=== PATIENT | female | born 1960 | race Caucasian/White ===

== ENCOUNTER → 2016-11-11 | Outpatient (CLI) | payer OTHER ==
--- NOTE | 2016-11-11 11:50 | DX ---
Abdomen 2 view 10:56 a.m. Indication: Right-sided pain. History of endometrial carcinoma. Evaluate for obstruction. Technique: Upright and supine views. Comparison: No abdominal imaging available for comparison. Findings: Lung bases are clear. Moderate volume of retained stool is present throughout the normal ca liber gaseous colon. Two loops of small bowel in the right lower quadrant are moderately distended. S everal small air-fluid levels reside in the upper central pelvis. No pneumoperitoneum or mass effect. Surgical clips are scattered throughout the low pelvis. No lytic or blastic bone lesions. Impression: Focal adynamic ileus versus early partial small bowel obstruction in the right lower briana drant. Comment: The results were called to Jeanine Self NP, at 1145 a.m. on November 11, 2016.
--- NOTE | 2016-11-11 11:52 | DX ---
Pelvis, single view Indication: Abdominal pain. History of endometrial carcinoma. Technique: Single supine view of the pelvis. Study was reviewed jointly with two-view abdomen reporte d separately. Findings: Mildly distended loops of small bowel in the right lower quadrant are better characterized on the two-view abdomen. Gas and stool are present throughout the colon down to the level of the rect um. Numerous surgical clips are scattered throughout the pelvis. No lytic or blastic bone lesions. Impression: 1. Abnormal small bowel pattern better characterized on the two-view of the abdomen. 2. No pelvic mass or bone lesion. Comment: Results were called to Jeanine Self NP, at 11:45 a.m. on November 11, 2016.
--- NOTE | 2016-11-11 12:08 | US ---
Complete Abdominal Ultrasound History: Nausea, vomiting and epigastric pain. History of endometrial cancer. Comparison: None available. Findings: The liver has normal echotexture and contour. There is no intrahepatic biliary dilatation. The common bile duct measures 5 mm and is normal. The gallbladder is normal. The kidneys have normal echotexture and contour without hydronephrosis or contour deforming masses. The right kidney measures 11.5 cm and the left kidney measures 10.9 cm. The spleen is normal, measuring 10.9 cm. The visible a darnell is normal caliber with extensive obscuration of the aorta by overlying bowel gas. The visible po rtions of the pancreas are normal with partial obscuration of the pancreatic head and tail by overlyi ng bowel gas. The visible portions of the IVC are normal. Impression: Normal abdominal ultrasound. Findings discussed with Jeanine Self NP 11/11/2016 at 12:06.
== END ==
LOC: FIMAGING 10:48
PROVIDERS: ATTEND Nurse Practitioner
DX: R93.3 Abnormal findings on diagnostic imaging of other parts of digestive tract (principal); R10.10 Upper abdominal pain, unspecified; R11.10 Vomiting, unspecified; Z85.42 Personal history of malignant neoplasm of other parts of uterus

== ENCOUNTER 2016-11-14 09:24 | Inpatient (IN) | payer OTHER ==
[2016-11-14 10:10] LABS: % IMMATURE GRANULOCYTES 0.2 % (0.0-1.1); ABSOLUTE IMMATURE GRANULOCYTES 0.01 10^3/uL (0-0.10); HEMATOCRIT 41.4 % (38.0-47.0); HEMOGLOBIN 13.7 g/dL (12.6-16.3); MEAN CELL HEMOGLOBIN 31.3 pg (27.9-34.1); MEAN CELL HEMOGLOBIN CONC. 33.1 g/dL (32.4-36.7); MEAN CELL VOLUME 94.5 fL (81.5-99.8); MEAN PLATELET VOLUME 9.3 fL (8.7-11.7); RED BLOOD CELL COUNT 4.38 10^6/uL (4.18-5.33); RED CELL DISTRIBUTION WIDTH 13.7 % (11.5-15.2)
[2016-11-14 10:34] LABS: ALANINE AMINOTRANSFERASE 33 IU/L (9-52); ALBUMIN 3.6 g/dL (3.5-5.0); ALKALINE PHOSPHATASE 66 IU/L (38-126); ANION GAP 7 mEq/L (8-16); ASPARTATE AMINOTRANSFERASE 26 IU/L (14-46); BILIRUBIN,TOTAL 0.8 mg/dL (0.1-1.4); CALCIUM 8.6 mg/dL (8.5-10.4); CARBON DIOXIDE 23 mEq/l (22-31); CHLORIDE 110 mEq/L (97-110); CREATININE 0.7 mg/dL (0.6-1.0); GLOMERULAR FILTRATION RATE > 60; GLUCOSE 94 mg/dL (70-100); SODIUM 140 mEq/L (134-144); TOTAL PROTEIN 6.1 g/dL (6.3-8.2)
[2016-11-14] MEDS ORDERED: ACETAMINOPHEN 650 MG SUPP PR PRN (12:19)
[2016-11-14] MEDS ORDERED: ONDANSETRON DISINTEGRATING 4 MG TAB PO PRN (12:19)
[2016-11-14] MEDS ORDERED: LORazepam 2 MG/ML INJ IVP PRN (12:19)
[2016-11-14] MEDS ORDERED: ONDANSETRON 4 MG/2 ML VIAL IVP PRN (12:19)
[2016-11-14] MEDS ORDERED: HYDROmorphONE/DILAUDID 1 MG/ML SYR IVP PRN (12:19)
[2016-11-14] MEDS ORDERED: NS 1,000 ML IV ONE (12:24)
[2016-11-14] MEDS ORDERED: D5W NS W/ 20 KCl/L 1,000 ML IV SCH (12:30)
--- NOTE | 2016-11-14 13:39 | GHP ---
[f rep st] HISTORY AND PHYSICAL DATE OF ADMISSION: 11/14/2016 CHIEF COMPLAINT: Abdominal pain. HISTORY OF PRESENT ILLNESS: The patient is a 56-year-old female with a history of metastatic endomet rial cancer followed by Dr. Amador at the [facility] who presents to the hospital for direct admission from the Cancer Clinic due to concern for a small bowel obstruction. She was in itially diagnosed with endometrial cancer in March of 2015. She underwent a hysterectomy with bilater al salpingo oophorectomy in March of 2015. She then underwent chemo and radiation therapy. Unfortdilia sauer, she had a recurrence in December of 2015, and required a partial colectomy. At that time, her CA- 125 was elevated. She underwent another round of chemo and radiation starting in January 2016. Most r ecently, she has been treated with Avastin and has been receiving Avastin every 3 weeks, most recentl y on November 06, 2015. Over the past 2 weeks, the patient has been suffering from crampy upper abdominal discomfort. She simon s had several episodes of vomiting. She does not have a bowel movement every day. Her last bowel mo vement was last night, which was loose followed by formed stool. She denies hematochezia or melanoti c stools. She denies fevers or chills. She was evaluated in the clinic 3 days ago, at which time an abdominal plain film x-ray was performed which showed a focal adynamic ileus versus partial small forest wel obstruction in the right lower quadrant. Her symptoms persist and upon re-evaluation in clinic mavis adame she was sent to the hospital for direct admission for further management. She has had poor oral intake. PAST MEDICAL HISTORY: 1. Metastatic endometrial cancer. 2. Hypertension. 3. Peripheral neuropathy. PAST SURGICAL HISTORY: 1. Radical hysterectomy/BSO in April 2015. 2. Sigmoid colon resection secondary to pelvic mass in January of 2016. 3. Tonsillectomy and adenoidectomy. MEDICATIONS: Please see [facility] for complete updated outpatient medication list. ALLERGIES: Paclitaxel. FAMILY HISTORY: She had a niece who of pancreatic cancer at age 48. She lost a brother to meso thelioma and lost another brother to some type of lung cancer. 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 She is a lifeti me nonsmoker. No significant alcohol use and no drug use. REVIEW OF SYSTEMS: A 10-point review of systems was performed and is negative except as per HPI. OBJECTIVE: VITAL SIGNS: Temperature is 36.8, blood pressure 160/103, heart rate 64, respiratory rat e 14. She is 96% on room air. GENERAL: The patient is awake, alert, oriented, no acute distress. HEENT: Head is atraumatic, normocephalic. Pupils equal, round, react to light. Extraocular muscles are intact. Oropharynx clear. Mucous membranes are dry. NECK: Supple. There is no JVD. HEART: Regular rate and rhythm without murmur. LUNGS: Clear to auscultation bilaterally. ABDOMEN: Soft, nondistended. Mild tenderness to palpation in the epigastrium and left lower quadrant without rebou nd, rigidity or guarding. There are no peritoneal signs. EXTREMITIES: Without cyanosis, clubbing o r edema. NEUROLOGIC: Grossly nonfocal. LABORATORY DATA: CBC is completely normal. Basic metabolic panel is also completely normal with nor mal creatinine of 0.7. LFTs are normal. Total protein is slightly low at 6.1. ASSESSMENT AND PLAN: The patient is a 56-year-old female with a history of metastatic endometrial ca ncer who is admitted to the hospital with abdominal pain possibly secondary to partial bowel obstruct ion. 1. Abdominal pain. I reviewed her imaging from November 11, at which time her abdominal plain film w as suggestive of an ileus versus a partial small bowel obstruction in the right lower quadrant. She appears volume depleted. We will give a normal saline fluid bolus followed by maintenance fluids. T he patient will be n.p.o. We will obtain a stat CT chest, abdomen and pelvis, and we will make a det ermination by an NG tube after I review her imaging. At this point, my suspicion for perforation is low though given her Avastin treatment she is certainly at risk for perforation. She appears nontoxi c and we will approach this conservatively for the time being and involve surgery as needed. 2. Metastatic endometrial cancer. The patient is followed by Dr. Amador at the [facility]. Oncology will consult during this hospitalization. Her last Avastin treatment was on ry 2. She has had a prior radical hysterectomy followed by a partial colon resection, both of which increase her risk for adhesions and may contribute to her small bowel obstruction. 3. Hypertension. Patient's blood pressure is quite elevated on arrival at 160/103. Since she is n. p.o., I am going to give her IV hydralazine. Could also add IV metoprolol, though her resting heart rate is currently in the 60s. 4. Deep venous thrombosis prophylaxis: Lovenox. CODE STATUS: Patient is full code. DISPOSITION: Patient is admitted to inpatient status. She will likely require greater than 48 hours hospitalization for ongoing management of her abdominal pain and suspected small bowel obstruction. /[id number]/MODL
--- NOTE | 2016-11-14 14:59 | GCON ---
[f rep st] CONSULTATION NEW PATIENT CONSULTATION. REQUESTING PHYSICIAN: Dr. Rolon. REASON FOR CONSULTATION: Patient with history of endometrial cancer, presents with partial small bow el obstruction. HISTORY OF PRESENT ILLNESS: This is a 56-year-old woman with a history of stage IA endometrial cance r diagnosed in 2014. This is a clear cell adenocarcinoma. She was ER positive. At that time, she h ad debulking surgery in 2014, and then went on to have a local pelvic recurrence in 2016 that was lar bharat than imaging showed, and she ended up having a large bowel resection. She was then treated with chemotherapy and Avastin, and also treated with radiation which completed in June of 2016. She has been on maintenance Avastin and doing well with the exception of a slightly rising CA-125. On , she presented to the office of Dr. Amador with complaints of abdominal pain that she had b een having for a couple of weeks. She noted some diarrhea and abdominal pain, but her son was sick w ith diarrhea as well. The abdominal pain continued, and she did report normal stools; however, she r eported vomiting after she drinks coffee. She had vomited a few times in the past 48 hours. She did have an abdominal ultrasound that was ordered at that time that showed mildly dilated loop in the tr ansverse colon. No complete obstruction. The patient was not acutely ill, and so tried to manage on an outpatient basis with a clear liquid diet and IV hydration. Unfortunately, she returned to the o ffice today, reporting that she had vomited applesauce last night. Her last dose of Avastin was 11/2016. She has some moderate abdominal pain, right upper quadrant, and she does report a normal stool yester day. She has not thrown up yet today. She is pending a stat CT chest abdomen pelvis to evaluate for either progression of disease in addition to a bowel obstruction or other. REVIEW OF SYSTEMS: She denies any current vomiting. She did have a bowel movement yesterday. She d enies any fever or fatigue. Her weight is stable. Denies any chest pain or shortness of breath. Ot herwise, review of systems are negative. PAST MEDICAL HISTORY: As described above. She has had neutropenic fever from treatment of endometri al cancer and dehydration previously. FAMILY HISTORY: Noncontributory. CURRENT MEDICATIONS: Have been reviewed. She has been on blood pressure medicines due to elevated b lood pressure, partly due to Avastin. She also has been given Megace alternating with tamoxifen. I do not know if she is still taking this. PHYSICAL EXAM: VITAL SIGNS: Currently show blood pressure 160/103, pulse is 64, respiration rate 14 , saturating 96% on room air, temp is 36.8. GENERAL: She is a middle-aged woman, very comfortable a ppearing, not in acute distress. HEENT: Anicteric. Oropharynx is clear. HEART: Regular rate and rhythm. LUNGS: Clear to auscultation bilaterally. ABDOMEN: Soft, not rigid. Bowel sounds are pos itive in all 4 quadrants. She has slight tenderness, right upper quadrant, without any palpable mass . EXTREMITIES: Lower extremities: No significant edema. LABS: Reviewed and all within normal limits. I will mention that her CEA is up slightly recently to 26.9. ASSESSMENT AND PLAN: A 56-year-old woman with a history of endometrial cancer, admitted with partial small bowel obstruction. Patient has recently been on Avastin maintenance therapy as well as anti-e strogen therapy for her endometrial cancer. 1. Small bowel obstruction. I feel very low likelihood that this is a perforation given how well sh e looks clinically. She is pending a CT abdomen at this time to evaluate further, but we are startin g with conservative management, n.p.o., IV fluids, possible nasogastric tube, etc. No need for antib iotics. 2. Endometrial cancer. Will also include a CT chest during this admission to evaluate for progressi on given her rising CA-125. 3. Blood pressure. Appreciate Internal Medicine. Probably partly due to Avastin. Consider checkin g a urinalysis for protein, either this admission or on discharge. 4. Prophylaxis. Agree with Lovenox. /[id number]/MODL
[2016-11-14] MEDS ORDERED: IOPAMIDOL (ISOVUE-300) 100 ML BTL IV ONE (15:31)
--- NOTE | 2016-11-14 16:42 | CT ---
CT Chest With IV Contrast History: History of metastatic endometrial carcinoma. History of radical hysterectomy and bilateral s alpingo-oophorectomy in April 2015. Partial sigmoid colon resection secondary to pelvic mass in January 2016. Technique: 1.5 mm helical images were obtained of the chest postintravenous contrast with 94 mL Isovu e-300. Multiplanar reformation was performed. Radiation dose reduction technique was utilized. Findings: Heart size is within normal limits. No evidence for pericardial effusion. No significant me diastinal or hilar lymphadenopathy. No significant axillary or supraclavicular lymphadenopathy. The l ungs are clear. No evidence for pulmonary nodule. No evidence for pneumonia. No evidence for pleural effusion. No aggressive osseous lesion. Impression: Normal CT of the chest.
--- NOTE | 2016-11-14 17:03 | CT ---
CT Scan of the Abdomen and Pelvis (With Contrast) Indication: Abdominal pain. History of metastatic endometrial carcinoma. Status post hysterectomy an d bilateral salpingo-oophorectomy in April 2015. History of sigmoid colon resection secondary to pelvi c mass in January 2016. Technique: 94 mL of Isovue 300 were given intravenously by machine power injection. Multidetector he lical CT imaging was performed from the diaphragm to the symphysis pubis. Dose reduction techniques w ere utilized. Comparison: Scan from [facility] October 2016. Findings: Abdomen: No focal liver lesion. Gallbladder is unremarkable. Pancreas is unremarkable. Spleen is unr emarkable. Both adrenal glands are normal in size and appearance. Both kidneys enhance normally witho ut evidence for mass or hydronephrosis. No significant abdominal lymphadenopathy. Pelvis: There is multiple loops of small bowel in the anterior pelvis with bowel wall thickening and adjacent stranding in the mesentery. This has increased or new over the interval. Proximal to this, there are loops of small bowel which are dilated with air-fluid levels. This would indicate there is a partial small bowel obstruction, this level of the distal small bowel in the anterior inferior pelv is. The patient is status post hysterectomy. Surgical clips are seen along the iliac vessels in the p ingris from prior lymph node dissection. No enlarged pelvic lymph nodes are visualized. There is some subtle stranding or soft tissue attenuation anterior to the sacrum. There is also evidence of partial bowel resection of the sigmoid colon with nodular soft tissue at the anastomosis, but no obstruction . No evidence for bladder calculi. No significant free fluid in the pelvis. No evidence for free intr aperitoneal air. No aggressive osseous lesion. Impression: There are multiple loops of small bowel in the anterior inferior pelvis with bowel wall thickening and adjacent stranding in the mesentery. Proximal to this, there are loops of small bowel with air-fluid levels and mildly dilated indicating partial small bowel obstruction. With the history of metastatic endometrial carcinoma, this is likely the etiology to the thickened bowel wall and str anding. Question also some subtle soft tissue anterior to the sacrum. Additionally, there is nodulari ty of the wall at the anastomosis at the sigmoid colon, but no evidence for obstruction.
[2016-11-14] MEDS: hydrALAZINE 20 MG/ML VIAL IVP PRN (18:14)
[2016-11-14] MEDS: PROMETHAZINE HCL 25 MG/ML INJ IVP PRN (18:24)
--- NOTE | 2016-11-14 18:40 | DX ---
Portable AP Upright Chest, at 6:12 PM Clinical History: 56-year-old female inpatient for confirmation of nasogastric tube placement. Comparison Studies: Chest, dated 01/26/2016, and the report of CT imaging of the chest, abdomen, and p ingris from this afternoon. Findings: There is an esophagogastric tube with the side-port and the distal tip terminating at the l evel of the gastric fundus. There are mild hypoventilatory features with some left basilar linear sca rring, similar to the 2016 study. The cardiac and mediastinal silhouette is within normal limits, giv en the portable AP technique and mildly diminished inspiratory effort. There is no pleural effusion, peripheral interstitial edema, or pneumothorax. There are some nonspecific air-filled loops of colon in the upper abdomen. There is no free, subdiaphragmatic air. Impression: The esophagogastric tube terminates at the level of the gastric fundus.
[2016-11-15] MEDS: ENOXAPARIN 40 MG/0.4 ML SYR SC SCH (08:12)
[2016-11-15 09:02] LABS: ANION GAP 10 mEq/L (8-16); CALCIUM 8.1 mg/dL (8.5-10.4); CARBON DIOXIDE 21 mEq/l (22-31); CHLORIDE 116 mEq/L (97-110); CREATININE 0.6 mg/dL (0.6-1.0); GLOMERULAR FILTRATION RATE > 60; GLUCOSE 101 mg/dL (70-100); POTASSIUM 4.1 mEq/L (3.5-5.2); SODIUM 147 mEq/L (134-144)
--- NOTE | 2016-11-15 11:05 | HOSPPROG ---
Hospitalist Progress Note Assessment/Plan: Partial SBO in setting of metastatic endometrial cancer s/p prior radical hysterectomy and partial colon resection - CT shows bowel wall thickening with air fluid levels. NG tube in place. She is having BM's, but has suffered for 2 weeks with crampy abdominal pain and intermittent vomiting. Reviewed CT with Dr. Calvert, general surgery. This is concerning for malignant/metastatic etiology, but she is on Avastin, which would increase risk of wound healing problems. May need to wait until further out from last Avastin dose prior to pursuing surgical intervention. Dr. Salazar did prior surgery. -Oncology to see -Appreciate surgical input -Cont conservative management for now with NG tube, NPO, IVF's Hypertension - a bit improved, cont IV hydralazine, resume oral anti- hypertensives when taking po Hypernatremia - Change to 1/2 NS Full code Dispo - cont inpt Subjective: Pt feels a bit better. No vomiting. She did have a BM this am. No fevers/chills. No significant abdominal pain. NG tube in place, not much output. Objective: Vital Signs Temp Pulse Resp BP Pulse Ox 37 C 74 16 146/98 H 94 11/15/16 07:54 11/15/16 07:54 11/15/16 07:54 11/15/16 07:54 11/15/16 07:54 Laboratory Results 11/14/16 09:50 11/15/16 08:10 11/14/16 11/15/16 11/16/16 05:59 05:59 05:59 Intake Total 2430 Balance 2430 - Physical Exam Constitutional: no apparent distress Eyes: PERRL Ears, Nose, Mouth, Throat: moist mucous membranes Cardiovascular: regular rate and rhythym Respiratory: no respiratory distress Gastrointestinal: other (+BS, mild diffuse TTP without r/r/g) Skin: warm Neurologic: AAOx3 Psychiatric: interacting appropriately ICD10 Worksheet Patient Problems: Problems Problem Status Diagnosed Myalgia Acute Neutropenic fever Acute
[2016-11-15] MEDS: D5W 1/2 NS W/ 20 KCl/L 1,000 ML IV SCH ×2 (11:22→19:45)
[2016-11-15] MEDS: hydrALAZINE 20 MG/ML VIAL IVP PRN (12:16)
--- NOTE | 2016-11-15 12:58 | GCON ---
[f rep st] CONSULTATION REFERRING PHYSICIAN: Selena Rolon MD REASON FOR CONSULTATION: Nausea, vomiting, bowel obstruction of uncertain etiology. HISTORY: The patient is a 56-year-old white female with a history of metastatic endometrial carcinoma. She was admitted directly to the hospital from the Cancer Clinic due to nausea and vomiting. A CAT scan had been performed, which showed a mid small-bowel proximal dilatation and a distal small -bowel collapse, but with contrast in the distal small bowel and transverse colon. She has been in the hospital with NG suction, and I was asked to see her to aid in her evaluation. She had a hysterectomy with bilateral salpingo-oophorectomy in March of 2015 for a diagnosis of endometrial carcinoma. She underwent chemotherapy and radiation therapy, but developed a recurrence in her sigmoid colon in December of 2015, requiring a partial colectomy. She has been treated with Avastin and has been receiving it every 4 weeks. Her last dose was on November 06. For the past 2 weeks, she has been suffering a crampy abdominal pain that occurs after eating. This would pass but was complicated by vomiting. She had her last bowel movement the day prior to admission. On examining the CAT scan, there certainly is an area of narrowing in the mid small bowel with dilated bowel with a thicken wall proximal to it and collapsed bowel distal to it. I initially thought that it was a neoplastic partial obstruction, but on going through it on several planes, I believe it is just a very tightly compressed loop of bowel probably secondary to adhesive issues. I do recommend that we continue with decompression, with hopes that this area will open up. If it does, then I recommend a small-bowel follow-through in approximately a week or two (so we do not get any false positives), and then consideration can be given to whether intervention would be appropriate. With her Avastin, I would like to wait a total of 4 weeks (3 more weeks) before surgically approaching this patient, unless it becomes an absolute necessity. I will continue to follow with you. /[id number]/MODL MTDD
--- NOTE | 2016-11-15 13:48 | SOAPPROG ---
SOAP Progress Note Assessment/Plan: Assessment: - Partial small bowel obstruction - NG in place, had diarrhea several times last night. Nausea has resolved. Etiology is unclear. Could be adhesion or cancer or both. For now conservative management is appropriate. Her most recent dose of Avastin was on 11/06/2016. Ideally 30 days should pass prior to surgery unless the clinical situation forces earlier intervention. - Endometrial CA (recurrent) - patient has been in remission after taxotere/ carboplatin/Avastin followed by Avastin/tamoxifen alternating with Megace. CA125 is up a bit, but increase could be related to peritoneal inflammation. Plan: Conservative management for now with NG/IV fluids Surgery if clinically urgent situation develops. Subjective: Nausea better. NG not particularly bothersome Objective: Vital Signs Temp Pulse Resp BP Pulse Ox 36.9 C 77 16 154/93 H 93 11/15/16 12:13 11/15/16 12:13 11/15/16 07:54 11/15/16 13:19 11/15/16 12:13 Laboratory Results 11/14/16 09:50 11/15/16 08:10 11/13/16 11/14/16 11/15/16 23:59 23:59 23:59 Intake Total 1000 1430 Balance 1000 1430 Physical Exam - Physical Exam General Appearance: alert, no apparent distress Respiratory: lungs clear Cardiac/Chest: regular rate, rhythm Abdomen: other (hyperactive bowel sounds) Skin: warm/dry Neuro/Psych: normal mood/affect, oriented x 3 ICD10 Worksheet Patient Problems: Problems Problem Status Diagnosed Myalgia Acute Neutropenic fever Acute
[2016-11-15] MEDS: PROMETHAZINE HCL 25 MG/ML INJ IVP PRN (18:12)
[2016-11-16 05:26] LABS: % IMMATURE GRANULYOCYTES 0.5 % (0.0-1.1); ABSOLUTE IMMATURE GRANULOCYTES 0.02 10^3/uL (0.00-0.10); ADD DIFF? NO; ADD MORPH? NO; ADD SCAN? NO; ATYPICAL LYMPHOCYTE FLAG 30 (0-99); FRAGMENT RBC FLAG 0 (0-99); HEMATOCRIT 39.3 % (38.0-47.0); LEFT SHIFT FLG 0 (0-99); LIPEMIA HEMOLYSIS FLAG 80 (0-99); MEAN CELL HEMOGLOBIN 30.9 pg (27.9-34.1); MEAN CELL HEMOGLOBIN CONCENTR. 33.1 g/dL (32.4-36.7); MEAN CELL VOLUME 93.3 fL (81.5-99.8); MEAN PLATELET VOLUME 9.1 fL (8.7-11.7); PLATELET CLUMPS FLAG 0 (0-99); PLATELET COUNT 171 10^3/uL (150-400); RED BLOOD CELL COUNT 4.21 10^6/uL (4.18-5.33); RED CELL DISTRIBUTION WIDTH 14.3 % (11.5-15.2)
[2016-11-16 05:54] LABS: ALANINE AMINOTRANSFERASE 32 IU/L (9-52); ALBUMIN 3.1 g/dL (3.5-5.0); ALKALINE PHOSPHATASE 61 IU/L (38-126); ANION GAP 8 mEq/L (8-16); ASPARTATE AMINOTRANSFERASE 27 IU/L (14-46); BILIRUBIN,TOTAL 0.9 mg/dL (0.1-1.4); CALCIUM 8.2 mg/dL (8.5-10.4); CARBON DIOXIDE 21 mEq/l (22-31); CHLORIDE 113 mEq/L (97-110); CREATININE 0.6 mg/dL (0.6-1.0); GLOMERULAR FILTRATION RATE > 60; GLUCOSE 103 mg/dL (70-100); POTASSIUM 3.9 mEq/L (3.5-5.2); SODIUM 142 mEq/L (134-144); TOTAL PROTEIN 5.6 g/dL (6.3-8.2)
--- NOTE | 2016-11-16 08:33 | SOAPPROG ---
SOAP Progress Note Assessment/Plan: 11/16/16 08:29 Assessment: * SBO -She had a second episode of diarrhea yesterday and non-productive vomiting last night x1. Abdomen soft with non-high pitched BS. SBO resolving. abdominal Xray pending Plan: Will consider recommending NG removal if abd xray not worrisome. If NG out would try clear liquids and consider SBFT next week after bowel regains muscular tone to assess the need for intervention Subjective: I feel better Objective: Vital Signs Temp Pulse Resp BP Pulse Ox 36.6 C 77 16 182/93 H 97 11/16/16 07:57 11/16/16 07:57 11/16/16 07:57 11/16/16 07:57 11/16/16 07:57 Laboratory Results 11/16/16 04:59 11/16/16 04:59 11/15/16 11/16/16 11/17/16 05:59 05:59 05:59 Intake Total 2430 1500 Output Total 200 Balance 2430 -200 1500 - Time Spent With Patient Time Spent With Patient: 15 - Pending Discharge Pending Discharge Within 24 Hours: No Pending Discharge Within 48 Hours: No Physical Exam - Physical Exam General Appearance: WD/WN, alert, mild distress Neck: non-tender, full range of motion, supple Abdomen: non-tender, soft, other (Active non-high pitched bowel sounds) ICD10 Worksheet Patient Problems: Problems Problem Status Diagnosed Myalgia Acute Neutropenic fever Acute
[2016-11-16] MEDS: ENOXAPARIN 40 MG/0.4 ML SYR SC SCH (09:15)
--- NOTE | 2016-11-16 10:39 | DX ---
KUB, 3 views. History: Follow-up SPO. Comparison Study: Abdominal CT November 14, 2016. Findings: Mildly dilated small bowel loops are identified in the left upper quadrant, with air-fluid levels. These loops appear less distended when compared to prior CT examination. The distal small bow el is decompressed. Colon appears normal. Nasogastric tube extends to the gastric fundus. Postsurgical clips are present in the abdomen and pelvis. No free air noted. Impression: 1. Mildly dilated small bowel loops left upper quadrant, decreased in severity from prior CT. Otherwi se unremarkable..
--- NOTE | 2016-11-16 12:23 | HOSPPROG ---
Hospitalist Progress Note Assessment/Plan: Partial SBO in setting of metastatic endometrial cancer s/p prior radical hysterectomy and partial colon resection - Improving. 2 weeks of crampy abdominal pain and intermittent vomiting prior to admission. CT showed small bowel wall thickening with air fluid levels. Reviewed CT with Dr. Calvert, general surgery. Some concern for metastatic disease causing small bowel wall thickening vs adhesions. Plain film this am shows improvement. NG tube out. She is on Avastin, last dose 9 days ago. Would ideally wait until at least 30 days post Avastin for consideration of surgery should it require surgical intervention. -Trial clears -possible SBFT next week to assess need for intervention, per surgery -appreciate surgery and oncology assistance Hypertension - resume oral meds now that she is taking PO, prn hydralazine. May need a 2nd agent if BP persists elevated. Hypernatremia - Resolved. IVF's dc'd today as taking clears well. Full code Dispo - cont inpt, possible dc tomorrow if continues to improve and tolerates diet. Subjective: Pt feels better. She vomited once last night, she thinks may have been induced by a headache. No significant abdominal pain. No N/V today. Some diarrheal stool after contrast from CT. Objective: Vital Signs Temp Pulse Resp BP Pulse Ox 36.6 C 77 16 182/93 H 97 11/16/16 07:57 11/16/16 07:57 11/16/16 07:57 11/16/16 07:57 11/16/16 07:57 Laboratory Results 11/16/16 04:59 11/16/16 04:59 11/15/16 11/16/16 11/17/16 05:59 05:59 05:59 Intake Total 2430 1500 Output Total 200 Balance 2430 -200 1500 - Physical Exam Constitutional: no apparent distress Eyes: PERRL Ears, Nose, Mouth, Throat: moist mucous membranes Cardiovascular: regular rate and rhythym Respiratory: no respiratory distress, clear to auscultation Gastrointestinal: normoactive bowel sounds, other (mild ttp, no r/r/g) Skin: warm Neurologic: AAOx3 Psychiatric: interacting appropriately ICD10 Worksheet Patient Problems: Problems Problem Status Diagnosed Myalgia Acute Neutropenic fever Acute
--- NOTE | 2016-11-16 13:25 | SOAPPROG ---
SOAP Progress Note Assessment/Plan: Assessment: - Partial small bowel obstruction - Her NG is out. She is taking clear liquids. Had diarrhea. Xray of abdomen shows improvement. - Endometrial CA (recurrent) - patient has been in remission after taxotere/ carboplatin/Avastin followed by Avastin/tamoxifen alternating with Megace. CA125 is up a bit, but increase could be related to peritoneal inflammation. Plan: If tolerating PO over the next 24hrs., I would think she could go home 17 NOV 2016. Subjective: Had a headache yesterday which she attributes to no caffeine. Better now. Objective: Vital Signs Temp Pulse Resp BP Pulse Ox 36.6 C 77 16 182/93 H 97 11/16/16 07:57 11/16/16 07:57 11/16/16 07:57 11/16/16 07:57 11/16/16 07:57 Laboratory Results 11/16/16 04:59 11/16/16 04:59 11/14/16 11/15/16 11/16/16 23:59 23:59 23:59 Intake Total 1000 1430 1500 Output Total 200 Balance 1000 1230 1500 Physical Exam - Physical Exam General Appearance: alert, no apparent distress Respiratory: lungs clear Cardiac/Chest: regular rate, rhythm Abdomen: normal bowel sounds, other (mild diffuse tenderness without rebound tenderness.) ICD10 Worksheet Patient Problems: Problems Problem Status Diagnosed Myalgia Acute Neutropenic fever Acute
[2016-11-16] MEDS: amLODIPine BESYLATE 5 MG TAB PO SCH ×2 (15:26→20:46)
[2016-11-16] MEDS: hydrALAZINE 20 MG/ML VIAL IVP PRN (20:51)
[2016-11-16] MEDS ORDERED: GABAPENTIN 300 MG CAP PO SCH (21:00)
[2016-11-17 05:17] VITALS: TEMP 98.5
[2016-11-17 06:43] LABS: ANION GAP 8 mEq/L (8-16); CALCIUM 8.8 mg/dL (8.5-10.4); CARBON DIOXIDE 22 mEq/l (22-31); CHLORIDE 110 mEq/L (97-110); CREATININE 0.7 mg/dL (0.6-1.0); GLOMERULAR FILTRATION RATE > 60; GLUCOSE 86 mg/dL (70-100); SODIUM 140 mEq/L (134-144)
[2016-11-17 08:48] VITALS: PULSE 73; RESP 20; O2SAT 93
[2016-11-17] MEDS: ENOXAPARIN 40 MG/0.4 ML SYR SC SCH (08:50)
--- NOTE | 2016-11-17 09:05 | SOAPPROG ---
SOAP Progress Note Assessment/Plan: 11/16/16 08:29 Assessment: * SBO -She had a second episode of diarrhea yesterday and non-productive vomiting last night x1. Abdomen soft with non-high pitched BS. SBO resolving. abdominal Xray pending Plan: Will consider recommending NG removal if abd xray not worrisome. If NG out would try clear liquids and consider SBFT next week after bowel regains muscular tone to assess the need for intervention 11/17/16 09:01 Assessment: SBO, partial - Doing well since NG out. Tolerating clear liquids. Normal bowel sounds but tympani present. Plan: Awaiting xray this AM. If only minimally obstructive, would try pureed diet. If tolerates would discharge on pureed diet and get FU SBFT next week. Would suggest FU with Dr. Alaniz' group. Subjective: No bloating but no stool or flatus. "I feel better" Objective: Vital Signs Temp Pulse Resp BP Pulse Ox 36.9 C 73 20 180/126 H 93 11/17/16 08:44 11/17/16 08:44 11/17/16 08:44 11/17/16 08:44 11/17/16 08:44 Laboratory Results 11/16/16 04:59 11/17/16 05:38 11/16/16 11/17/16 11/18/16 05:59 05:59 05:59 Intake Total 2750 Output Total 200 Balance -200 2750 - Time Spent With Patient Time Spent With Patient: 25 Physical Exam - Physical Exam General Appearance: alert, no apparent distress Neck: non-tender, full range of motion, supple Respiratory: chest non-tender, lungs clear, normal breath sounds Cardiac/Chest: regular rate, rhythm Abdomen: non-tender, soft Back: Normal inspection Skin: normal color, warm/dry Neuro/Psych: alert, normal mood/affect, oriented x 3 ICD10 Worksheet Patient Problems: Problems Problem Status Diagnosed Myalgia Acute Neutropenic fever Acute
[2016-11-17 10:49] VITALS: BP 170/98
--- NOTE | 2016-11-17 12:46 | SOAPPROG ---
SOAP Progress Note Assessment/Plan: Assessment: - Partial small bowel obstruction - Her NG is out. She is taking clear liquids. Had diarrhea. Xray of abdomen today looks about the same - Endometrial CA (recurrent) - patient has been in remission after taxotere/ carboplatin/Avastin followed by Avastin/tamoxifen alternating with Megace. CA125 is up a bit, but increase could be related to peritoneal inflammation. Plan: Advance to pureed diet Subjective: Feels ok, loose bm this am 11/17/16 12:44 Objective: Vital Signs Temp Pulse Resp BP Pulse Ox 98.5 F 73 20 170/98 H 93 11/17/16 08:44 11/17/16 08:44 11/17/16 08:44 11/17/16 10:49 11/17/16 08:44 Laboratory Results 11/16/16 04:59 11/17/16 05:38 11/16/16 11/17/16 11/18/16 05:59 05:59 05:59 Intake Total 2750 Output Total 200 Balance -200 2750 Physical Exam - Physical Exam General Appearance: no apparent distress Respiratory: lungs clear Cardiac/Chest: regular rate, rhythm Abdomen: distended (Bs present, may be increased a bit) ICD10 Worksheet Patient Problems: Problems Problem Status Diagnosed Myalgia Acute Neutropenic fever Acute
--- NOTE | 2016-11-17 18:17 | DX ---
[facility] Abdomen View at 0901 hours Indication: Endometrial carcinoma, small bowel obstruction. Technique: PA chest , upright and supine abdominal views. Comparison: November 14, 2016. Findings: The lungs are clear. Heart size is normal. No pneumoperitoneum. Surgical clips in the pelvis. Residual contrast throughout the colon and rectosigmoid region from CT November 14, 2016. Multiple air-fluid levels throughout the small bowel and colon suggesting ileus . No asymmetric distention of the small bowel. Impression: Persistent ileus.
--- NOTE | 2016-11-17 19:44 | GDS ---
[f rep st] DISCHARGE SUMMARY DISCHARGE DIAGNOSES: Include: 1. Acute small-bowel obstruction, secondary to metastatic endometrial cancer. 2. Metastatic endometrial cancer, status post radical hysterectomy and partial colon resection. 3. Hypertension. 4. Hypernatremia, secondary to volume depletion. HISTORY OF PRESENT ILLNESS: A 56-year-old female, who presented with complaints of abdominal crampin g, nausea and vomiting. For details of patient's initial presentation, please see the history and ph ysical dated 11/14/2016. CONSULTATIVE SERVICES: 1. Include General Surgery, Dr. Calvert. 2. Oncology. PROCEDURES ON THIS PATIENT: On 11/14/2016, patient had a CT of the chest and abdomen that showed nor mal chest imaging and findings consistent with partial small-bowel obstruction. HOSPITAL COURSE BY ISSUE: 1. Small-bowel obstruction. Patient was admitted and treated with medical management, fluid resusci tation, supportive care, pain management, and antiemetics. On the day of disposition, her diet has be en advanced to a smooth texture diet which she is tolerating. She is to discharge home on the same d iet with a Gastrografin study in approximately 1 week's time to be coordinated by the outpatient surg ical team, who will determine at that point appropriate advancement of her diet. 2. Endometrial cancer, recurrent. Patient is followed closely by [facility], Dr. Joey rocha. They will continue her oncologic management post disposition. 3. Hypernatremia. This was treated with IV fluid resuscitation. Patient's sodium was 140 on the da y disposition. MEDICATIONS AT THE TIME OF DISPOSITION: Please reference medication reconciliation printed on 2016. FOLLOWUP APPOINTMENTS: Include: 1. With Dr. Amador. 2. With Dr. [place] with Dr. Alaniz's surgical group in approximately 1 week's time for Gastrograf in study. I spent greater than 30 minutes in the planning and coordination of this discharge. /[id number]/MODL
== END 2016-11-17 18:03 | disposition home or self-care (01) | DRG 389 ==
LOC: RMCCLAB 09:24 → EDSTATUS 10:00 → F1N 10:53
PROVIDERS: ADMIT Internal Medicine; ATTEND Hospitalist
DX: K56.69 Other intestinal obstruction (principal); C78.5 Secondary malignant neoplasm of large intestine and rectum; E87.0 Hyperosmolality and hypernatremia; I10 Essential (primary) hypertension; G62.9 Polyneuropathy, unspecified; Z85.42 Personal history of malignant neoplasm of other parts of uterus; Z90.49 Acquired absence of other specified parts of digestive tract; Z90.710 Acquired absence of both cervix and uterus; Z90.722 Acquired absence of ovaries, bilateral
CPT/HCPCS: 86304-90; J0360; J1650; J2405; J2550; Q9967

== ENCOUNTER → 2016-11-28 | Outpatient (CLI) | payer OTHER | LOC: FIMAGING 09:24 | PROVIDERS: ATTEND Surgery | DX: K56.69 Other intestinal obstruction (principal); Z85.41 Personal history of malignant neoplasm of cervix uteri ==

== ENCOUNTER 2016-12-09 12:30 | Inpatient (IN) | payer OTHER ==
[~2016-12-09 12:30] MED LIST: BUPIVACAINE 0.5% 30 ML SDV ONE; SKIN ADHESIVE (DERMABOND) 1 EACH TP ONE; cefOXitin SODIUM 1 GM in D5W 50 ML IV ONE
[2016-12-09] MEDS ORDERED: LIDOCAINE 1% 5 ML SDV ONE (13:02)
[2016-12-09] MEDS ORDERED: MIDAZOLAM 2 MG/2 ML VIAL ONE (13:24)
[2016-12-09] MEDS ORDERED: PROPOFOL/EMULSION 500 MG/50 ML BOTTLE IV ONE ×2 (13:44→15:16)
[2016-12-09] MEDS ORDERED: fentaNYL 100 MCG/2 ML INJ ONE ×2 (13:44→19:15)
[2016-12-09] MEDS ORDERED: ROCURONIUM 50 MG/5 ML VIAL ONE (13:45)
[2016-12-09] MEDS ORDERED: LIDOCAINE 2% 5 ML SDV ONE ×2 (13:45→13:47)
[2016-12-09] MEDS ORDERED: LIDOCAINE HCL 160 MG/4 ML LTA KIT TP ONE (13:45)
[2016-12-09] MEDS ORDERED: DEXAMETHASONE 4 MG/ML VIAL ONE ×2 (13:54)
[2016-12-09] MEDS ORDERED: LR 1,000 ML IV ONE (13:58)
[2016-12-09] MEDS ORDERED: LIDOCAINE 1% 5 ML SDV ID PRN (13:58)
[2016-12-09] MEDS ORDERED: HYDROmorphONE/DILAUDID 2 MG/ML INJ ONE (14:27)
[2016-12-09] MEDS ORDERED: PHENYLEPHRINE 0.5% NASAL 15 ML SPRAY ONE (15:38)
[2016-12-09] MEDS ORDERED: ONDANSETRON 4 MG/2 ML VIAL ONE ×2 (17:25→18:50)
[2016-12-09] MEDS ORDERED: KETOROLAC 30 MG/1 ML SDV ONE (17:35)
[2016-12-09] MEDS ORDERED: ACETAMINOPHEN 325 MG TAB PO PRN (17:37)
[2016-12-09] MEDS ORDERED: diphenhydrAMINE 25 MG CAP PO PRN (17:37)
[2016-12-09] MEDS ORDERED: ONDANSETRON DISINTEGRATING 4 MG TAB PO PRN (17:37)
[2016-12-09] MEDS ORDERED: NALOXONE HCL 0.4 MG/ML INJ IVP PRN (17:40)
[2016-12-09] MEDS ORDERED: PIPERACILLIN/TAZO 3.375 GM/DEX 50 ML IV SCH (18:00)
--- NOTE | 2016-12-09 18:53 | POSTOPPROG ---
Post Op Note Date of Operation: 12/09/16 Surgeon: Rianna Salazar Steel Worker: miguel Anesthesiologist: kandice Anesthesia: GET(General Endotracheal) Pre-op Diagnosis: SBO Post-op Diagnosis: same Indication: 56yo F with a h/o endometrial ca with persistent SBO Procedure: laparotomy with adhesiolysis and small bowel resection, appendectomy Findings: extensive adhesions and radiation changes Inf/Abcess present in the surg proc area at time of surgery?: No Depth: Organ Space EBL: 50-100 Complications: none immediately postoperatively Specimen(s): small bowel appendix
[2016-12-09] MEDS: HYDROmorphONE/DILAUDID 6 MG/30 ML PCA IV PRN (20:30)
[2016-12-09] MEDS: PIPERACILLIN/TAZO 3.375 GM/DEX 50 ML IV SCH (20:44)
[2016-12-10] MEDS: PIPERACILLIN/TAZO 3.375 GM/DEX 50 ML IV SCH ×4 (02:10→20:10)
[2016-12-10] MEDS: ONDANSETRON 4 MG/2 ML VIAL IVP PRN ×2 (05:35→17:06)
[2016-12-10 05:54] LABS: ADD MORPH? NO; ADD SCAN? YES; ATYPICAL LYMPHOCYTE FLAG 60 (0-99); FRAGMENT RBC FLAG 0 (0-99); HEMOGLOBIN 14.8 g/dL (12.6-16.3); LEFT SHIFT FLG 300 (0-99); LIPEMIA HEMOLYSIS FLAG 80 (0-99); MEAN CELL HEMOGLOBIN 31.9 pg (27.9-34.1); MEAN CELL HEMOGLOBIN CONCENTR. 33.6 g/dL (32.4-36.7); MEAN CELL VOLUME 94.8 fL (81.5-99.8); MEAN PLATELET VOLUME 9.3 fL (8.7-11.7); PLATELET CLUMPS FLAG 0 (0-99); PLATELET COUNT 164 10^3/uL (150-400); RED BLOOD CELL COUNT 4.64 10^6/uL (4.18-5.33)
[2016-12-10 06:27] LABS: ADD DIFF? YES; SCAN POSITIVE
[2016-12-10 06:51] LABS: PLATELET ESTIMATE DECREASED (ADEQ)
[2016-12-10] MEDS: NS 1,000 ML IV SCH (08:04)
[2016-12-10] MEDS: ENOXAPARIN 40 MG/0.4 ML SYR SC SCH (08:17)
[2016-12-10] MEDS ORDERED: PROMETHAZINE HCL 25 MG/ML INJ IVP PRN (08:34)
[2016-12-10] MEDS ORDERED: LORazepam 2 MG/ML INJ IVP PRN (09:10)
--- NOTE | 2016-12-10 09:15 | SOAPPROG ---
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 Ice chips ok. Continue marquez for accurate I/Os Continue NG to suction NG was 60 in OR, now 55. Switch to formal NG dressing. If continues to come out , will need to advance Seen with Dr. Salazar. Continue inpatient until return of bowel function S: had several episodes of retching. though to be due to sinus drainage and NG tube. Pain controlled O: laying in bed, comfortable, NAD No increased WOB NG with green brown output hypoactive bs, softly distended. Incision CDI Marquez clear yellow urine Objective: Vital Signs Temp Pulse Resp BP Pulse Ox 36.8 C 101 H 16 149/112 H 98 12/10/16 08:10 12/10/16 08:10 12/10/16 08:10 12/10/16 08:10 12/10/16 08:10 Laboratory Results 12/10/16 05:19 12/09/16 12/10/16 12/11/16 05:59 05:59 05:59 Output Total 225 Balance -225 ICD10 Worksheet Patient Problems: Problems Problem Status Onset Myalgia Acute Neutropenic fever Acute
[2016-12-10] MEDS: FLUCONAZOLE/NaCl 100 ML IV SCH (09:33)
[2016-12-10] MEDS: SCOPOLAMINE HYDROBROMIDE 1.5 MG PATCH TD SCH (18:23)
[2016-12-10] MEDS: ACETAMINOPHEN 650 MG/20.3 ML UDCUP TUBE PRN (20:43)
[2016-12-11] MEDS: PIPERACILLIN/TAZO 3.375 GM/DEX 50 ML IV SCH ×4 (02:23→20:14)
[2016-12-11] MEDS: NS 1,000 ML IV SCH (05:49)
[2016-12-11 08:39] LABS: ADD MORPH? NO; ADD SCAN? YES; ATYPICAL LYMPHOCYTE FLAG 0 (0-99); FRAGMENT RBC FLAG 0 (0-99); HEMOGLOBIN 11.8 g/dL (12.6-16.3); LIPEMIA HEMOLYSIS FLAG 80 (0-99); MEAN CELL HEMOGLOBIN 31.3 pg (27.9-34.1); MEAN CELL HEMOGLOBIN CONCENTR. 31.9 g/dL (32.4-36.7); MEAN CELL VOLUME 98.1 fL (81.5-99.8); MEAN PLATELET VOLUME 9.6 fL (8.7-11.7); PLATELET CLUMPS FLAG 0 (0-99); PLATELET COUNT 141 10^3/uL (150-400); RED BLOOD CELL COUNT 3.77 10^6/uL (4.18-5.33); RED CELL DISTRIBUTION WIDTH 14.6 % (11.5-15.2)
[2016-12-11 08:40] LABS: LEFT SHIFT FLG 300 (0-99)
[2016-12-11 09:03] LABS: ANION GAP 7 mEq/L (8-16); CALCIUM 7.9 mg/dL (8.5-10.4); CARBON DIOXIDE 25 mEq/l (22-31); CHLORIDE 109 mEq/L (97-110); CREATININE 0.8 mg/dL (0.6-1.0); GLOMERULAR FILTRATION RATE > 60; GLUCOSE 89 mg/dL (70-100); SODIUM 141 mEq/L (134-144)
[2016-12-11 09:27] LABS: ADD DIFF? YES; SCAN POSITIVE
[2016-12-11 09:31] LABS: PLATELET ESTIMATE DECREASED (ADEQ)
[2016-12-11] MEDS: D5W 1/2 NS W/ 20 KCl/L 1,000 ML IV SCH ×2 (10:06→20:40)
[2016-12-11] MEDS: FLUCONAZOLE/NaCl 100 ML IV SCH (10:06)
--- NOTE | 2016-12-11 10:16 | SOAPPROG ---
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 3 L O2 Cards - no hemodynamic instability. H/H down today GI - awaiting return of bowel function. Expect about a week. Bowel was very edematous and dilated. Keep NG. Ice chips ad marce -Cramer out today Heme/ID - Lovenox. Zosyn and Fluconazole day 2/5. Spillage of enteric contents during surgery and on chemo Dispo - Continue hospital management S: Pain is tolerated. Phenergan shortage. Using scopolamine, ativan and zofran O: Lying in bed, appears comfortable Lungs CTAB Regular rate Hypoactive bowel sounds. More distended today. Dressing dry Maribel urine Plan: 12/11/16 10:12 Objective: Vital Signs Temp Pulse Resp BP Pulse Ox 36.6 C 89 18 131/85 H 96 12/11/16 10:00 12/11/16 10:00 12/11/16 10:00 12/11/16 10:00 12/11/16 10:00 Laboratory Results 12/11/16 08:12 12/11/16 08:12 12/10/16 12/11/16 12/12/16 05:59 05:59 05:59 Intake Total 3014 1156 Output Total 225 600 300 Balance -225 4684 823 ICD10 Worksheet Patient Problems: Problems Problem Status Onset Myalgia Acute Neutropenic fever Acute
[2016-12-11] MEDS: ENOXAPARIN 40 MG/0.4 ML SYR SC SCH (11:06)
[2016-12-11] MEDS: HYDROmorphONE/DILAUDID 6 MG/30 ML PCA IV PRN (21:20)
[2016-12-12] MEDS: PIPERACILLIN/TAZO 3.375 GM/DEX 50 ML IV SCH ×3 (02:44→13:33)
[2016-12-12] MEDS: D5W 1/2 NS W/ 20 KCl/L 1,000 ML IV SCH ×2 (06:48→18:40)
--- NOTE | 2016-12-12 08:49 | SOAPPROG ---
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 3 L O2. Continue IS and ambulation Cards - no hemodynamic instability. H/H down yesterday - recheck labs tomorrow GI - awaiting return of bowel function. Keep NG, possibly out this weekend. Ice chips ad marce. When NG out, advance diet slowly - Voiding spontaneously, UOP low, will continue to monitor Heme/ID - Lovenox. Zosyn and Fluconazole day 3/5. Spillage of enteric contents during surgery and on chemo Dispo - Continue hospital management. Seen with Dr. buck S: Pain is controlled, using pain medication more regularly. Ambulated 3x in halls yesterday O: Lying in bed, appears comfortable Lungs decreased at bases B Regular rate Few bowel sounds. less distended, soft, minimally tender. Dressing dry Objective: Vital Signs Temp Pulse Resp BP Pulse Ox 36.9 C 85 16 141/89 H 94 12/12/16 07:54 12/12/16 07:54 12/12/16 07:54 12/12/16 07:54 12/12/16 07:54 Laboratory Results 12/11/16 08:12 12/11/16 08:12 12/11/16 12/12/16 12/13/16 05:59 05:59 05:59 Intake Total 3019 4562.2 Output Total 600 1500 Balance 2419 3062.2 ICD10 Worksheet Patient Problems: Problems Problem Status Onset Myalgia Acute Neutropenic fever Acute
[2016-12-12] MEDS: FLUCONAZOLE/NaCl 100 ML IV SCH (08:50)
[2016-12-12] MEDS: ENOXAPARIN 40 MG/0.4 ML SYR SC SCH (08:51)
[2016-12-12] MEDS: PIPERACILLIN SODIUM/TAZOBACTAM 3.375 GM in D5W 50 ML IV SCH (20:20)
[2016-12-13] MEDS: HYDROmorphONE/DILAUDID 6 MG/30 ML PCA IV PRN (01:09)
[2016-12-13] MEDS: PIPERACILLIN SODIUM/TAZOBACTAM 3.375 GM in D5W 50 ML IV SCH ×4 (01:50→20:08)
[2016-12-13] MEDS: D5W 1/2 NS W/ 20 KCl/L 1,000 ML IV SCH ×2 (05:14→17:16)
[2016-12-13 05:45] LABS: % IMMATURE GRANULYOCYTES 0.7 % (0.0-1.1); ABSOLUTE IMMATURE GRANULOCYTES 0.04 10^3/uL (0.00-0.10); ADD DIFF? NO; ADD MORPH? NO; ADD SCAN? NO; ATYPICAL LYMPHOCYTE FLAG 0 (0-99); FRAGMENT RBC FLAG 0 (0-99); HEMATOCRIT 33.9 % (38.0-47.0); HEMOGLOBIN 10.8 g/dL (12.6-16.3); LEFT SHIFT FLG 70 (0-99); LIPEMIA HEMOLYSIS FLAG 80 (0-99); MEAN CELL HEMOGLOBIN 31.2 pg (27.9-34.1); MEAN CELL HEMOGLOBIN CONCENTR. 31.9 g/dL (32.4-36.7); MEAN PLATELET VOLUME 9.1 fL (8.7-11.7); PLATELET CLUMPS FLAG 10 (0-99); PLATELET COUNT 120 10^3/uL (150-400); RED BLOOD CELL COUNT 3.46 10^6/uL (4.18-5.33); RED CELL DISTRIBUTION WIDTH 14.4 % (11.5-15.2)
[2016-12-13 05:57] LABS: ANION GAP 10 mEq/L (8-16); CALCIUM 8.1 mg/dL (8.5-10.4); CARBON DIOXIDE 25 mEq/l (22-31); CHLORIDE 107 mEq/L (97-110); CREATININE 0.6 mg/dL (0.6-1.0); GLOMERULAR FILTRATION RATE > 60; GLUCOSE 93 mg/dL (70-100); POTASSIUM 3.8 mEq/L (3.5-5.2); SODIUM 142 mEq/L (134-144)
--- NOTE | 2016-12-13 07:43 | GOP ---
[f rep st] OPERATIVE REPORT DATE OF OPERATION: 12/09/2016 SURGEON: Rianna Salazar MD CUTTER MACHINE TENDER: NEIDA Rice ANESTHESIA: General. ANESTHESIOLOGIST: Grayson Lynn MD PREOPERATIVE DIAGNOSIS: Small-bowel obstruction. POSTOPERATIVE DIAGNOSIS: Small-bowel obstruction. PROCEDURE PERFORMED: Exploratory laparotomy with adhesiolysis, small-bowel resection, appendectomy. FINDINGS: Extensive adhesions and gross distortion of the bowel. SPECIMENS: Appendix and small bowel. ESTIMATED BLOOD LOSS: 75 cc. INDICATIONS: The patient is a 56-year-old woman with a history of endometrial carcinoma who is undergoing treatment. She received Avastin about 1 month ago. She had a small bowel obstruction that has never resolved completely. She had very limited p.o. intake in order to avoid readmission to the hospital. She had a small-bowel follow-through which showed a transition point at the terminal ilium. DESCRIPTION OF PROCEDURE: The patient was brought into the operating room, placed supine on the table, and general anesthesia was administered. Her abdomen was prepped and draped in the usual sterile fashion. I initially infiltrated an area in the left upper quadrant well away from her midline scar. I made an incision. I inserted the Veress needle. It passed the hanging drop test. I placed a 5 mm camera with a trocar at this site. There were no injuries from Veress needle placement. I explored her abdomen. I tilted her side to side on the table. There were obvious midline adhesions but I was unable to appreciate if the remaining bowel mobilized. Since there was such a large amount of adhesions, I elected to open. I initially used a lower midline incision. I dissected down through the subcutaneous tissues. I encountered old suture, which I removed. I divided the fascia and it was unclear if there bowel immediately underneath her peritoneum. I then extended her incision cephalad toward her xiphoid in order to gain a free working space. It became readily apparent that the bowel was adhesed to the midline incision. I performed over 3 hours of adhesiolysis in order to free the bowel from the midline incision and from each other. In the process of performing adhesiolysis, I made two small enterotomies which were repaired with 3-0 Vicryl. In general, the bowel was thickened and grossly distorted. I ultimately was able to identify the ligament of Treitz and followed the bowel back to the terminal ilium. There was 1 section of small bowel in her pelvis that was wrapped upon itself. I could not feel the lumen before it entered the terminal ilium. The terminal ilium was thoroughly decompressed. Off her cecum , her appendix was trapped in additional scar tissue. I was able to divide the attachments free. I then transected the base with a MARTHA 75 stapler. The mesoappendix was divided with the Harmonic Scalpel. I measured her small bowel and it seemed closer to 11 feet rather than the usual 20 feet. I am not sure if this was due to it being thickened. I, therefore, elected just to take the portion of small bowel that was folded back on itself. The point I selected on the terminal ilium was extremely soft and decompressed. I then selected a point proximally which was at the softest point I could find. I divided each limb of the bowel with a MARTHA 75. I then aligned the bowel on the antimesenteric borders. I created an enterotomy in each wound. There was spillage of bowel due to contents due to the dilation. It was contained with lap pads. I then placed a MARTHA 75 to create a [id number] functional end-to- end anastomosis. I closed the enterotomy with 3-0 Vicryl running followed by 3- 0 Vicryl pop-offs. I tested the anastomosis. There were no leaks noted. I used the Harmonic to divide the mesentery of the bowel that was to be passed off the field. I closed the mesenteric defect with 3-0 Vicryl. I then explored her remaining bowel. On inspection there were no leaks. I performed copious irrigation. I closed the fascia with #1 PDS. I irrigated the subcutaneous area. I closed the skin with hood. A sterile dressing was applied. She was awakened in the operating room, extubated, transferred to PACU in stable condition. /[id number]/MODL MTDD
--- NOTE | 2016-12-13 08:23 | SOAPPROG ---
SOAP Progress Note Assessment/Plan: Assessment: sp sb resection/ no flatus/ mildly distended/ afebrile/ no bms/ abd soft/ wound ok Plan:continue iv, npo, ng 12/13/16 08:21 Objective: Vital Signs Temp Pulse Resp BP Pulse Ox 36.4 C 87 17 149/87 H 91 L 12/13/16 06:30 12/13/16 06:30 12/13/16 06:30 12/13/16 06:30 12/13/16 06:30 Laboratory Results 12/13/16 05:13 12/13/16 05:13 12/12/16 12/13/16 12/14/16 05:59 05:59 06:59 Intake Total 4562.2 2315.6 Output Total 1500 1400 Balance 3062.2 915.6 ICD10 Worksheet Patient Problems: Problems Problem Status Onset Myalgia Acute Neutropenic fever Acute
[2016-12-13] MEDS: ENOXAPARIN 40 MG/0.4 ML SYR SC SCH (08:34)
[2016-12-13] MEDS: ACETAMINOPHEN 650 MG/20.3 ML UDCUP TUBE PRN ×2 (08:47→20:04)
[2016-12-13] MEDS: SCOPOLAMINE HYDROBROMIDE 1.5 MG PATCH TD SCH (08:47)
[2016-12-13] MEDS: FLUCONAZOLE/NaCl 100 ML IV SCH (09:27)
[2016-12-14] MEDS: PIPERACILLIN SODIUM/TAZOBACTAM 3.375 GM in D5W 50 ML IV SCH ×4 (01:51→20:54)
[2016-12-14] MEDS: HYDROmorphONE/DILAUDID 6 MG/30 ML PCA IV PRN (05:40)
[2016-12-14] MEDS: D5W 1/2 NS W/ 20 KCl/L 1,000 ML IV SCH (05:40)
[2016-12-14 06:15] LABS: % IMMATURE GRANULYOCYTES 0.9 % (0.0-1.1); ABSOLUTE IMMATURE GRANULOCYTES 0.05 10^3/uL (0.00-0.10); ADD DIFF? NO; ADD MORPH? NO; ADD SCAN? NO; ATYPICAL LYMPHOCYTE FLAG 80 (0-99); FRAGMENT RBC FLAG 0 (0-99); HEMATOCRIT 33.4 % (38.0-47.0); HEMOGLOBIN 10.7 g/dL (12.6-16.3); LEFT SHIFT FLG 20 (0-99); LIPEMIA HEMOLYSIS FLAG 80 (0-99); MEAN CELL VOLUME 96.8 fL (81.5-99.8); MEAN PLATELET VOLUME 9.1 fL (8.7-11.7); PLATELET CLUMPS FLAG 0 (0-99); PLATELET COUNT 121 10^3/uL (150-400); RED BLOOD CELL COUNT 3.45 10^6/uL (4.18-5.33); RED CELL DISTRIBUTION WIDTH 14.2 % (11.5-15.2)
[2016-12-14 06:44] LABS: ANION GAP 8 mEq/L (8-16); CALCIUM 7.9 mg/dL (8.5-10.4); CARBON DIOXIDE 23 mEq/l (22-31); CHLORIDE 106 mEq/L (97-110); CREATININE 0.4 mg/dL (0.6-1.0); GLOMERULAR FILTRATION RATE > 60; GLUCOSE 102 mg/dL (70-100); POTASSIUM 3.6 mEq/L (3.5-5.2); SODIUM 137 mEq/L (134-144)
[2016-12-14] MEDS: ENOXAPARIN 40 MG/0.4 ML SYR SC SCH (07:59)
[2016-12-14] MEDS: FLUCONAZOLE/NaCl 100 ML IV SCH (09:12)
[2016-12-14] MEDS ORDERED: BISACODYL 10 MG SUPP PR ONE (12:34)
--- NOTE | 2016-12-14 15:39 | SOAPPROG ---
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 Concerned Re: Fever overnight. Tm 38.5. Afebrile since. Inc clean. WBC's wnl. Lungs clear on exam. Cramer out. No dysuria. On Zosyn. If returns, consider CXR, UA. Could consider CT abd/pel also. Ileus. Still with high NG output. Hypoactive BS. No flatus. Continue NGT. Ambulating. IA dulcolax today. Add reglan. Seen and examined with Dr. Alaniz earlier today. S: not much pain. didn't think she had much of a fever, "only 99 I think." walking in hallway. sitting oob in chair. No flatus. O: alert, nad ng in place, mmm chest clear rrr abd sofly bloated, hypoactive BS, inc cdi, no erythema. 12/14/16 15:41 Objective: Vital Signs Temp Pulse Resp BP Pulse Ox 36.8 C 92 18 149/95 H 93 12/14/16 12:48 12/14/16 12:48 12/14/16 12:48 12/14/16 12:48 12/14/16 12:48 Laboratory Results 12/14/16 05:58 12/14/16 05:58 12/13/16 12/14/16 12/15/16 04:59 05:59 05:59 Intake Total Output Total 300 Balance -300 ICD10 Worksheet Patient Problems: Problems Problem Status Onset Myalgia Acute Neutropenic fever Acute
[2016-12-14] MEDS: METOCLOPRAMIDE 10 MG/2 ML VIAL IVP SCH ×2 (17:43→23:42)
[2016-12-15] MEDS: PIPERACILLIN SODIUM/TAZOBACTAM 3.375 GM in D5W 50 ML IV SCH ×2 (01:23→08:22)
[2016-12-15] MEDS: D5W 1/2 NS W/ 20 KCl/L 1,000 ML IV SCH ×2 (05:06→22:04)
[2016-12-15] MEDS: METOCLOPRAMIDE 10 MG/2 ML VIAL IVP SCH ×4 (05:53→23:51)
[2016-12-15] MEDS: HYDROmorphONE/DILAUDID 6 MG/30 ML PCA IV PRN (06:56)
[2016-12-15] MEDS: ENOXAPARIN 40 MG/0.4 ML SYR SC SCH (08:23)
[2016-12-15] MEDS: FLUCONAZOLE/NaCl 100 ML IV SCH (09:04)
--- NOTE | 2016-12-15 09:09 | SOAPPROG ---
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 Resp - Continue IS and ambulation Cards - acute blood loss anemia. H/H stable today and asymptomatic GI - +BM and passing flatus. NG clamp trial today Heme/ID - Lovenox. Zosyn and Fluconazole completed 5 day course. Spillage of enteric contents during surgery and on chemo Dispo - Continue hospital management, awaiting return of bowel function S: Nurse called me saying bleeding from midline incision. Pain when transitioning from sitting to standing. No dizziness or lightheadedness. Had a BM this morning and passing flatus. NG tube is making her throat very sore. " Did alot yesterday" O: Lying in bed, appears comfortable Hoarse voice No increased WOB, supplemental O2 Abd softly distended, nontender. Incision with min surrounding erythema ( reactive vs. early infection), no active drainage Objective: Vital Signs Temp Pulse Resp BP Pulse Ox 37.7 C 94 16 150/99 H 94 12/15/16 08:01 12/15/16 08:01 12/15/16 08:01 12/15/16 08:01 12/15/16 08:01 Laboratory Results 12/14/16 05:58 12/14/16 05:58 12/14/16 12/15/16 12/16/16 05:59 05:59 05:59 Intake Total 1513 1239 Output Total 3300 Balance -1787 1239 ICD10 Worksheet Patient Problems: Problems Problem Status Onset Myalgia Acute Neutropenic fever Acute
[2016-12-15] MEDS ORDERED: morphINE 10 MG/0.5 ML UDSYR PO PRN (10:50)
[2016-12-16] MEDS: METOCLOPRAMIDE 10 MG/2 ML VIAL IVP SCH ×3 (05:28→18:21)
[2016-12-16] MEDS: D5W 1/2 NS W/ 20 KCl/L 1,000 ML IV SCH ×2 (05:36→20:20)
[2016-12-16] MEDS: SCOPOLAMINE HYDROBROMIDE 1.5 MG PATCH TD SCH (08:46)
--- NOTE | 2016-12-16 10:13 | SOAPPROG ---
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 Resp - Continue IS and ambulation Cards - hypertensive, restart home meds GI - +NG out. Clear liquids as keaton Heme/ID - Lovenox. Zosyn and Fluconazole completed 5 day course. Spillage of enteric contents during surgery and on chemo Fat necrosis of midline incision - packed with 1/4" nugauze. will change to HFB tomorrow. No evidence of infection Dispo - Continue hospital management, awaiting full return of bowel function S: Feeling well. no nausea, vomiting or worsening distension after NG removed. Pain controlled O: Lying in bed, appears comfortable Hoarse voice Supplemental O2. CTAB decreased at bases RRR Hypoactive, softly distended, nontender. Midline incision with serosanguinous drainage from middle aspect. 4 hood removed, tunnels superiorly and inferiorly along entire length of incision. No surrounding erythema. Packed with 1/4" nugauze Objective: Vital Signs Temp Pulse Resp BP Pulse Ox 37.0 C 84 18 140/89 H 94 12/16/16 08:13 12/16/16 09:43 12/16/16 08:13 12/16/16 09:43 12/16/16 09:43 Laboratory Results 12/14/16 05:58 12/14/16 05:58 12/15/16 12/16/16 12/17/16 05:59 05:59 05:59 Intake Total 1513 2820 Output Total 3300 1235 200 Balance -1787 1585 -200 ICD10 Worksheet Patient Problems: Problems Problem Status Onset Myalgia Acute Neutropenic fever Acute
[2016-12-16] MEDS: ENOXAPARIN 40 MG/0.4 ML SYR SC SCH (11:26)
[2016-12-16] MEDS: ENALAPRILAT DIHYDRATE 1.25 MG/ML VIAL IVP PRN ×2 (12:18→20:10)
[2016-12-16] MEDS: HYDROmorphONE/DILAUDID 6 MG/30 ML PCA IV PRN (13:59)
[2016-12-16] MEDS: ACETAMINOPHEN 325 MG TAB PO PRN (20:14)
[2016-12-17] MEDS: METOCLOPRAMIDE 10 MG/2 ML VIAL IVP SCH ×5 (00:05→23:54)
[2016-12-17] MEDS: ENALAPRILAT DIHYDRATE 1.25 MG/ML VIAL IVP PRN ×2 (04:57→13:10)
[2016-12-17] MEDS: ACETAMINOPHEN 325 MG TAB PO PRN (04:59)
[2016-12-17] MEDS: ENOXAPARIN 40 MG/0.4 ML SYR SC SCH (09:06)
--- NOTE | 2016-12-17 09:33 | SOAPPROG ---
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 Resp - Continue IS and ambulation Cards - hypertensive, continue home meds GI - Minimal nausea since NG removed. Clear liquids as keaton. Consider TPN tomorrow Heme/ID - Lovenox. Zosyn and Fluconazole completed 5 day course. Spillage of enteric contents during surgery and on chemo Fat necrosis of midline incision - packed with hydrofera blue - change MWF, change secondary dressing PRN Dispo - Continue hospital management, awaiting full return of bowel function. seen with dr. buck S: Feeling well. episode of nausea this morning that resolved quickly. no vomiting or worsening distension. Pain controlled O: Lying in bed, appears comfortable Hoarse voice Supplemental O2. CTAB, improved breath sounds B bases RRR + bowels sounds, softly distended, nontender. Midline incision repacked with hydrofera blue. no evidence of infection Objective: Vital Signs Temp Pulse Resp BP Pulse Ox 36.7 C 100 18 142/84 H 90 L 12/17/16 08:26 12/17/16 08:26 12/17/16 08:26 12/17/16 08:26 12/17/16 08:26 Laboratory Results 12/14/16 05:58 12/14/16 05:58 12/16/16 12/17/16 12/18/16 05:59 05:59 05:59 Intake Total 2820 1611.4 Output Total 1235 1100 Balance 1585 511.4 ICD10 Worksheet Patient Problems: Problems Problem Status Onset Myalgia Acute Neutropenic fever Acute
[2016-12-17] MEDS: HYDROmorphONE/DILAUDID 6 MG/30 ML PCA IV PRN (10:03)
[2016-12-17] MEDS: D5W 1/2 NS W/ 20 KCl/L 1,000 ML IV SCH (11:59)
[2016-12-18] MEDS: METOCLOPRAMIDE 10 MG/2 ML VIAL IVP SCH ×4 (04:49→23:50)
[2016-12-18 05:03] LABS: % IMMATURE GRANULYOCYTES 1.6 % (0.0-1.1); ABSOLUTE IMMATURE GRANULOCYTES 0.14 10^3/uL (0.00-0.10); ABSOLUTE NRBC COUNT 0.02 10^3/uL (0-0.01); ADD DIFF? NO; ADD MORPH? NO; ADD SCAN? NO; ATYPICAL LYMPHOCYTE FLAG 50 (0-99); FRAGMENT RBC FLAG 0 (0-99); HEMATOCRIT 31.1 % (38.0-47.0); HEMOGLOBIN 10.1 g/dL (12.6-16.3); LEFT SHIFT FLG 40 (0-99); LIPEMIA HEMOLYSIS FLAG 80 (0-99); MEAN CELL HEMOGLOBIN 31.2 pg (27.9-34.1); MEAN CELL HEMOGLOBIN CONCENTR. 32.5 g/dL (32.4-36.7); MEAN PLATELET VOLUME 9.4 fL (8.7-11.7); NRBC-AUTO% 0.2 % (0.0-0.2); PLATELET CLUMPS FLAG 0 (0-99); PLATELET COUNT 130 10^3/uL (150-400); RED BLOOD CELL COUNT 3.24 10^6/uL (4.18-5.33); RED CELL DISTRIBUTION WIDTH 14.3 % (11.5-15.2)
[2016-12-18 05:13] LABS: INR 1.13 (0.83-1.16); PROTIME(PATIENT) 14.4 SEC (12.0-15.0)
[2016-12-18 05:15] LABS: ALANINE AMINOTRANSFERASE 35 IU/L (9-52); ALBUMIN 2.2 g/dL (3.5-5.0); ALKALINE PHOSPHATASE 201 IU/L (38-126); ANION GAP 9 mEq/L (8-16); ASPARTATE AMINOTRANSFERASE 29 IU/L (14-46); CALCIUM 7.7 mg/dL (8.5-10.4); CARBON DIOXIDE 23 mEq/l (22-31); CHLORIDE 102 mEq/L (97-110); CREATININE 0.4 mg/dL (0.6-1.0); GLOMERULAR FILTRATION RATE > 60; GLUCOSE 101 mg/dL (70-100); MAGNESIUM 1.7 mg/dL (1.6-2.3); POTASSIUM 3.6 mEq/L (3.5-5.2); SODIUM 134 mEq/L (134-144); TOTAL PROTEIN 4.9 g/dL (6.3-8.2)
[2016-12-18] MEDS ORDERED: BISACODYL 10 MG SUPP PR PRN (06:59)
[2016-12-18] MEDS ORDERED: LACTULOSE 20 GM/30 ML UDCUP PO PRN (06:59)
[2016-12-18] MEDS ORDERED: POLYETHYLENE GLYCOL 3350 17 GM PKT PO PRN (06:59)
[2016-12-18] MEDS ORDERED: MAGNESIUM HYDROXIDE 30 ML UDCUP PO PRN (06:59)
[2016-12-18] MEDS: SENNOSIDES/DOCUSATE SODIUM TAB PO SCH ×2 (08:08→21:38)
[2016-12-18] MEDS: ENOXAPARIN 40 MG/0.4 ML SYR SC SCH (08:08)
[2016-12-18] MEDS ORDERED: IOPAMIDOL (ISOVUE-300) 100 ML BTL IV ONE (10:00)
--- NOTE | 2016-12-18 10:17 | SOAPPROG ---
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 3 L O2 Cards - no hemodynamic instability. Restarted home BP meds. GI - some bowel movements but not consistent return of bowel function. Expect about a week. Bowel was very edematous and dilated. clears but not consuming much. Wound leaking. getting ct abdomen and pelvis -Cramer out Heme/ID - Lovenox. Zosyn and Fluconazole had one week. Spillage of enteric contents during surgery and on chemo Dispo - Continue hospital management S: Pain is tolerated. Nausea controlled. O: Lying in bed, appears comfortable Lungs CTAB Regular rate Hypoactive bowel sounds. distended. significant drainage from midline wound. No obvious breach into peritoneum Plan: 12/11/16 10:12 12/18/16 10:14 Objective: Vital Signs Temp Pulse Resp BP Pulse Ox 37.2 C 96 16 143/89 H 92 12/18/16 07:40 12/18/16 10:09 12/18/16 10:09 12/18/16 10:09 12/18/16 10:09 Laboratory Results 12/18/16 04:45 12/18/16 04:45 12/17/16 12/18/16 12/19/16 05:59 05:59 05:59 Intake Total 1611.4 1815.8 Output Total 1100 800 200 Balance 511.4 1015.8 -200 PT 14.4 SEC (12.0-15.0) 12/18/16 04:45 INR 1.13 (0.83-1.16) 12/18/16 04:45 ICD10 Worksheet Patient Problems: Problems Problem Status Onset Myalgia Acute Neutropenic fever Acute
[2016-12-18] MEDS ORDERED: D10W 1,000 ML IV PRN (10:31)
[2016-12-18] MEDS: HYDROmorphONE/DILAUDID 6 MG/30 ML PCA IV PRN (12:52)
[2016-12-18] MEDS: ENALAPRILAT DIHYDRATE 1.25 MG/ML VIAL IVP PRN (18:16)
[2016-12-18 21:12] LABS: % IMMATURE GRANULYOCYTES 1.5 % (0.0-1.1); ABSOLUTE IMMATURE GRANULOCYTES 0.13 10^3/uL (0.00-0.10); ADD DIFF? NO; ADD MORPH? NO; ADD SCAN? NO; ATYPICAL LYMPHOCYTE FLAG 80 (0-99); FRAGMENT RBC FLAG 30 (0-99); HEMATOCRIT 31.7 % (38.0-47.0); HEMOGLOBIN 10.2 g/dL (12.6-16.3); LEFT SHIFT FLG 40 (0-99); LIPEMIA HEMOLYSIS FLAG 80 (0-99); MEAN CELL HEMOGLOBIN 30.9 pg (27.9-34.1); MEAN CELL HEMOGLOBIN CONCENTR. 32.2 g/dL (32.4-36.7); MEAN CELL VOLUME 96.1 fL (81.5-99.8); MEAN PLATELET VOLUME 9.6 fL (8.7-11.7); PLATELET CLUMPS FLAG 0 (0-99); PLATELET COUNT 166 10^3/uL (150-400); RED CELL DISTRIBUTION WIDTH 14.2 % (11.5-15.2)
[2016-12-18 21:13] LABS: INR 1.15 (0.83-1.16); PROTIME(PATIENT) 14.7 SEC (12.0-15.0)
[2016-12-18 21:14] LABS: APTT 36.1 SEC (23.0-38.0)
[2016-12-18 21:20] LABS: ALANINE AMINOTRANSFERASE 32 IU/L (9-52); ALBUMIN 2.3 g/dL (3.5-5.0); ALKALINE PHOSPHATASE 206 IU/L (38-126); ANION GAP 9 mEq/L (8-16); ASPARTATE AMINOTRANSFERASE 28 IU/L (14-46); BILIRUBIN,TOTAL 1.1 mg/dL (0.1-1.4); CALCIUM 7.8 mg/dL (8.5-10.4); CARBON DIOXIDE 25 mEq/l (22-31); CHLORIDE 99 mEq/L (97-110); CREATININE 0.4 mg/dL (0.6-1.0); GLOMERULAR FILTRATION RATE > 60; GLUCOSE 109 mg/dL (70-100); MAGNESIUM 1.8 mg/dL (1.6-2.3); POTASSIUM 3.7 mEq/L (3.5-5.2); SODIUM 133 mEq/L (134-144); TOTAL PROTEIN 4.8 g/dL (6.3-8.2); TRIGLYCERIDE 141 mg/dL (35-135)
[2016-12-18] MEDS: TPN 1 EA BAG IV SCH (21:38)
[2016-12-19] MEDS: METOCLOPRAMIDE 10 MG/2 ML VIAL IVP SCH ×4 (06:05→23:58)
[2016-12-19 06:24] LABS: % IMMATURE GRANULYOCYTES 1.5 % (0.0-1.1); ABSOLUTE IMMATURE GRANULOCYTES 0.12 10^3/uL (0.00-0.10); ADD DIFF? NO; ADD MORPH? NO; ADD SCAN? NO; ATYPICAL LYMPHOCYTE FLAG 40 (0-99); FRAGMENT RBC FLAG 0 (0-99); HEMATOCRIT 31.3 % (38.0-47.0); LEFT SHIFT FLG 30 (0-99); LIPEMIA HEMOLYSIS FLAG 80 (0-99); MEAN CELL HEMOGLOBIN CONCENTR. 31.9 g/dL (32.4-36.7); MEAN CELL VOLUME 96.9 fL (81.5-99.8); MEAN PLATELET VOLUME 9.4 fL (8.7-11.7); PLATELET CLUMPS FLAG 30 (0-99); PLATELET COUNT 140 10^3/uL (150-400); RED BLOOD CELL COUNT 3.23 10^6/uL (4.18-5.33); RED CELL DISTRIBUTION WIDTH 14.1 % (11.5-15.2)
[2016-12-19 06:31] LABS: INR 1.15 (0.83-1.16); PROTIME(PATIENT) 14.7 SEC (12.0-15.0)
[2016-12-19 06:32] LABS: APTT 35.9 SEC (23.0-38.0)
[2016-12-19 06:50] LABS: ANION GAP 8 mEq/L (8-16); CARBON DIOXIDE 27 mEq/l (22-31); CHLORIDE 101 mEq/L (97-110); CREATININE 0.4 mg/dL (0.6-1.0); GLOMERULAR FILTRATION RATE > 60; GLUCOSE 111 mg/dL (70-100); POTASSIUM 3.5 mEq/L (3.5-5.2); SODIUM 136 mEq/L (134-144)
[2016-12-19 06:51] LABS: ALANINE AMINOTRANSFERASE 31 IU/L (9-52); ALBUMIN 2.3 g/dL (3.5-5.0); ALKALINE PHOSPHATASE 192 IU/L (38-126); ASPARTATE AMINOTRANSFERASE 20 IU/L (14-46); BILIRUBIN,TOTAL 0.7 mg/dL (0.1-1.4); CALCIUM 7.8 mg/dL (8.5-10.4); MAGNESIUM 1.9 mg/dL (1.6-2.3); TOTAL PROTEIN 4.7 g/dL (6.3-8.2)
[2016-12-19] MEDS: SENNOSIDES/DOCUSATE SODIUM TAB PO SCH ×2 (09:06→21:45)
[2016-12-19] MEDS: ENOXAPARIN 40 MG/0.4 ML SYR SC SCH (09:06)
[2016-12-19] MEDS: SCOPOLAMINE HYDROBROMIDE 1.5 MG PATCH TD SCH (09:06)
--- NOTE | 2016-12-19 10:08 | SOAPPROG ---
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 Resp - Continue IS and ambulation Cards - hypertensive, continue home meds GI - Clear liquids. On TPN Heme/ID - Lovenox. Zosyn and Fluconazole completed 5 day course. Spillage of enteric contents during surgery and on chemo Increased drainage from midline incision. 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 Changed dressing to plain gauze - we will return between cases to change dressing later this morning. Wound culture sent S: Increased drainage from wound causing leaking and frequent gown/bedding changes. +Bowel movement. Pain controlled O: Lying in bed, appears comfortable Hoarse voice Supplemental O2. No increased WOB + bowels sounds, softly distended, nontender. Removed more hood from middle aspect of midline incision. Greenish yellow fluid concerning for bowel contents , but cleared without accumulation after irrigation. Packed with plain gauze, dressed with ABD Objective: Vital Signs Temp Pulse Resp BP Pulse Ox 37.2 C 98 16 144/92 H 97 12/19/16 08:00 12/19/16 08:00 12/19/16 08:00 12/19/16 08:00 12/19/16 08:00 Laboratory Results 12/19/16 06:00 12/19/16 06:00 12/18/16 12/19/16 12/20/16 05:59 05:59 05:59 Intake Total 1815.8 1308 Output Total 800 1201 Balance 1015.8 107 PT 14.7 SEC (12.0-15.0) 12/19/16 06:00 INR 1.15 (0.83-1.16) 12/19/16 06:00 ICD10 Worksheet Patient Problems: Problems Problem Status Onset Myalgia Acute Neutropenic fever Acute
[2016-12-19] MEDS: HYDROmorphONE/DILAUDID 6 MG/30 ML PCA IV PRN (20:29)
[2016-12-19] MEDS: TPN 1 EA BAG IV SCH (21:44)
[2016-12-20 05:54] LABS: % IMMATURE GRANULYOCYTES 0.9 % (0.0-1.1); ABSOLUTE IMMATURE GRANULOCYTES 0.07 10^3/uL (0.00-0.10); ADD DIFF? NO; ADD MORPH? NO; ADD SCAN? NO; ATYPICAL LYMPHOCYTE FLAG 50 (0-99); FRAGMENT RBC FLAG 0 (0-99); HEMATOCRIT 29.6 % (38.0-47.0); HEMOGLOBIN 9.5 g/dL (12.6-16.3); LEFT SHIFT FLG 10 (0-99); LIPEMIA HEMOLYSIS FLAG 80 (0-99); MEAN CELL HEMOGLOBIN 30.4 pg (27.9-34.1); MEAN CELL HEMOGLOBIN CONCENTR. 32.1 g/dL (32.4-36.7); MEAN CELL VOLUME 94.9 fL (81.5-99.8); MEAN PLATELET VOLUME 9.6 fL (8.7-11.7); PLATELET CLUMPS FLAG 10 (0-99); PLATELET COUNT 136 10^3/uL (150-400); RED BLOOD CELL COUNT 3.12 10^6/uL (4.18-5.33)
[2016-12-20 06:03] LABS: INR 1.07 (0.83-1.16); PROTIME(PATIENT) 13.8 SEC (12.0-15.0)
[2016-12-20 06:04] LABS: APTT 34.1 SEC (23.0-38.0)
[2016-12-20 06:17] LABS: ALANINE AMINOTRANSFERASE 28 IU/L (9-52); ALBUMIN 2.1 g/dL (3.5-5.0); ALKALINE PHOSPHATASE 218 IU/L (38-126); ANION GAP 10 mEq/L (8-16); ASPARTATE AMINOTRANSFERASE 22 IU/L (14-46); BILIRUBIN,TOTAL 0.5 mg/dL (0.1-1.4); CALCIUM 7.6 mg/dL (8.5-10.4); CARBON DIOXIDE 26 mEq/l (22-31); CHLORIDE 101 mEq/L (97-110); CREATININE 0.4 mg/dL (0.6-1.0); GLOMERULAR FILTRATION RATE > 60; GLUCOSE 107 mg/dL (70-100); MAGNESIUM 1.9 mg/dL (1.6-2.3); POTASSIUM 3.6 mEq/L (3.5-5.2); SODIUM 137 mEq/L (134-144); TOTAL PROTEIN 4.5 g/dL (6.3-8.2)
[2016-12-20] MEDS: METOCLOPRAMIDE 10 MG/2 ML VIAL IVP SCH ×3 (06:52→18:30)
[2016-12-20] MEDS: ENOXAPARIN 40 MG/0.4 ML SYR SC SCH (09:38)
[2016-12-20] MEDS: SENNOSIDES/DOCUSATE SODIUM TAB PO SCH ×2 (12:07→20:10)
[2016-12-20] MEDS: PIPERACILLIN/TAZO 3.375 GM/DEX 50 ML IV SCH ×2 (18:25→23:50)
[2016-12-20] MEDS: HYDROmorphONE/DILAUDID 6 MG/30 ML PCA IV PRN (20:08)
[2016-12-20] MEDS: ACETAMINOPHEN 325 MG TAB PO PRN (20:10)
--- NOTE | 2016-12-20 21:03 | SOAPPROG ---
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 Restarted home BP meds. GI - diarrhea and some gas. CT with signs of ileus. Fluid in abdomen but not a discrete abscess or a leak. I opened the incision and have been monitoring for a fistula. Continue TPN and clears, Heme/ID - Lovenox. Zosyn and Fluconazole had one week. Restart Zosyn due to culture with GNR. Spillage of enteric contents during surgery and on chemo Dispo - Continue hospital management S: Pain is tolerated. Nausea controlled. Leaking from midline wound when ambulating. O: Lying in bed, appears comfortable Lungs CTAB Regular rate Bowel sounds present. Less distended. significant drainage from midline wound. No obvious breach into peritoneum. Gauze with slight yellow stain. No gross enteric contents Plan: 12/11/16 10:12 12/18/16 10:14 12/20/16 21:01 Objective: Vital Signs Temp Pulse Resp BP Pulse Ox 37.8 C 96 16 146/83 H 91 L 12/20/16 19:45 12/20/16 19:45 12/20/16 19:45 12/20/16 19:45 12/20/16 19:45 Microbiology 12/19/16 09:00 Gram Stain - Final Abdomen - Swab Laboratory Results 12/20/16 05:25 12/20/16 05:25 12/19/16 12/20/16 12/21/16 05:59 05:59 05:59 Intake Total 1308 2660.6 Output Total 1201 700 300 Balance 107 1960.6 -300 PT 13.8 SEC (12.0-15.0) 12/20/16 05:25 INR 1.07 (0.83-1.16) 12/20/16 05:25 ICD10 Worksheet Patient Problems: Problems Problem Status Onset Myalgia Acute Neutropenic fever Acute
[2016-12-20] MEDS: TPN 1 EA BAG IV SCH (21:35)
[2016-12-21] MEDS: METOCLOPRAMIDE 10 MG/2 ML VIAL IVP SCH ×4 (01:10→18:49)
[2016-12-21] MEDS: ACETAMINOPHEN 325 MG TAB PO PRN ×2 (04:22→18:20)
[2016-12-21 04:50] LABS: % IMMATURE GRANULYOCYTES 1.3 % (0.0-1.1); ABSOLUTE IMMATURE GRANULOCYTES 0.09 10^3/uL (0.00-0.10); ABSOLUTE NRBC COUNT 0.03 10^3/uL (0-0.01); ADD DIFF? NO; ADD MORPH? NO; ADD SCAN? NO; ATYPICAL LYMPHOCYTE FLAG 70 (0-99); FRAGMENT RBC FLAG 0 (0-99); HEMATOCRIT 29.9 % (38.0-47.0); HEMOGLOBIN 9.7 g/dL (12.6-16.3); LEFT SHIFT FLG 10 (0-99); LIPEMIA HEMOLYSIS FLAG 80 (0-99); MEAN CELL HEMOGLOBIN 31.2 pg (27.9-34.1); MEAN CELL HEMOGLOBIN CONCENTR. 32.4 g/dL (32.4-36.7); MEAN CELL VOLUME 96.1 fL (81.5-99.8); MEAN PLATELET VOLUME 9.5 fL (8.7-11.7); NRBC-AUTO% 0.4 % (0.0-0.2); PLATELET CLUMPS FLAG 0 (0-99); PLATELET COUNT 134 10^3/uL (150-400); RED BLOOD CELL COUNT 3.11 10^6/uL (4.18-5.33); RED CELL DISTRIBUTION WIDTH 14.2 % (11.5-15.2)
[2016-12-21 04:57] LABS: APTT 32.5 SEC (23.0-38.0); INR 1.04 (0.83-1.16); PROTIME(PATIENT) 13.5 SEC (12.0-15.0)
[2016-12-21] MEDS: PIPERACILLIN/TAZO 3.375 GM/DEX 50 ML IV SCH (05:55)
[2016-12-21 06:16] LABS: ALANINE AMINOTRANSFERASE 34 IU/L (9-52); ALBUMIN 2.2 g/dL (3.5-5.0); ALKALINE PHOSPHATASE 284 IU/L (38-126); ANION GAP 7 mEq/L (8-16); ASPARTATE AMINOTRANSFERASE 41 IU/L (14-46); BILIRUBIN,TOTAL 0.7 mg/dL (0.1-1.4); CALCIUM 7.7 mg/dL (8.5-10.4); CARBON DIOXIDE 26 mEq/l (22-31); CHLORIDE 103 mEq/L (97-110); CREATININE 0.4 mg/dL (0.6-1.0); GLOMERULAR FILTRATION RATE > 60; GLUCOSE 110 mg/dL (70-100); MAGNESIUM 1.9 mg/dL (1.6-2.3); POTASSIUM 4.1 mEq/L (3.5-5.2); SODIUM 136 mEq/L (134-144); TOTAL PROTEIN 4.8 g/dL (6.3-8.2)
--- NOTE | 2016-12-21 08:41 | SOAPPROG ---
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 Restarted home BP meds. GI - diarrhea and some gas. CT with signs of ileus. Fluid in abdomen but not a discrete abscess or a leak. I opened the incision and have been monitoring for a fistula. Continue TPN and clears, CT with po contrast tomorrow Heme/ID - Lovenox. Zosyn and Fluconazole had one week. Restart Zosyn due to culture with klebsiella. Spillage of enteric contents during surgery and on chemo Dispo - Continue hospital management S: Pain is tolerated. Nausea controlled. Still gas and diarrhea Leaking from midline wound O: Lying in bed, appears comfortable Lungs CTAB Regular rate Bowel sounds present. Remains distended. significant drainage from midline wound. No obvious breach into peritoneum. Gauze with slight yellow stain. No gross enteric contents Plan: 12/11/16 10:12 12/18/16 10:14 12/20/16 21:01 12/21/16 08:40 Objective: Vital Signs Temp Pulse Resp BP Pulse Ox 37.8 C 99 16 143/81 H 91 L 12/21/16 05:48 12/21/16 05:48 12/21/16 05:48 12/21/16 05:48 12/21/16 05:48 Microbiology 12/19/16 09:00 Gram Stain - Final Abdomen - Swab Wound Culture - Final Klebsiella Pneumoniae Ssp Pneu Laboratory Results 12/21/16 04:30 12/21/16 04:30 12/20/16 12/21/16 12/22/16 05:59 05:59 05:59 Intake Total 2660.6 1977.2 Output Total 700 2000 Balance 1960.6 -22.8 PT 13.5 SEC (12.0-15.0) 12/21/16 04:30 INR 1.04 (0.83-1.16) 12/21/16 04:30 ICD10 Worksheet Patient Problems: Problems Problem Status Onset Myalgia Acute Neutropenic fever Acute
[2016-12-21] MEDS: ENOXAPARIN 40 MG/0.4 ML SYR SC SCH (08:59)
[2016-12-21] MEDS: PIPERACILLIN SODIUM/TAZOBACTAM 3.375 GM in D5W 50 ML IV SCH ×2 (12:23→18:20)
[2016-12-21] MEDS: SENNOSIDES/DOCUSATE SODIUM TAB PO SCH ×2 (13:38→21:09)
[2016-12-21] MEDS: TPN 1 EA BAG IV SCH (21:21)
[2016-12-22] MEDS: PIPERACILLIN SODIUM/TAZOBACTAM 3.375 GM in D5W 50 ML IV SCH ×4 (00:15→17:51)
[2016-12-22] MEDS: METOCLOPRAMIDE 10 MG/2 ML VIAL IVP SCH ×4 (00:17→17:51)
[2016-12-22] MEDS: HYDROmorphONE/DILAUDID 6 MG/30 ML PCA IV PRN (03:25)
[2016-12-22 05:19] LABS: ABSOLUTE IMMATURE GRANULOCYTES 0.06 10^3/uL (0.00-0.10); ADD DIFF? NO; ADD MORPH? NO; ADD SCAN? NO; ATYPICAL LYMPHOCYTE FLAG 90 (0-99); FRAGMENT RBC FLAG 0 (0-99); HEMATOCRIT 29.3 % (38.0-47.0); HEMOGLOBIN 9.4 g/dL (12.6-16.3); LEFT SHIFT FLG 20 (0-99); LIPEMIA HEMOLYSIS FLAG 80 (0-99); MEAN CELL HEMOGLOBIN 30.4 pg (27.9-34.1); MEAN CELL HEMOGLOBIN CONCENTR. 32.1 g/dL (32.4-36.7); MEAN CELL VOLUME 94.8 fL (81.5-99.8); MEAN PLATELET VOLUME 9.5 fL (8.7-11.7); PLATELET CLUMPS FLAG 0 (0-99); PLATELET COUNT 133 10^3/uL (150-400); RED BLOOD CELL COUNT 3.09 10^6/uL (4.18-5.33); RED CELL DISTRIBUTION WIDTH 14.2 % (11.5-15.2)
[2016-12-22 05:32] LABS: APTT 35.4 SEC (23.0-38.0); INR 1.07 (0.83-1.16); PROTIME(PATIENT) 13.8 SEC (12.0-15.0)
[2016-12-22 05:39] LABS: ALANINE AMINOTRANSFERASE 36 IU/L (9-52); ALBUMIN 2.1 g/dL (3.5-5.0); ALKALINE PHOSPHATASE 265 IU/L (38-126); ANION GAP 9 mEq/L (8-16); ASPARTATE AMINOTRANSFERASE 38 IU/L (14-46); BILIRUBIN,TOTAL 0.6 mg/dL (0.1-1.4); CALCIUM 7.6 mg/dL (8.5-10.4); CARBON DIOXIDE 22 mEq/l (22-31); CHLORIDE 103 mEq/L (97-110); CREATININE 0.4 mg/dL (0.6-1.0); GLOMERULAR FILTRATION RATE > 60; GLUCOSE 113 mg/dL (70-100); MAGNESIUM 1.8 mg/dL (1.6-2.3); SODIUM 134 mEq/L (134-144); TOTAL PROTEIN 4.8 g/dL (6.3-8.2); TRIGLYCERIDE 145 mg/dL (35-135)
[2016-12-22] MEDS: ENOXAPARIN 40 MG/0.4 ML SYR SC SCH (08:14)
[2016-12-22] MEDS: SENNOSIDES/DOCUSATE SODIUM TAB PO SCH ×2 (08:15→21:01)
[2016-12-22] MEDS: SCOPOLAMINE HYDROBROMIDE 1.5 MG PATCH TD SCH (08:15)
--- NOTE | 2016-12-22 12:28 | SOAPPROG ---
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 Restarted home BP meds. GI - diarrhea and some gas. Repeat CT today to evaluate for fistula. TPN and clears. Heme/ID - Lovenox. Zosyn and Fluconazole had one week. Restart Zosyn due to culture with klebsiella. Spillage of enteric contents during surgery and on chemo Dispo - Continue hospital management S: Pain is controlled with GLUE SPRAYER. No nausea. Passing flatus and having BMs. O: Lying in bed, appears comfortable Lungs CTAB Regular rate Bowel sounds present. Softly distended. significant yellowish drainage from central aspect of midline wound. No gross enteric contents Objective: Vital Signs Temp Pulse Resp BP Pulse Ox 37.3 C 98 18 145/86 H 94 12/22/16 08:00 12/22/16 08:00 12/22/16 08:00 12/22/16 08:00 12/22/16 08:00 Microbiology 12/19/16 09:00 Gram Stain - Final Abdomen - Swab Wound Culture - Final Klebsiella Pneumoniae Ssp Pneu Laboratory Results 12/22/16 04:30 12/22/16 04:30 12/21/16 12/22/16 12/23/16 05:59 05:59 05:59 Intake Total 1977.2 550 Output Total 1999 2800 Balance -22.8 -2250 PT 13.8 SEC (12.0-15.0) 12/22/16 04:30 INR 1.07 (0.83-1.16) 12/22/16 04:30 ICD10 Worksheet Patient Problems: Problems Problem Status Onset Myalgia Acute Neutropenic fever Acute
[2016-12-22] MEDS ORDERED: IOPAMIDOL (ISOVUE-300) 100 ML BTL IV ONE (12:47)
[2016-12-22] MEDS: TPN 1 EA BAG IV SCH (21:01)
[2016-12-23] MEDS: PIPERACILLIN SODIUM/TAZOBACTAM 3.375 GM in D5W 50 ML IV SCH ×5 (00:24→23:24)
[2016-12-23] MEDS: METOCLOPRAMIDE 10 MG/2 ML VIAL IVP SCH ×4 (00:44→17:09)
[2016-12-23] MEDS: SENNOSIDES/DOCUSATE SODIUM TAB PO SCH ×2 (08:30→20:52)
[2016-12-23] MEDS: ENOXAPARIN 40 MG/0.4 ML SYR SC SCH (08:30)
[2016-12-23] MEDS: HYDROmorphONE/DILAUDID 6 MG/30 ML PCA IV PRN (17:25)
[2016-12-23] MEDS: TPN 1 EA BAG IV SCH (20:51)
[2016-12-24] MEDS: METOCLOPRAMIDE 10 MG/2 ML VIAL IVP SCH ×4 (00:50→18:55)
[2016-12-24] MEDS: PIPERACILLIN SODIUM/TAZOBACTAM 3.375 GM in D5W 50 ML IV SCH ×4 (05:23→23:20)
[2016-12-24 05:51] LABS: ANION GAP 10 mEq/L (8-16); CALCIUM 7.8 mg/dL (8.5-10.4); CARBON DIOXIDE 21 mEq/l (22-31); CHLORIDE 104 mEq/L (97-110); CREATININE 0.4 mg/dL (0.6-1.0); GLOMERULAR FILTRATION RATE > 60; GLUCOSE 122 mg/dL (70-100); POTASSIUM 4.6 mEq/L (3.5-5.2); SODIUM 135 mEq/L (134-144)
[2016-12-24] MEDS: ONDANSETRON 4 MG/2 ML VIAL IVP PRN (08:31)
[2016-12-24] MEDS: ENOXAPARIN 40 MG/0.4 ML SYR SC SCH (10:49)
[2016-12-24] MEDS: SENNOSIDES/DOCUSATE SODIUM TAB PO SCH ×2 (12:31→20:32)
--- NOTE | 2016-12-24 14:15 | SOAPPROG ---
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 Restarted home BP meds. GI - having BMs and passing flatus. Concern for fistula although none obviously visualized. Will treat as a fistula. TPN with sips/chips. Heme/ID - Lovenox. Zosyn and Fluconazole x1 week. Restart Zosyn due to culture with klebsiella. Spillage of enteric contents during surgery and on chemo trim operator following Dispo - Continue hospital management S: Pain is controlled with DYNAMITE SHOOTER. One episode of nausea this morning which resolved with Zofran. Passing flatus and having BMs. Increased green drainage from wound O: Lying in bed, appears comfortable Lungs CTAB Regular rate Bowel sounds present. Soft, nondistended significant yellowish-green drainage from central aspect of midline wound. No obvious fistula Objective: Vital Signs Temp Pulse Resp BP Pulse Ox 36.9 C 100 16 142/89 H 91 L 12/24/16 12:00 12/24/16 12:00 12/24/16 12:00 12/24/16 12:00 12/24/16 12:00 Laboratory Results 12/22/16 04:30 12/24/16 05:15 12/23/16 12/24/16 12/25/16 05:59 05:59 05:59 Intake Total 3010.6 4112 Output Total 2100 1100 Balance 910.6 3012 PT 13.8 SEC (12.0-15.0) 12/22/16 04:30 INR 1.07 (0.83-1.16) 12/22/16 04:30 ICD10 Worksheet Patient Problems: Problems Problem Status Onset Myalgia Acute Neutropenic fever Acute
[2016-12-24] MEDS ORDERED: morphINE 10 MG/0.5 ML UDSYR PO PRN (15:50)
--- NOTE | 2016-12-24 16:06 | WOCRNPDOC ---
WOCRN Advanced Assessment Note - Skin Integrity Problem, Advanced Assess Medial Abdomen Surgical Wound/Incision Dressing Type: ABD Pad, Gauze Dressing Description: Saturated Closure Description: Diane (intact both proximal and distal to wound) Exudate Amount: Moderate Exudate Color: Yellow, Green Exudate Characteristic(s): Liquid Integumentary Issue Intervention: Dressing Changed Neris Wound Tissue: Intact Neris Wound Swelling: None Wound Bed Color: Red, Yellow Wound Bed Constitution: Granulation Tissue, Adhered Slough (in wound base; stringy) Site Odor: Fecal Site Measurement - Head-to-Toe Length X Width X Depth (cm): [id number] Skin Integrity Problem Comment: Midline abdominal wound w/ copious yellow/green exudate, most likely enteral in origin, and with a fecal odor. It is difficult to discern the source of this exudate, as there is no distinct fistula. Exudate appears to be coming from the R side of the wound at approximately 9 o'clock ( and toward wound base). In addition, there is well-adhered, stringy slough-like tissue at the wound base. I assessed the wound this morning, then returned at noon to discern the volume of output. It is moderately exudative, and appears to be well-managed w/ gauze. I did supply her RN Paaazucena w/ additional Tegaderm Superabsorber dressings to better manage exudate and keep moisture off her intact skin. I also applied a large stretch-net dressing over her abdomen to secure dressings and hopefully decrease amount of tape needed. Will have wound RN follow up with patient tomorrow to monitor this wound as it evolves.
[2016-12-24] MEDS: TPN 1 EA BAG IV SCH (21:22)
[2016-12-25] MEDS: METOCLOPRAMIDE 10 MG/2 ML VIAL IVP SCH ×4 (00:22→17:37)
[2016-12-25] MEDS: PIPERACILLIN SODIUM/TAZOBACTAM 3.375 GM in D5W 50 ML IV SCH ×4 (05:58→23:38)
[2016-12-25] MEDS: SCOPOLAMINE HYDROBROMIDE 1.5 MG PATCH TD SCH (09:35)
[2016-12-25] MEDS: ENOXAPARIN 40 MG/0.4 ML SYR SC SCH (09:35)
[2016-12-25] MEDS: SENNOSIDES/DOCUSATE SODIUM TAB PO SCH ×2 (09:47→22:11)
--- NOTE | 2016-12-25 10:13 | GCON ---
[f rep st] CONSULTATION INPATIENT INFECTIOUS DISEASE CONSULTATION. REFERRING PHYSICIAN: Rianna Salazar MD REASON FOR REFERRAL: Discharge from surgical wound, probable fistula. HISTORY OF PRESENT ILLNESS: The patient is a 56-year-old female with known endometrial cancer who i s status post radiation therapy, who was admitted to [facility] due to small bowel obs truction. Dr. Salazar took the patient to surgery on 12/09, where multiple adhesions and thickened sm all bowel were noted. The patient had resection of her appendix as well as a portion of her small b owel. She was maintained on Zosyn and fluconazole empirically for 1 week, and this was discontinued approximately 12/15/2016. However, she began having increased discharge from the wound a few days ago. Cultures from this discharge show Klebsiella pneumoniae. Gram stain, however, reveals in tung tion to 4+ gram-negative rods, 2+ gram-positive cocci in chains and 1+ gram-positive rods. The leroy ent was restarted on Zosyn empirically on 12/21/2016. We are consulted to help guide antibiotic cho ice and duration. PAST MEDICAL HISTORY: 1. Metastatic endometrial carcinoma. 2. Hypertension. 3. Peripheral neuropathy. PAST SURGICAL HISTORY: 1. Status post radical hysterectomy and bilateral salpingo-oophorectomy in April of 2015. 2. Sigmoid colon resection secondary to pelvic mass in January 2016. 3. Status post tonsillectomy and adenoidectomy. ANTIBIOTICS: Zosyn. ALLERGIES: Patient is allergic to paclitaxel. FAMILY HISTORY: Significant for various cancers in middle age. 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 The patient denies any tobacco use. No alcohol or drug use. REVIEW OF SYSTEMS: Other than that detailed above in the history of present illness, a comprehensiv e 10-system review is negative. PHYSICAL EXAMINATION: VITAL SIGNS: Temperature at maximum is 37.4, temp current is 37.0, heart rat e is 104, respiratory rate is 18, blood pressure is 146/70. GENERAL: The patient is a well-formed, well-nourished, middle-aged female, in no acute distress. She is not toxic in appearance. She is alert and oriented x3. She has a pleasant demeanor. HEENT: Normocephalic for age. Atraumatic. N o scleral icterus. No oral lesion or drainage from the nares. Eyes: Lids and conjunctivae are within normal limits. Pupils are equal and round bilaterally. NEC K: Supple without meningismus. LUNGS: Clear to auscultation bilaterally with good effort. HEART: Regular rate and rhythm. No murmur, rub, or gallop noted. The patient has trace peripheral edema , bilateral lower extremities. ABDOMEN: Soft, distended, mild tenderness globally. No significant rebound. The patient has a midline incision which is dressed. She has yellowish-green discharge o n the wound dressing. No significant surrounding erythema. SKIN: Warm and dry to the touch. No r stefania or lesion noted. MUSCULOSKELETAL: No other muscle belly tenderness is noted. No joint line ef fusion or arthritis is seen. NEURO: Cranial nerves 2-12 seem to be intact. Peripheral sensation s eems intact in extremities as well. LABORATORY DATA: Patient has a CBC dated 12/22/2016 that shows a white blood cell count of 5.95, he moglobin of 9.4, hematocrit of 29.3, and a platelet count of 133. Differentials within normal limit s. Serum chemistries on 12/24/2016 are all within normal limits. Creatinine 0.4. MICROBIOLOGIC DATA: The patient has wound drainage swab from 12/19/2016 which is growing Klebsiella pneumoniae, 4+. This isolate is pansensitive except for ampicillin. 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 Agree with the current broad-spectrum management with Zosyn. Would also add fluconazole 200 mg IV daily. Would f ollow the amount of discharge over time. I think the duration is dependent upon continued leakage t hrough the wound. PLAN: 1. Continue Zosyn at present dose. 2. Add fluconazole 200 mg IV q.24 hours. 3. Follow the appearance of the wound and the amount of discharge. /[id number]/MODL
[2016-12-25] MEDS: FLUCONAZOLE/NaCl 100 ML IV SCH (10:48)
--- NOTE | 2016-12-25 14:43 | WOCRNPDOC ---
WOCRN Advanced Assessment Note - Skin Integrity Problem, Advanced Assess Medial Abdomen Surgical Wound/Incision Dressing Description: Intact, Shadowed Closure Description: Retention Sutures Exudate Amount: Moderate Exudate Color: Yellow, Brown, Green Integumentary Issue Intervention: Dressing Changed Neris Wound Tissue: Erythema (with some satellite lesions around 3 oclock) Wound Bed Color: Red, Yellow, White Wound Bed Constitution: Granulation Tissue (along wound wilkes and superior aspect), Smooth Tissue, Loose Slough (base) Site Odor: Slight, Pungent Site Measurement - Head-to-Toe Length X Width X Depth (cm): 8.8x2.7x5 Skin Integrity Problem Comment: After discussion with patient a decision was made to continue with the current treatment plan for a few more days with the addition/trial of sanz straps. There appears to be a pin head sized fistula at 12 oclock at base of wound. Production is moderate. Output is thin. Retention sutures at base of wound. Flushed wound with ns. Antifungal barrier cream applied to fungal skin breakdown around 3 oclock. The remainder of the skin was protected with skin prep. Sanz straps were fitted on either side of the wound. Wound bed packed with saline moisted kerlix which was then covered with 1/2 of a tegaderm super absorbant. Vee DEGROOT was in room for all care and visualized dressing change. Reported to Dr. Salazar.
--- NOTE | 2016-12-25 18:56 | SOAPPROG ---
SOAP Progress Note Assessment/Plan: Assessment: s/p ex lap for small bowel obstruction with small bowel resection and anastomosis just proximal to terminal ileum and appendectomy Neuro -transition to po iv push Resp - Still on O2 Cards - no hemodynamic instability. home BP meds. GI - diarrhea and some gas. Likely fistula although not documented on CT. Appreciate wound care management. Limited clears. Cycle TPN Heme/ID - Lovenox. Zosyn and Fluconazole had one week. Restart Zosyn due to culture with klebsiella. Requested ID to see her. Dispo - Continue hospital management S: Pain is controlled. Nausea again. O: Lying in bed, appears comfortable Lungs CTAB Regular rate Bowel sounds present. softer. yellow/green drainage from midline wound. No obvious breach into peritoneum. No gross enteric contents Plan: 12/11/16 10:12 12/18/16 10:14 12/20/16 21:01 12/21/16 08:40 12/25/16 18:54 Objective: Vital Signs Temp Pulse Resp BP Pulse Ox 36.6 C 91 18 133/87 H 94 12/25/16 16:00 12/25/16 18:00 12/25/16 18:00 12/25/16 18:00 12/25/16 18:00 Laboratory Results 12/22/16 04:30 12/24/16 05:15 12/24/16 12/25/16 12/26/16 05:59 05:59 05:59 Intake Total 4112 300 2774 Output Total 1100 1150 2300 Balance 3012 -850 474 PT 13.8 SEC (12.0-15.0) 12/22/16 04:30 INR 1.07 (0.83-1.16) 12/22/16 04:30 ICD10 Worksheet Patient Problems: Problems Problem Status Onset Myalgia Acute Neutropenic fever Acute
[2016-12-25] MEDS: TPN 1 EA BAG IV SCH (21:32)
[2016-12-26] MEDS: METOCLOPRAMIDE 10 MG/2 ML VIAL IVP SCH ×4 (00:12→18:25)
[2016-12-26] MEDS: HYDROmorphONE/DILAUDID 1 MG/ML SYR IVP PRN (00:41)
[2016-12-26 04:37] LABS: ANION GAP 10 mEq/L (8-16); CARBON DIOXIDE 24 mEq/l (22-31); CHLORIDE 103 mEq/L (97-110); CREATININE 0.4 mg/dL (0.6-1.0); GLOMERULAR FILTRATION RATE > 60; GLUCOSE 200 mg/dL (70-100); MAGNESIUM 2.1 mg/dL (1.6-2.3); SODIUM 137 mEq/L (134-144)
[2016-12-26] MEDS: PIPERACILLIN SODIUM/TAZOBACTAM 3.375 GM in D5W 50 ML IV SCH ×3 (05:14→18:19)
[2016-12-26] MEDS: ENOXAPARIN 40 MG/0.4 ML SYR SC SCH (08:29)
[2016-12-26] MEDS: ONDANSETRON 4 MG/2 ML VIAL IVP PRN (08:29)
[2016-12-26] MEDS: FLUCONAZOLE/NaCl 100 ML IV SCH (08:30)
[2016-12-26] MEDS: SENNOSIDES/DOCUSATE SODIUM TAB PO SCH ×2 (08:36→19:38)
--- NOTE | 2016-12-26 08:45 | PCMIDPN ---
Assessment/Plan: metastatic endometrial CA s/p ex lap for small bowel obstruction with small bowel resection and anastomosis just proximal to terminal ileum and appendectomy now with suspect Fistula with peritoneal contamination, auto drainage via abdominal incision. Wound cx with polymicrobial gram stain GNR, GPC chains, GPRs, predominant organism Klebsiella, sy-S. --continue Zosyn directed at klebsiella as well as additional coverage for likely other GI renetta enterococcus, anaerobes and GNR. No concern for PsA at this point, standard dose Zosyn --length of therapy based on closure of fistula/source control meds Fluconazole 200mg IV daily Zosyn 3.375mg IV q6, #[address] Salazar Subjective: continued nausea in AM x 3-4 days +BM Objective: Vital Signs Temp Pulse Resp BP Pulse Ox 36.8 C 98 18 145/83 H 92 12/26/16 03:43 12/26/16 03:43 12/26/16 03:43 12/26/16 03:43 12/26/16 03:43 Laboratory Results 12/22/16 04:30 12/26/16 03:30 12/25/16 12/26/16 12/27/16 05:59 05:59 05:59 Intake Total 300 4474 Output Total 1150 3650 Balance -850 824 - Physical Exam General Appearance: alert, no apparent distress Respiratory: lungs clear, No accessory muscle use Cardiac/Chest: regular rate, rhythm, systolic murmur Extremities: No pedal edema, No swelling Abdomen: non-tender, soft, other (large open wound with purulent drainage at base of wound, examined with surgical team who reports less overall drainage) Skin: pallor, No rash Neuro/Psych: alert, normal mood/affect, oriented x 3 - Line/s RUE PICC Lines: No drainage, No erythema ICD10 Worksheet Patient Problems: Problems Problem Status Onset Myalgia Acute Neutropenic fever Acute
--- NOTE | 2016-12-26 09:19 | SOAPPROG ---
SOAP Progress Note Assessment/Plan: Assessment: 56yo F s/p ex lap for SBO with small bowel resection and anastomosis just proximal to terminal ileum and appendectomy Neuro -PO, IV as needed Resp - Still on O2 Cards - no hemodynamic instability. home BP meds. GI - diarrhea and some gas. Likely fistula although not documented on CT. Drainage improved today. Appreciate wound care management. Limited clears. Cycle TPN Heme/ID - Lovenox. Cx shows klebsiella. Appreciate ID recommendations - Zosyn and Fluconazole Dispo - Continue hospital management. Seen with Dr. Salazar and Dr. Starr S: Pain is controlled. Nausea this morning O: Lying in bed, appears comfortable No increased WOB, supplemental O2 Bowel sounds present. soft, nontender. yellow/green drainage from midline wound - improved compared to yesterday. No obvious breach into peritoneum. No gross enteric contents Objective: Vital Signs Temp Pulse Resp BP Pulse Ox 37.1 C 106 H 20 147/88 H 95 12/26/16 08:00 12/26/16 08:00 12/26/16 08:00 12/26/16 08:00 12/26/16 08:00 Laboratory Results 12/22/16 04:30 12/26/16 03:30 12/25/16 12/26/16 12/27/16 05:59 05:59 05:59 Intake Total 300 4474 Output Total 1150 3650 Balance -850 824 PT 13.8 SEC (12.0-15.0) 12/22/16 04:30 INR 1.07 (0.83-1.16) 12/22/16 04:30 ICD10 Worksheet Patient Problems: Problems Problem Status Onset Myalgia Acute Neutropenic fever Acute
[2016-12-26] MEDS ORDERED: PROMETHAZINE HCL 25 MG/ML INJ IVP PRN (11:23)
[2016-12-26] MEDS: ALTEPLASE 2 MG VIAL IVP PRN (12:14)
[2016-12-26] MEDS: TPN 1 EA BAG IV SCH (20:53)
[2016-12-27] MEDS: PIPERACILLIN SODIUM/TAZOBACTAM 3.375 GM in D5W 50 ML IV SCH ×5 (00:15→23:38)
[2016-12-27] MEDS: METOCLOPRAMIDE 10 MG/2 ML VIAL IVP SCH ×4 (00:32→17:31)
[2016-12-27] MEDS: FLUCONAZOLE/NaCl 100 ML IV SCH (09:15)
[2016-12-27] MEDS: ENOXAPARIN 40 MG/0.4 ML SYR SC SCH (09:15)
[2016-12-27] MEDS: SENNOSIDES/DOCUSATE SODIUM TAB PO SCH ×2 (09:16→20:26)
[2016-12-27 12:03] LABS: ANION GAP 9 mEq/L (8-16); CALCIUM 8.1 mg/dL (8.5-10.4); CARBON DIOXIDE 25 mEq/l (22-31); CHLORIDE 107 mEq/L (97-110); CREATININE 0.4 mg/dL (0.6-1.0); GLOMERULAR FILTRATION RATE > 60; GLUCOSE 147 mg/dL (70-100); POTASSIUM 4.6 mEq/L (3.5-5.2); SODIUM 141 mEq/L (134-144)
--- NOTE | 2016-12-27 16:28 | SOAPPROG ---
SOAP Progress Note Assessment/Plan: Assessment: sp sb resection/ no flatus/ mildly distended/ afebrile/ no bms/ abd soft/ wound ok Plan:continue iv, npo, ng 12/13/16 08:21 12/27/16 16:27 AFEBRILE, COMFORTABLE BUT WITH PERSISTENT FISTULA DRAINAGE IN THE MIDLINE / CONTINUE PRESENT TREATMENT Objective: Vital Signs Temp Pulse Resp BP Pulse Ox 36.8 C 99 18 135/92 H 99 12/27/16 12:00 12/27/16 12:00 12/27/16 12:00 12/27/16 12:00 12/27/16 12:00 Laboratory Results 12/22/16 04:30 12/27/16 10:55 12/26/16 12/27/16 12/28/16 05:59 05:59 05:59 Intake Total 4474 1786 Output Total 3650 1100 250 Balance 824 686 -250 PT 13.8 SEC (12.0-15.0) 12/22/16 04:30 INR 1.07 (0.83-1.16) 12/22/16 04:30 ICD10 Worksheet Patient Problems: Problems Problem Status Onset Myalgia Acute Neutropenic fever Acute
[2016-12-27] MEDS ORDERED: METOCLOPRAMIDE 10 MG/2 ML VIAL IVP PRN (17:37)
--- NOTE | 2016-12-27 17:38 | PCMIDPN ---
Assessment/Plan: metastatic endometrial CA s/p ex lap for small bowel obstruction with small bowel resection and anastomosis just proximal to terminal ileum and appendectomy now with suspect Fistula with peritoneal contamination, auto drainage via abdominal incision. Wound cx with polymicrobial gram stain GNR, GPC chains, GPRs, predominant organism Klebsiella, sy-S. No changes in clinical status today, possibly less drainage today --continue Zosyn directed at klebsiella as well as additional coverage for likely other GI renetta enterococcus, anaerobes and GNR. No concern for PsA at this point, standard dose Zosyn --length of therapy based on closure of fistula/source control meds Fluconazole 200mg IV daily Zosyn 3.375mg IV q6, #6 Subjective: feels like having to change dressings less frequently +liquid stool with every urinary void Objective: Vital Signs Temp Pulse Resp BP Pulse Ox 37.1 C 101 H 16 127/90 H 92 12/27/16 16:00 12/27/16 17:32 12/27/16 16:00 12/27/16 17:34 12/27/16 16:00 Laboratory Results 12/22/16 04:30 12/27/16 10:55 12/26/16 12/27/16 12/28/16 05:59 05:59 05:59 Intake Total 4474 1786 500 Output Total 3650 1100 1250 Balance 824 976 -750 General Appearance: alert, no apparent distress Respiratory: lungs clear, No accessory muscle use Cardiac/Chest: tachy, systolic murmur Extremities: No pedal edema, No swelling Abdomen: non-tender, soft, dressing left in place, no strike through Skin: pallor, No rash Neuro/Psych: alert, normal mood/affect, oriented x 3 RUE PICC: No drainage, No erythema ICD10 Worksheet Patient Problems: Problems Problem Status Onset Myalgia Acute Neutropenic fever Acute
[2016-12-27] MEDS: TPN 1 EA BAG IV SCH (20:26)
[2016-12-27] MEDS: HYDROmorphONE/DILAUDID 1 MG/ML SYR IVP PRN (23:50)
[2016-12-28] MEDS: PIPERACILLIN SODIUM/TAZOBACTAM 3.375 GM in D5W 50 ML IV SCH ×3 (05:31→18:41)
[2016-12-28] MEDS: FLUCONAZOLE/NaCl 100 ML IV SCH (08:10)
[2016-12-28] MEDS: ENOXAPARIN 40 MG/0.4 ML SYR SC SCH (08:10)
[2016-12-28] MEDS: SCOPOLAMINE HYDROBROMIDE 1.5 MG PATCH TD SCH (08:10)
[2016-12-28] MEDS: PROMETHAZINE HCL 25 MG/ML INJ IV PRN ×2 (08:10→13:24)
[2016-12-28] MEDS: SENNOSIDES/DOCUSATE SODIUM TAB PO SCH ×2 (08:11→21:22)
--- NOTE | 2016-12-28 12:29 | SOAPPROG ---
SOAP Progress Note Assessment/Plan: Assessment: sp sb resection/ no flatus/ mildly distended/ afebrile/ no bms/ abd soft/ wound ok Plan:continue iv, npo, ng 12/13/16 08:21 12/27/16 16:27 AFEBRILE, COMFORTABLE BUT WITH PERSISTENT FISTULA DRAINAGE IN THE MIDLINE / CONTINUE PRESENT TREATMENT 12/28/16 12:28 SOME NAUSEA, AFEBRILE/ MODERATE WOUND DRAINAGE/ PLAN CHANGE DRESSING AND RE- EVAL FISTULA AND DRESSINGS/ ? WOUND VAC Objective: Vital Signs Temp Pulse Resp BP Pulse Ox 36.6 C 116 H 20 154/94 H 98 12/28/16 11:40 12/28/16 11:40 12/28/16 11:40 12/28/16 11:40 12/28/16 11:40 Laboratory Results 12/22/16 04:30 12/27/16 10:55 12/27/16 12/28/16 12/29/16 05:59 05:59 05:59 Intake Total 1786 1945 Output Total 1100 2900 Balance 686 -955 PT 13.8 SEC (12.0-15.0) 12/22/16 04:30 INR 1.07 (0.83-1.16) 12/22/16 04:30 ICD10 Worksheet Patient Problems: Problems Problem Status Onset Myalgia Acute Neutropenic fever Acute
--- NOTE | 2016-12-28 14:50 | PCMIDPN ---
Assessment/Plan: metastatic endometrial CA s/p ex lap for small bowel obstruction with small bowel resection and anastomosis just proximal to terminal ileum and appendectomy now with suspect Fistula with peritoneal contamination, auto drainage via abdominal incision. Wound cx with polymicrobial gram stain GNR, GPC chains, GPRs, predominant organism Klebsiella, sy-S. Some increase in nausea with some vomiting --continue Zosyn directed at klebsiella as well as additional coverage for likely other GI renetta enterococcus, anaerobes and GNR. No concern for PsA at this point, or other MDR GNR, consider drop down to Unasyn. Will discuss with Dr. Salazar tomorrow. --length of therapy based on closure of fistula/source control #Nausea: side effects antibiotics, pSBO - defer eval of partial SBO to surgical team meds Fluconazole 200mg IV daily Zosyn 3.375mg IV q6, #7 Subjective: vomiting this am and 2 significant episodes of nausea Objective: Vital Signs Temp Pulse Resp BP Pulse Ox 36.6 C 116 H 20 154/94 H 98 12/28/16 11:40 12/28/16 11:40 12/28/16 11:40 12/28/16 11:40 12/28/16 11:40 Laboratory Results 12/22/16 04:30 12/27/16 10:55 12/27/16 12/28/16 12/29/16 05:59 05:59 05:59 Intake Total 1786 1945 Output Total 1100 2900 Balance 686 -955 - Physical Exam General Appearance: alert, no apparent distress Abdomen: non-tender, soft, other (dressing in place, not saturated) Skin: No rash Neuro/Psych: alert, normal mood/affect, oriented x 3 - Line/s RUE PICC Lines: No drainage, No erythema ICD10 Worksheet Patient Problems: Problems Problem Status Onset Myalgia Acute Neutropenic fever Acute
[2016-12-28] MEDS: TPN 1 EA BAG IV SCH (21:21)
[2016-12-28] MEDS: HYDROmorphONE/DILAUDID 1 MG/ML SYR IVP PRN (23:03)
[2016-12-29] MEDS: PIPERACILLIN SODIUM/TAZOBACTAM 3.375 GM in D5W 50 ML IV SCH ×2 (00:17→05:36)
[2016-12-29] MEDS: HYDROmorphONE/DILAUDID 1 MG/ML SYR IVP PRN (04:32)
[2016-12-29 06:17] LABS: % IMMATURE GRANULYOCYTES 2.2 % (0.0-1.1); ABSOLUTE IMMATURE GRANULOCYTES 0.19 10^3/uL (0.00-0.10); ABSOLUTE NRBC COUNT 0.02 10^3/uL (0-0.01); ADD DIFF? NO; ADD MORPH? NO; ADD SCAN? NO; ATYPICAL LYMPHOCYTE FLAG 80 (0-99); FRAGMENT RBC FLAG 0 (0-99); HEMATOCRIT 30.5 % (38.0-47.0); HEMOGLOBIN 9.5 g/dL (12.6-16.3); LEFT SHIFT FLG 40 (0-99); LIPEMIA HEMOLYSIS FLAG 80 (0-99); MEAN CELL HEMOGLOBIN 30.3 pg (27.9-34.1); MEAN CELL HEMOGLOBIN CONCENTR. 31.1 g/dL (32.4-36.7); MEAN CELL VOLUME 97.1 fL (81.5-99.8); MEAN PLATELET VOLUME 9.6 fL (8.7-11.7); NRBC-AUTO% 0.2 % (0.0-0.2); PLATELET CLUMPS FLAG 0 (0-99); PLATELET COUNT 177 10^3/uL (150-400); RED BLOOD CELL COUNT 3.14 10^6/uL (4.18-5.33); RED CELL DISTRIBUTION WIDTH 14.7 % (11.5-15.2)
[2016-12-29] MEDS: ALTEPLASE 2 MG VIAL IVP PRN (06:17)
[2016-12-29 06:18] LABS: INR 1.09 (0.83-1.16)
[2016-12-29 06:19] LABS: APTT 28.1 SEC (23.0-38.0)
[2016-12-29 06:21] LABS: ALANINE AMINOTRANSFERASE 42 IU/L (9-52); ALBUMIN 2.4 g/dL (3.5-5.0); ALKALINE PHOSPHATASE 348 IU/L (38-126); ANION GAP 6 mEq/L (8-16); ASPARTATE AMINOTRANSFERASE 35 IU/L (14-46); BILIRUBIN,TOTAL 0.6 mg/dL (0.1-1.4); CARBON DIOXIDE 25 mEq/l (22-31); CHLORIDE 108 mEq/L (97-110); CREATININE 0.4 mg/dL (0.6-1.0); GLOMERULAR FILTRATION RATE > 60; GLUCOSE 203 mg/dL (70-100); POTASSIUM 4.3 mEq/L (3.5-5.2); SODIUM 139 mEq/L (134-144); TOTAL PROTEIN 5.2 g/dL (6.3-8.2); TRIGLYCERIDE 199 mg/dL (35-135)
[2016-12-29] MEDS: FLUCONAZOLE/NaCl 100 ML IV SCH (08:07)
[2016-12-29] MEDS: ENOXAPARIN 40 MG/0.4 ML SYR SC SCH (08:08)
[2016-12-29] MEDS: SENNOSIDES/DOCUSATE SODIUM TAB PO SCH ×2 (08:16→22:23)
--- NOTE | 2016-12-29 09:42 | PCMIDPN ---
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 Covering with Zosyn and fluconazole currently. Patient is doing fairly well. Still see advantage to covering the potential small bowel renetta while the fistula is healing. Will however change Zosyn to Unasyn given no isolation of Pseudomonas. Duration dictated by source control at surgical site. Plan: 1. Discontinue Zosyn and start Unasyn 3.0 g IV q.6 hours. 2. Follow output at the drain sites. 3. Follow clinical course. Subjective: Patient is resting in her hospital bed. She has no particular new complaints today. Denies fevers or chills. Objective: Zosyn # 8 Fluconazole # Vital Signs Temp Pulse Resp BP Pulse Ox 36.8 C 109 H 16 145/87 H 91 L 12/29/16 07:44 12/29/16 07:44 12/29/16 07:44 12/29/16 07:44 12/29/16 07:44 Laboratory Results 12/29/16 06:00 12/29/16 06:00 12/28/16 12/29/16 12/30/16 05:59 05:59 05:59 Intake Total 1945 1610 Output Total 2900 1400 Balance -955 210 - Physical Exam General Appearance: WD/WN, alert, no apparent distress, non-toxic Respiratory: lungs clear, normal breath sounds, No respiratory distress Cardiac/Chest: regular rate, rhythm, No tachycardia Abdomen: soft, distended (Mildly), No non-tender, No rigid, No peritoneal signs Skin: normal color, warm/dry, No rash Neuro/Psych: alert, normal mood/affect, oriented x 3 ICD10 Worksheet Patient Problems: Problems Problem Status Onset Myalgia Acute Neutropenic fever Acute
[2016-12-29] MEDS ORDERED: BUPIVACAINE 0.5% 30 ML SDV ONE (09:48)
[2016-12-29] MEDS ORDERED: MIDAZOLAM 2 MG/2 ML VIAL ONE (10:44)
[2016-12-29] MEDS ORDERED: fentaNYL 100 MCG/2 ML INJ ONE (10:51)
[2016-12-29] MEDS ORDERED: ONDANSETRON 4 MG/2 ML VIAL ONE (10:51)
[2016-12-29] MEDS ORDERED: LIDOCAINE 2% 5 ML SDV ONE (10:51)
[2016-12-29] MEDS ORDERED: KETOROLAC 30 MG/1 ML SDV ONE (10:51)
[2016-12-29] MEDS ORDERED: ROCURONIUM 50 MG/5 ML VIAL ONE (10:51)
[2016-12-29] MEDS ORDERED: DEXAMETHASONE 4 MG/ML VIAL ONE (10:51)
[2016-12-29] MEDS ORDERED: PROPOFOL 200 MG/20 ML VIAL ONE (10:52)
[2016-12-29] MEDS ORDERED: SUGAMMADEX SODIUM 200 MG/2 ML VIAL IVP ONE (11:23)
--- NOTE | 2016-12-29 11:57 | SOAPPROG ---
SOAP Progress Note Assessment/Plan: Assessment: 56yo F s/p ex lap for SBO with small bowel resection and anastomosis just proximal to terminal ileum and appendectomy Neuro -PO, IV as needed Resp - Still on O2 Cards - no hemodynamic instability. home BP meds. GI - Likely fistula although not documented on CT. Drainage improving. Limited clears. Cycle TPN Heme/ID - Lovenox. Cx shows klebsiella. Appreciate ID recommendations - Zosyn and Fluconazole To OR today with Dr. Alaniz for debridement of midline wound, hope to isolate fistula and place wound vac to remainder of wound. Consent in chart, NPO, therapeutic antibiotics. Dispo - Continue hospital management, OR today. Seen with Dr. Alaniz. S: Pain is controlled. Nausea yesterday but improved today. Still passing gas and having BMs O: Lying in bed, appears comfortable No increased WOB, supplemental O2 Dressing intact - will change in OR Objective: Vital Signs Temp Pulse Resp BP Pulse Ox 36.8 C 109 H 16 145/87 H 91 L 12/29/16 07:44 12/29/16 07:44 12/29/16 07:44 12/29/16 07:44 12/29/16 07:44 Laboratory Results 12/29/16 06:00 12/29/16 06:00 12/28/16 12/29/16 12/30/16 05:59 05:59 05:59 Intake Total 1945 1610 590 Output Total 2900 1400 600 Balance -955 210 -10 PT 14.0 SEC (12.0-15.0) 12/29/16 06:00 INR 1.09 (0.83-1.16) 12/29/16 06:00 ICD10 Worksheet Patient Problems: Problems Problem Status Onset Myalgia Acute Neutropenic fever Acute
--- NOTE | 2016-12-29 12:17 | SOAPPROG ---
SOAP Progress Note Assessment/Plan: Assessment: sp sb resection/ no flatus/ mildly distended/ afebrile/ no bms/ abd soft/ wound ok Plan:continue iv, npo, ng 12/13/16 08:21 12/27/16 16:27 AFEBRILE, COMFORTABLE BUT WITH PERSISTENT FISTULA DRAINAGE IN THE MIDLINE / CONTINUE PRESENT TREATMENT 12/28/16 12:28 SOME NAUSEA, AFEBRILE/ MODERATE WOUND DRAINAGE/ PLAN CHANGE DRESSING AND RE- EVAL FISTULA AND DRESSINGS/ ? WOUND VAC 12/29/16 12:16 MARKED AMOUNT OF NECROTIC TISSUE IN THE WOUND WITH NO DEFINITE FISTULA SITE DEMONSTRATED / RISKS AND OPTIONS FULLY DISCUSSED / PLAN IS TO THE OR FOR WOUND DEBRIDEMENT AND POSSIBLE WOUND VAC PLACEMENT Objective: Vital Signs Temp Pulse Resp BP Pulse Ox 36.8 C 109 H 20 127/90 H 96 12/29/16 07:44 12/29/16 07:44 12/29/16 12:01 12/29/16 12:01 12/29/16 12:10 Laboratory Results 12/29/16 06:00 12/29/16 06:00 12/28/16 12/29/16 12/30/16 05:59 05:59 05:59 Intake Total 1945 1610 590 Output Total 2900 1400 600 Balance -955 210 -10 PT 14.0 SEC (12.0-15.0) 12/29/16 06:00 INR 1.09 (0.83-1.16) 12/29/16 06:00 ICD10 Worksheet Patient Problems: Problems Problem Status Onset Myalgia Acute Neutropenic fever Acute
--- NOTE | 2016-12-29 12:19 | POSTOPPROG ---
Post Op Note Date of Operation: 12/29/16 Surgeon: Iam Alaniz Anesthesiologist: COBY Anesthesia: GET(General Endotracheal) Pre-op Diagnosis: WOUND INFECTION WITH POSSIBLE FISTULA Post-op Diagnosis: SAME Indication: WOUND SEPSIS Procedure: LAPAROTOMY WITH THE EXCISIONAL DEBRIDEMENT AND WOUND VAC PLACEMENT Findings: EXTENSIVE NECROTIC FASCIA AND INTRA-ABDOMINAL DEBRIS BUT NO DEFINITE FISTU Inf/Abcess present in the surg proc area at time of surgery?: Yes Depth: Organ Space EBL: Minimal Complications: 0 Drains: Wound Vac Specimen(s): CULTURE
[2016-12-29] MEDS: AMPICILLIN/SULBACTAM 3 GM in NS 100 ML IV SCH ×2 (13:23→18:23)
[2016-12-29] MEDS: TPN 1 EA BAG IV SCH (21:33)
[2016-12-30] MEDS: AMPICILLIN/SULBACTAM 3 GM in NS 100 ML IV SCH ×4 (00:30→18:32)
[2016-12-30 05:50] LABS: ANION GAP 9 mEq/L (8-16); CALCIUM 8.3 mg/dL (8.5-10.4); CARBON DIOXIDE 23 mEq/l (22-31); CHLORIDE 108 mEq/L (97-110); CREATININE 0.5 mg/dL (0.6-1.0); GLOMERULAR FILTRATION RATE > 60; GLUCOSE 289 mg/dL (70-100); SODIUM 140 mEq/L (134-144)
[2016-12-30] MEDS: FLUCONAZOLE/NaCl 100 ML IV SCH (09:27)
[2016-12-30] MEDS: SENNOSIDES/DOCUSATE SODIUM TAB PO SCH ×2 (09:39→21:45)
--- NOTE | 2016-12-30 10:11 | SOAPPROG ---
SOAP Progress Note Assessment/Plan: Assessment: 56yo F s/p ex lap for SBO with small bowel resection and anastomosis just proximal to terminal ileum and appendectomy s/p debridement of midline wound and wound vac placement Neuro -PO, IV as needed Resp - Still on O2 Cards - no hemodynamic instability. home BP meds. GI - Likely fistula although not documented on CT. Limited clears. Cycle TPN Heme/ID - Lovenox. Cx shows klebsiella. Appreciate ID recommendations - Zosyn and Fluconazole Plan OR tomorrow for vac change Dispo - Continue hospital management. Discussed c Dr. Alaniz S: Pain is controlled. Nausea resolved. Still passing gas and having BMs O: Lying in bed, appears comfortable, friend at bedside No increased WOB, supplemental O2 Wound vac intact to suction. Scant serosanguinous fluid in canister - no green/ yellow or enteric-appearing! Objective: Vital Signs Temp Pulse Resp BP Pulse Ox 36.8 C 108 H 18 147/87 H 94 12/30/16 07:45 12/30/16 07:45 12/30/16 07:45 12/30/16 07:45 12/30/16 07:45 Microbiology 12/29/16 11:15 Gram Stain - Final Abdomen - Anaerobic Tube/Swab Laboratory Results 12/29/16 06:00 12/30/16 05:20 12/29/16 12/30/16 12/31/16 05:59 05:59 05:59 Intake Total 1610 3130 Output Total 1400 2500 Balance 210 630 PT 14.0 SEC (12.0-15.0) 12/29/16 06:00 INR 1.09 (0.83-1.16) 12/29/16 06:00 ICD10 Worksheet Patient Problems: Problems Problem Status Onset Myalgia Acute Neutropenic fever Acute
--- NOTE | 2016-12-30 12:39 | PCMIDPN ---
Assessment/Plan: Assessment/Plan: 56 y.o female, with Metastatic endometrial CA s/p ex lap for small bowel obstruction with small bowel resection and anastomosis just proximal to terminal ileum and appendectomy (12/09/16), spillage at time of surgery and drainage from abdominal incision site. 1. Post op wound infection/necrotic fascia: - s/p exp lap with debridement 12/29/16: necrotic fascia noted, Fistula suspected but no definite fistula noted on surgery's note. - Cx with Klebsiella initially (resistant only to Amp). Cx from yesterday in progress but GNR X2 noted so far. -Currently on Unasyn + fluconazole therapy - s/p wound vac - Labs reviewed. -Continue with current therapy for now. Meds Unasyn 3g q6- 12/29/16 fluconazole 200mg daily- 12/25/16 s/p zosyn from (12/09/16-12/12/16)-; and (12/20/16- 12/29/16) Subjective: Afebrile. FEels better today. Less overall abd pain. Denies nausea. having loose stools about 3x/day. Denies sob, cough. on clear liquids at present and tolerating. Objective: Vital Signs Temp Pulse Resp BP Pulse Ox 36.9 C 99 18 135/96 H 99 12/30/16 12:15 12/30/16 12:15 12/30/16 12:15 12/30/16 12:15 12/30/16 12:15 Microbiology 12/29/16 11:15 Gram Stain - Final Abdomen - Anaerobic Tube/Swab Laboratory Results 12/29/16 06:00 12/30/16 05:20 12/29/16 12/30/16 12/31/16 05:59 05:59 05:59 Intake Total 1610 3130 Output Total 1400 2500 Balance 210 630 - Physical Exam General Appearance: alert, no apparent distress Respiratory: lungs clear Cardiac/Chest: regular rate, rhythm Extremities: other (picc line RUE; no swelling), No swelling Abdomen: other (BS quiet. distended. wound vac noted. nontender to palpation. ) Skin: No erythema ICD10 Worksheet Patient Problems: Problems Problem Status Onset Myalgia Acute Neutropenic fever Acute
[2016-12-30] MEDS: ALTEPLASE 2 MG VIAL IVP PRN (19:54)
[2016-12-30] MEDS: TPN 1 EA BAG IV SCH (20:51)
[2016-12-31] MEDS: AMPICILLIN/SULBACTAM 3 GM in NS 100 ML IV SCH ×4 (00:01→17:31)
[2016-12-31 05:57] LABS: HEMATOCRIT 29.8 % (38.0-47.0); HEMOGLOBIN 9.6 g/dL (12.6-16.3); MEAN CELL HEMOGLOBIN 30.5 pg (27.9-34.1); MEAN CELL HEMOGLOBIN CONCENTR. 32.2 g/dL (32.4-36.7); MEAN CELL VOLUME 94.6 fL (81.5-99.8); RED BLOOD CELL COUNT 3.15 10^6/uL (4.18-5.33); RED CELL DISTRIBUTION WIDTH 15.2 % (11.5-15.2)
[2016-12-31 05:58] LABS: ANION GAP 8 mEq/L (8-16); CARBON DIOXIDE 23 mEq/l (22-31); CHLORIDE 107 mEq/L (97-110); CREATININE 0.5 mg/dL (0.6-1.0); GLOMERULAR FILTRATION RATE > 60; GLUCOSE 161 mg/dL (70-100); MAGNESIUM 1.8 mg/dL (1.6-2.3); POTASSIUM 4.1 mEq/L (3.5-5.2); SODIUM 138 mEq/L (134-144)
[2016-12-31] MEDS: SCOPOLAMINE HYDROBROMIDE 1.5 MG PATCH TD SCH (09:09)
[2016-12-31] MEDS: FLUCONAZOLE/NaCl 100 ML IV SCH (09:09)
[2016-12-31] MEDS: ENOXAPARIN 40 MG/0.4 ML SYR SC SCH (09:09)
--- NOTE | 2016-12-31 09:53 | SOAPPROG ---
SOAP Progress Note Assessment/Plan: Assessment: 56yo F s/p ex lap for SBO with small bowel resection and anastomosis just proximal to terminal ileum and appendectomy s/p debridement of midline wound and wound vac placement No fistula seen at the time of surgery Back to OR today for vac change - consent signed in chart, NPO, therapeutic abx Cycle TPN, NPO for procedure today S: No nausea since OR on thursday. Still passing flatus and having BMs, more diarrhea. O: Lying in bed, appears comfortable No increased WOB, supplemental O2 Wound vac intact to suction. Scant serosanguinous fluid in canister - no green/ yellow or enteric-appearing! 12/31/16 09:51 Objective: Vital Signs Temp Pulse Resp BP Pulse Ox 36.8 C 108 H 16 149/90 H 91 L 12/31/16 07:44 12/31/16 07:44 12/31/16 07:44 12/31/16 07:44 12/31/16 07:44 Microbiology 12/29/16 11:15 Gram Stain - Final Abdomen - Anaerobic Tube/Swab Laboratory Results 12/31/16 05:40 12/31/16 05:40 12/30/16 12/31/16 01/01/17 05:59 05:59 05:59 Intake Total 3130 2350 Output Total 2500 1850 200 Balance 630 500 -200 PT 14.0 SEC (12.0-15.0) 12/29/16 06:00 INR 1.09 (0.83-1.16) 12/29/16 06:00 ICD10 Worksheet Patient Problems: Problems Problem Status Onset Myalgia Acute Neutropenic fever Acute
[2016-12-31] MEDS: SENNOSIDES/DOCUSATE SODIUM TAB PO SCH ×2 (10:53→21:59)
[2016-12-31] MEDS ORDERED: BUPIVACAINE 0.5% 30 ML SDV ONE (12:22)
[2016-12-31] MEDS ORDERED: MIDAZOLAM 2 MG/2 ML VIAL ONE (14:20)
[2016-12-31] MEDS ORDERED: DEXAMETHASONE 4 MG/ML VIAL ONE (14:24)
[2016-12-31] MEDS ORDERED: PROPOFOL 200 MG/20 ML VIAL ONE ×2 (14:24→15:21)
[2016-12-31] MEDS ORDERED: fentaNYL 250 MCG/5 ML INJ ONE (14:24)
[2016-12-31] MEDS ORDERED: ONDANSETRON 4 MG/2 ML VIAL ONE (14:25)
[2016-12-31] MEDS ORDERED: ROCURONIUM 50 MG/5 ML VIAL ONE (14:50)
[2016-12-31] MEDS ORDERED: SUGAMMADEX SODIUM 200 MG/2 ML VIAL IVP ONE (15:31)
--- NOTE | 2016-12-31 15:52 | POSTOPPROG ---
Post Op Note Date of Operation: 12/31/16 Surgeon: Iam Alaniz Access Representative: PETERSON Peter MS, Juancarlos Groves MS Anesthesiologist: Amado ALMODOVAR Anesthesia: GET(General Endotracheal) Pre-op Diagnosis: delayed wound healing Post-op Diagnosis: same Procedure: laparotomy with wound debridement, wound vac placement Findings: wound much improved, no necrotic tissue Inf/Abcess present in the surg proc area at time of surgery?: No EBL: Minimal Complications: none Drains: Wound Vac Specimen(s): none
--- NOTE | 2016-12-31 17:53 | PCMIDPN ---
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 Covering with Unasyn and fluconazole currently. Patient is doing very well. Recent culture with generally sensitive Klebsiella, Citrobacter and Norma. All isolates are covered by current regimen. Duration dictated by source control at surgical site. Will judged source control by wound healing. Plan: 1. Continue both Unasyn and fluconazole. 2. Follow output at the drain sites. 3. Follow clinical course. 12/31/16 17:50 Subjective: Patient is resting in her hospital bed. She reports no new symptoms. She had her FAC changed earlier today. Postoperative reports are that there is no necrotic tissue in the wound bed and that the wound is slowly getting smaller. Objective: Unasyn # 10 Fluconazole # Vital Signs Temp Pulse Resp BP Pulse Ox 36.7 C 89 18 135/92 H 98 12/31/16 16:56 12/31/16 16:56 12/31/16 16:56 12/31/16 16:56 12/31/16 16:56 Microbiology 12/29/16 11:15 Gram Stain - Final Abdomen - Anaerobic Tube/Swab Laboratory Results 12/31/16 05:40 12/31/16 05:40 12/30/16 12/31/16 01/01/17 05:59 05:59 05:59 Intake Total 3130 2350 1400 Output Total 2500 1850 805 Balance 630 500 595 - Physical Exam General Appearance: WD/WN, alert, no apparent distress, non-toxic Respiratory: lungs clear, normal breath sounds, No respiratory distress Cardiac/Chest: regular rate, rhythm, No tachycardia Extremities: non-tender, normal inspection Abdomen: non-tender, soft, other (VAC dressing midline. Wound tissue surrounding looks good.) Skin: normal color, warm/dry, No rash Neuro/Psych: alert, normal mood/affect, oriented x 3 ICD10 Worksheet Patient Problems: Problems Problem Status Onset Myalgia Acute Neutropenic fever Acute
[2016-12-31] MEDS: TPN 1 EA BAG IV SCH (20:49)
[2017-01-01] MEDS: AMPICILLIN/SULBACTAM 3 GM in NS 100 ML IV SCH ×5 (00:01→23:39)
[2017-01-01] MEDS: ENOXAPARIN 40 MG/0.4 ML SYR SC SCH (08:50)
[2017-01-01] MEDS: FLUCONAZOLE/NaCl 100 ML IV SCH (08:51)
[2017-01-01] MEDS: SENNOSIDES/DOCUSATE SODIUM TAB PO SCH ×2 (10:59→21:16)
--- NOTE | 2017-01-01 13:14 | PCMIDPN ---
Assessment/Plan: Assessment/Plan: * Postoperative wound infection/peritoneal contamination/possible bowel fistula (clinically not identified) with polymicrobial cultures: Debrided yesterday with resolution of necrotic fascia noted. Patient feels clinically improved. Plan 7 days of antibiotic therapy post debridement yesterday. If discharge, will utilize ertapenem 1 g IV daily for ease of administration. 01/01/17 13:12 01/01/17 13:13 Subjective: Patient feels significantly improved. Mild lower abdominal pain. Objective: Vital Signs Temp Pulse Resp BP Pulse Ox 36.8 C 76 18 100/54 L 96 01/01/17 11:35 01/01/17 11:35 01/01/17 11:35 01/01/17 11:35 01/01/17 11:35 Microbiology 12/29/16 11:15 Gram Stain - Final Abdomen - Anaerobic Tube/Swab Laboratory Results 12/31/16 05:40 12/31/16 05:40 12/31/16 01/01/17 01/02/17 05:59 05:59 05:59 Intake Total 2350 1850 Output Total 1850 1705 Balance 500 145 Unasyn # 11 Fluconazole # 8 - Physical Exam General Appearance: alert, no apparent distress EENT: No scleral icterus, No thrush Respiratory: lungs clear, No respiratory distress Cardiac/Chest: regular rate, rhythm Abdomen: non-tender, other (Wound VAC in place in midline), No distended - Line/s RUE PICC Lines: No drainage, No erythema ICD10 Worksheet Patient Problems: Problems Problem Status Onset Myalgia Acute Neutropenic fever Acute
--- NOTE | 2017-01-01 14:11 | SOAPPROG ---
SOAP Progress Note Assessment/Plan: Assessment: s/p ex lap for small bowel obstruction with small bowel resection and anastomosis just proximal to terminal ileum and appendectomy s/p washout and debridement with dr. dowd. No fistula identified. Neuro -Iv push Resp - Still on O2 Cards - no hemodynamic instability. IV meds GI - diarrhea and some gas. May have solid food today. To OR tomorrow for wound vac change Heme/ID - Lovenox. Appreciate ID Dispo - Continue hospital management. Will need wound vac on discharge S: Pain is controlled. feels better. No green in canister x 2 days O: Sitting in bed, appears comfortable Softer. WV to suction Plan: 12/11/16 10:12 12/18/16 10:14 12/20/16 21:01 12/21/16 08:40 12/25/16 18:54 01/01/17 14:05 Objective: Vital Signs Temp Pulse Resp BP Pulse Ox 36.8 C 76 18 100/54 L 96 01/01/17 11:35 01/01/17 11:35 01/01/17 11:35 01/01/17 11:35 01/01/17 11:35 Microbiology 12/29/16 11:15 Gram Stain - Final Abdomen - Anaerobic Tube/Swab Laboratory Results 12/31/16 05:40 12/31/16 05:40 12/31/16 01/01/17 01/02/17 05:59 05:59 05:59 Intake Total 2350 1850 Output Total 1850 1705 Balance 500 145 PT 14.0 SEC (12.0-15.0) 12/29/16 06:00 INR 1.09 (0.83-1.16) 12/29/16 06:00 ICD10 Worksheet Patient Problems: Problems Problem Status Onset Myalgia Acute Neutropenic fever Acute
[2017-01-01] MEDS: HYDROmorphONE/DILAUDID 1 MG/ML SYR IVP PRN (21:23)
[2017-01-01] MEDS: TPN 1 EA BAG IV SCH (21:23)
[2017-01-02] MEDS: AMPICILLIN/SULBACTAM 3 GM in NS 100 ML IV SCH ×3 (05:29→18:22)
[2017-01-02 05:59] LABS: ANION GAP 9 mEq/L (8-16); CARBON DIOXIDE 22 mEq/l (22-31); CHLORIDE 105 mEq/L (97-110); CREATININE 0.4 mg/dL (0.6-1.0); GLOMERULAR FILTRATION RATE > 60; GLUCOSE 114 mg/dL (70-100); MAGNESIUM 1.8 mg/dL (1.6-2.3); SODIUM 136 mEq/L (134-144)
[2017-01-02] MEDS ORDERED: BUPIVACAINE 0.5% 30 ML SDV ONE (08:19)
[2017-01-02] MEDS: FLUCONAZOLE/NaCl 100 ML IV SCH (08:22)
[2017-01-02] MEDS: SENNOSIDES/DOCUSATE SODIUM TAB PO SCH ×2 (08:30→21:31)
[2017-01-02] MEDS: ENOXAPARIN 40 MG/0.4 ML SYR SC SCH (08:30)
[2017-01-02] MEDS ORDERED: LR 1,000 ML IV ONE (08:47)
[2017-01-02] MEDS ORDERED: MIDAZOLAM 2 MG/2 ML VIAL ONE (08:55)
[2017-01-02] MEDS ORDERED: fentaNYL 100 MCG/2 ML INJ ONE (08:59)
[2017-01-02] MEDS ORDERED: PROPOFOL/EMULSION 500 MG/50 ML BOTTLE IV ONE (09:00)
--- NOTE | 2017-01-02 09:34 | POSTOPPROG ---
Post Op Note Date of Operation: 01/02/17 Surgeon: Rianna Salazar Anesthesiologist: herman Anesthesia: GET(General Endotracheal) Pre-op Diagnosis: midline wound dehiscence Post-op Diagnosis: same Indication: 56 yo with cancer, sbo, s/p fistula, wound breakdown Procedure: wound vac change Findings: clean Inf/Abcess present in the surg proc area at time of surgery?: Yes Depth: Deep Incisional (Fascial) (fascia) EBL: Minimal Complications: none Drains: Wound Vac
--- NOTE | 2017-01-02 10:22 | GOP ---
[f rep st] OPERATIVE REPORT DATE OF OPERATION: 01/02/2017 SURGEON: Rianna Salazar MD ANESTHESIA: Power Kenyon MD/monitored anesthesia care with IV sedation. PREOPERATIVE DIAGNOSIS: Abdominal wound dehiscence. POSTOPERATIVE DIAGNOSIS: Abdominal wound dehiscence. PROCEDURE PERFORMED: Change of wound VAC. FINDINGS: Clean tissue. SPECIMENS: None. ESTIMATED BLOOD LOSS: Zero. INDICATIONS: The patient is a 56-year-old woman who has a history of cancer. She also had a severe small bowel obstruction. Took her to the operating room and performed a small bowel resection she had either some sort of fistula or non-loculated abscess of enteric contents, which has resolved. Loida Alaniz has taken her and debrided the fascia and placed a wound VAC. She presents for wound VAC claudia adams. DESCRIPTION OF PROCEDURE: The patient was brought into the operating room and placed supine on the table, and monitored anesthesia care with IV sedation was performed. The wound VAC sponge was remov ed. Her abdomen was prepped with Betadine. I irrigated the area with saline. I then placed white sponge followed by black sponge. The wound VAC was reattached. She tolerated the procedure well. She was awakened in the operating room, and transferred to PACU in stable condition. /[id number]/MODL
[2017-01-02] MEDS: TPN 1 EA BAG IV SCH (20:21)
[2017-01-02] MEDS: HYDROmorphONE/DILAUDID 1 MG/ML SYR IVP PRN (20:27)
[2017-01-03] MEDS: AMPICILLIN/SULBACTAM 3 GM in NS 100 ML IV SCH ×4 (00:08→18:06)
[2017-01-03 05:26] LABS: % IMMATURE GRANULYOCYTES 1.4 % (0.0-1.1); ABSOLUTE IMMATURE GRANULOCYTES 0.14 10^3/uL (0.00-0.10); ABSOLUTE NRBC COUNT 0.06 10^3/uL (0-0.01); ADD DIFF? NO; ADD MORPH? NO; ADD SCAN? NO; ATYPICAL LYMPHOCYTE FLAG 20 (0-99); FRAGMENT RBC FLAG 0 (0-99); HEMATOCRIT 28.8 % (38.0-47.0); HEMOGLOBIN 9.1 g/dL (12.6-16.3); LEFT SHIFT FLG 30 (0-99); LIPEMIA HEMOLYSIS FLAG 80 (0-99); MEAN CELL HEMOGLOBIN 30.5 pg (27.9-34.1); MEAN CELL HEMOGLOBIN CONCENTR. 31.6 g/dL (32.4-36.7); MEAN CELL VOLUME 96.6 fL (81.5-99.8); MEAN PLATELET VOLUME 9.6 fL (8.7-11.7); NRBC-AUTO% 0.6 % (0.0-0.2); PLATELET CLUMPS FLAG 10 (0-99); PLATELET COUNT 174 10^3/uL (150-400); RED BLOOD CELL COUNT 2.98 10^6/uL (4.18-5.33); RED CELL DISTRIBUTION WIDTH 15.5 % (11.5-15.2)
[2017-01-03 05:46] LABS: ANION GAP 8 mEq/L (8-16); CALCIUM 7.9 mg/dL (8.5-10.4); CARBON DIOXIDE 23 mEq/l (22-31); CHLORIDE 103 mEq/L (97-110); CREATININE 0.4 mg/dL (0.6-1.0); GLOMERULAR FILTRATION RATE > 60; GLUCOSE 147 mg/dL (70-100); POTASSIUM 3.8 mEq/L (3.5-5.2); SODIUM 134 mEq/L (134-144)
[2017-01-03] MEDS ORDERED: PROMETHAZINE HCL 25 MG/ML INJ IV PRN (08:31)
[2017-01-03] MEDS ORDERED: HYDROCODONE/APAP 5/325 TAB PO PRN (08:33)
--- NOTE | 2017-01-03 08:33 | SOAPPROG ---
SOAP Progress Note Assessment/Plan: Assessment: s/p ex lap for small bowel obstruction with small bowel resection and anastomosis just proximal to terminal ileum and appendectomy s/p washout and debridement with dr. dowd. No fistula identified. Wound vac change 01/02 Neuro -[place] Resp - Off O2 Cards - no hemodynamic instability. GI - diarrhea and some gas. Regular diet. Decrease TPN. Heme/ID - Lovenox. Appreciate ID Dispo - Continue hospital management. Will need wound vac on discharge. Will need IV abx on discharge. S: Pain is controlled. feels better. O: Sitting in bed, appears comfortable Softer. WV to suction No green in canister CTAb RRR Plan: 12/11/16 10:12 12/18/16 10:14 12/20/16 21:01 12/21/16 08:40 12/25/16 18:54 01/01/17 14:05 01/03/17 08:32 Objective: Vital Signs Temp Pulse Resp BP Pulse Ox 36.7 C 109 H 18 143/87 H 93 01/03/17 08:00 01/03/17 08:00 01/03/17 08:00 01/03/17 08:00 01/03/17 08:00 Microbiology 12/29/16 11:15 Gram Stain - Final Abdomen - Anaerobic Tube/Swab Laboratory Results 01/03/17 05:20 01/03/17 05:20 01/02/17 01/03/17 01/04/17 05:59 05:59 05:59 Intake Total 2150 2560 Output Total 1000 3500 Balance 1150 -940 PT 14.0 SEC (12.0-15.0) 12/29/16 06:00 INR 1.09 (0.83-1.16) 12/29/16 06:00 ICD10 Worksheet Patient Problems: Problems Problem Status Onset Myalgia Acute Neutropenic fever Acute
[2017-01-03] MEDS: FLUCONAZOLE/NaCl 100 ML IV SCH (09:03)
[2017-01-03] MEDS: ENOXAPARIN 40 MG/0.4 ML SYR SC SCH (09:44)
[2017-01-03] MEDS: SCOPOLAMINE HYDROBROMIDE 1.5 MG PATCH TD SCH (09:46)
--- NOTE | 2017-01-03 13:05 | SOAPPROG ---
[facility] Progress Note Assessment/Plan: Assessment: 1. Recurrent endometrial CA s/p chemo / xrt / resection of SBO due to adhesions. Now JUDITH from cancer so far. Post op complicated by wound dehiscence / infection. No evidence of fistula formation. No current plans for additional Avastin. Her sisters are coming into town on 01/06/2017. This is the target date for her to be discharged. 2. Malnutrition - TPN tapering / eating better Plan: Continue post op care/wound vac Will resume Tamoxifen x 3 weeks alternating with Megace x 3 weeks alternating as an outpatient No current plans for resumption of Avastin Subjective: Feels much better. Eating. Walking. Looking forward to going home. Objective: Vital Signs Temp Pulse Resp BP Pulse Ox 36.9 C 108 H 18 137/96 H 94 01/03/17 12:00 01/03/17 12:00 01/03/17 12:00 01/03/17 12:00 01/03/17 12:00 Microbiology 12/29/16 11:15 Gram Stain - Final Abdomen - Anaerobic Tube/Swab Laboratory Results 01/03/17 05:20 01/03/17 05:20 01/01/17 01/02/17 01/03/17 23:59 23:59 23:59 Intake Total 1200 2300 1660 Output Total 1900 2900 600 Balance -700 -600 1060 PT 14.0 SEC (12.0-15.0) 12/29/16 06:00 INR 1.09 (0.83-1.16) 12/29/16 06:00 Physical Exam - Physical Exam General Appearance: alert, no apparent distress Respiratory: lungs clear Cardiac/Chest: regular rate, rhythm Abdomen: normal bowel sounds, soft, other (midline wound vac in place) Skin: warm/dry Neuro/Psych: oriented x 3, No depressed affect ICD10 Worksheet Patient Problems: Problems Problem Status Onset Myalgia Acute Neutropenic fever Acute
[2017-01-03] MEDS: TPN 1 EA BAG IV SCH (20:35)
[2017-01-03] MEDS: HYDROmorphONE/DILAUDID 1 MG/ML SYR IVP PRN (21:08)
[2017-01-04] MEDS: AMPICILLIN/SULBACTAM 3 GM in NS 100 ML IV SCH ×5 (00:08→23:57)
[2017-01-04 06:01] LABS: ANION GAP 8 mEq/L (8-16); CALCIUM 8.1 mg/dL (8.5-10.4); CARBON DIOXIDE 23 mEq/l (22-31); CHLORIDE 103 mEq/L (97-110); CREATININE 0.4 mg/dL (0.6-1.0); GLOMERULAR FILTRATION RATE > 60; GLUCOSE 118 mg/dL (70-100); SODIUM 134 mEq/L (134-144)
--- NOTE | 2017-01-04 08:04 | SOAPPROG ---
SOAP Progress Note Assessment/Plan: Assessment: s/p ex lap for small bowel obstruction with small bowel resection and anastomosis just proximal to terminal ileum and appendectomy s/p washout and debridement with dr. dowd. No fistula identified. Wound vac change 01/02 Neuro -[place] Resp - Off O2 Cards - no hemodynamic instability. GI - loose stool yesterday. Regular diet. Discontinue TPN. Heme/ID - Lovenox. Appreciate ID. May not need IV abx on discharge Dispo - Continue hospital management. Will need wound vac on discharge. POssibly home on Thursday S: Pain is controlled. feels better. O: Sitting in bed, appears comfortable Softer. WV to suction No green in canister CTAb RRR Plan: 12/11/16 10:12 12/18/16 10:14 12/20/16 21:01 12/21/16 08:40 12/25/16 18:54 01/01/17 14:05 01/03/17 08:32 01/04/17 08:03 Objective: Vital Signs Temp Pulse Resp BP Pulse Ox 36.9 C 104 H 18 143/89 H 92 01/04/17 07:49 01/04/17 07:49 01/04/17 07:49 01/04/17 07:49 01/04/17 07:49 Microbiology 12/29/16 11:15 Gram Stain - Final Abdomen - Anaerobic Tube/Swab Laboratory Results 01/03/17 05:20 01/04/17 05:30 01/03/17 01/04/17 01/05/17 05:59 05:59 05:59 Intake Total 2560 2330 Output Total 3500 1500 Balance -940 830 PT 14.0 SEC (12.0-15.0) 12/29/16 06:00 INR 1.09 (0.83-1.16) 12/29/16 06:00 ICD10 Worksheet Patient Problems: Problems Problem Status Onset Myalgia Acute Neutropenic fever Acute
[2017-01-04] MEDS: FLUCONAZOLE/NaCl 100 ML IV SCH (09:01)
[2017-01-04] MEDS: ENOXAPARIN 40 MG/0.4 ML SYR SC SCH (09:20)
--- NOTE | 2017-01-04 14:11 | SOAPPROG ---
DONA Progress Note Assessment/Plan: Assessment: 1. Recurrent endometrial CA s/p chemo / xrt / resection of SBO due to adhesions. Now JUDITH from cancer so far. Post op complicated by wound dehiscence / infection. No evidence of fistula formation. No current plans for additional Avastin. Her sisters are coming into town on 01/06/2017. This is the target date for her to be discharged. Wound vac to be replaced on 01/05/2017 2. Malnutrition - TPN is off. Patient is eating. Plan: Continue post op care/wound vac Will resume Tamoxifen x 3 weeks alternating with Megace x 3 weeks alternating as an outpatient No current plans for resumption of Avastin She will need to see me in 1-2 weeks post discharge as an outpatient. Subjective: Smiling. Looking forward to going home Objective: Vital Signs Temp Pulse Resp BP Pulse Ox 36.7 C 124 H 18 144/125 H 92 01/04/17 12:00 01/04/17 12:00 01/04/17 12:00 01/04/17 12:00 01/04/17 12:00 Microbiology 12/29/16 11:15 Gram Stain - Final Abdomen - Anaerobic Tube/Swab Laboratory Results 01/03/17 05:20 01/04/17 05:30 01/02/17 01/03/17 01/04/17 23:59 23:59 23:59 Intake Total 2300 2960 1411 Output Total 2900 1400 700 Balance -600 1560 711 PT 14.0 SEC (12.0-15.0) 12/29/16 06:00 INR 1.09 (0.83-1.16) 12/29/16 06:00 Physical Exam - Physical Exam General Appearance: alert, no apparent distress Neuro/Psych: normal mood/affect, oriented x 3 ICD10 Worksheet Patient Problems: Problems Problem Status Onset Myalgia Acute Neutropenic fever Acute
[2017-01-04 20:13] VITALS: RESP 16
[2017-01-04] MEDS: HYDROmorphONE/DILAUDID 1 MG/ML SYR IVP PRN (20:24)
[2017-01-05] MEDS: AMPICILLIN/SULBACTAM 3 GM in NS 100 ML IV SCH ×4 (07:04→23:48)
[2017-01-05 07:08] LABS: % IMMATURE GRANULYOCYTES 0.7 % (0.0-1.1); ABSOLUTE IMMATURE GRANULOCYTES 0.05 10^3/uL (0.00-0.10); ADD DIFF? NO; ADD MORPH? NO; ADD SCAN? NO; ATYPICAL LYMPHOCYTE FLAG 20 (0-99); FRAGMENT RBC FLAG 0 (0-99); HEMATOCRIT 28.4 % (38.0-47.0); HEMOGLOBIN 9.2 g/dL (12.6-16.3); LEFT SHIFT FLG 10 (0-99); LIPEMIA HEMOLYSIS FLAG 80 (0-99); MEAN CELL HEMOGLOBIN 31.1 pg (27.9-34.1); MEAN CELL HEMOGLOBIN CONCENTR. 32.4 g/dL (32.4-36.7); MEAN CELL VOLUME 95.9 fL (81.5-99.8); MEAN PLATELET VOLUME 9.4 fL (8.7-11.7); PLATELET CLUMPS FLAG 10 (0-99); PLATELET COUNT 169 10^3/uL (150-400); RED BLOOD CELL COUNT 2.96 10^6/uL (4.18-5.33); RED CELL DISTRIBUTION WIDTH 15.9 % (11.5-15.2)
[2017-01-05 07:17] LABS: APTT 25.2 SEC (23.0-38.0); INR 1.06 (0.83-1.16); PROTIME(PATIENT) 13.7 SEC (12.0-15.0)
[2017-01-05 07:21] LABS: ALANINE AMINOTRANSFERASE 38 IU/L (9-52); ALBUMIN 2.3 g/dL (3.5-5.0); ALKALINE PHOSPHATASE 280 IU/L (38-126); ANION GAP 10 mEq/L (8-16); ASPARTATE AMINOTRANSFERASE 19 IU/L (14-46); BILIRUBIN,TOTAL 0.8 mg/dL (0.1-1.4); CALCIUM 7.7 mg/dL (8.5-10.4); CARBON DIOXIDE 25 mEq/l (22-31); CHLORIDE 106 mEq/L (97-110); CREATININE 0.4 mg/dL (0.6-1.0); GLOMERULAR FILTRATION RATE > 60; GLUCOSE 94 mg/dL (70-100); MAGNESIUM 1.7 mg/dL (1.6-2.3); POTASSIUM 3.6 mEq/L (3.5-5.2); SODIUM 141 mEq/L (134-144); TRIGLYCERIDE 135 mg/dL (35-135)
[2017-01-05] MEDS: ENOXAPARIN 40 MG/0.4 ML SYR SC SCH (08:04)
[2017-01-05] MEDS: FLUCONAZOLE/NaCl 100 ML IV SCH (08:09)
[2017-01-05] MEDS: HYDROmorphONE/DILAUDID 1 MG/ML SYR IVP PRN ×2 (08:43→20:27)
--- NOTE | 2017-01-05 10:40 | SOAPPROG ---
SOAP Progress Note Assessment/Plan: Assessment: s/p ex lap for small bowel obstruction with small bowel resection and anastomosis just proximal to terminal ileum and appendectomy s/p washout and debridement with dr. dowd. No fistula identified. Wound vac change om OR 01/02 Neuro -[place] Resp - Off O2 Cards - no hemodynamic instability. GI - having BMs and passing flatus. Regular diet. Off TPN. Heme/ID - Lovenox. Appreciate ID. May not need IV abx on discharge Wound vac changed today - yellow fluid in wound bed, but cleared with irrigation. Dispo - Continue hospital management. Will need wound vac on discharge. Will stay until wound vac change on , then home with home care. Seen with Dr. Salazar S: Pain is controlled. no complaints this morning O: Laying in bed, appears comfortable Wound vac removed, yellow fluid in canister and in base of wound. The wound bed was irrigated with NS with return of clear fluid. no reaccumulation of yellow or green fluid. Wound vac dressing reapplied - white sponge in base with black overtop. suction to 75mHg. Abd soft nontender nondistended Objective: Vital Signs Temp Pulse Resp BP Pulse Ox 36.8 C 93 16 133/90 H 91 L 01/05/17 07:37 01/05/17 07:37 01/05/17 07:37 01/05/17 07:37 01/05/17 07:37 Microbiology 12/29/16 11:15 Gram Stain - Final Abdomen - Anaerobic Tube/Swab Laboratory Results 01/05/17 07:00 01/05/17 07:00 01/04/17 01/05/17 01/06/17 05:59 05:59 05:59 Intake Total 2330 1831 Output Total 1500 800 Balance 830 1031 PT 13.7 SEC (12.0-15.0) 01/05/17 07:00 INR 1.06 (0.83-1.16) 01/05/17 07:00 ICD10 Worksheet Patient Problems: Problems Problem Status Onset Myalgia Acute Neutropenic fever Acute
--- NOTE | 2017-01-05 18:03 | PCMIDPN ---
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 Appears to be resolved. Last wound check by surgery showed no evidence of persisting fistula. Previous duration of treatment with Unasyn and fluconazole through 01/07. Plan: 1. Continue both Unasyn and fluconazole. 2. Follow output at the drain sites. 3. Follow clinical course. Subjective: Patient resting in bed. Feels better. Eating well. no complaints. Here through Thursday for another vac change. Objective: Unasyn Fluconazole (end date 01/07) Vital Signs Temp Pulse Resp BP Pulse Ox 37.3 C 100 16 140/89 H 92 01/05/17 15:50 01/05/17 15:50 01/05/17 15:50 01/05/17 15:50 01/05/17 15:50 Microbiology 12/29/16 11:15 Gram Stain - Final Abdomen - Anaerobic Tube/Swab Anaerobic Culture - Final Klebsiella Pneumoniae Citrobacter Freundii Cmplx Norma Albicans Laboratory Results 01/05/17 07:00 01/05/17 07:00 01/04/17 01/05/17 01/06/17 05:59 05:59 05:59 Intake Total 2330 1831 200 Output Total 1322 842 1556 Balance 830 1031 -1150 - Physical Exam General Appearance: WD/WN, alert, no apparent distress, non-toxic Respiratory: lungs clear, normal breath sounds, No respiratory distress Cardiac/Chest: regular rate, rhythm, No tachycardia Skin: normal color, warm/dry, No rash ICD10 Worksheet Patient Problems: Problems Problem Status Onset Myalgia Acute Neutropenic fever Acute
[2017-01-06] MEDS: AMPICILLIN/SULBACTAM 3 GM in NS 100 ML IV SCH ×3 (06:27→18:32)
[2017-01-06] MEDS: FLUCONAZOLE/NaCl 100 ML IV SCH (08:56)
[2017-01-06] MEDS: SCOPOLAMINE HYDROBROMIDE 1.5 MG PATCH TD SCH (08:59)
[2017-01-06] MEDS: ENOXAPARIN 40 MG/0.4 ML SYR SC SCH (08:59)
--- NOTE | 2017-01-06 09:15 | SOAPPROG ---
SOAP Progress Note Assessment/Plan: Assessment: s/p ex lap for small bowel obstruction with small bowel resection and anastomosis just proximal to terminal ileum and appendectomy s/p washout and debridement with dr. dowd. No fistula identified. Wound vac change in OR 01/02 Neuro -[place] Resp - Off O2 Cards - no hemodynamic instability. GI - having BMs and passing flatus. NPO with ice chips for comfort Heme/ID - Lovenox. Appreciate ID - will discuss extending IV antibiotic course Yellow-green fluid in wound vac tubing - HIGHLY suspicious for low-output fistula. Will trial NPO to see if this decreases wound output. Imaging has not been helpful in the past. Dispo - Continue hospital management. Seen with Dr. Salazar S: Pain is controlled. no complaints this morning O: Laying in bed, appears comfortable Wound vac dressing to suction. Yellowish-green fluid in tubing and canister. suction to 75mHg. Abd soft nontender nondistended Objective: Vital Signs Temp Pulse Resp BP Pulse Ox 36.7 C 101 H 16 133/89 H 93 01/06/17 08:21 01/06/17 08:21 01/06/17 08:21 01/06/17 08:21 01/06/17 08:21 Microbiology 12/29/16 11:15 Gram Stain - Final Abdomen - Anaerobic Tube/Swab Anaerobic Culture - Final Klebsiella Pneumoniae Citrobacter Freundii Cmplx Norma Albicans Laboratory Results 01/05/17 07:00 01/05/17 07:00 01/05/17 01/06/17 01/07/17 05:59 05:59 05:59 Intake Total 1831 440 Output Total 800 1800 Balance 1031 -1360 PT 13.7 SEC (12.0-15.0) 01/05/17 07:00 INR 1.06 (0.83-1.16) 01/05/17 07:00 ICD10 Worksheet Patient Problems: Problems Problem Status Onset Myalgia Acute Neutropenic fever Acute
--- NOTE | 2017-01-06 11:33 | PCMIDPN ---
Assessment/Plan: metastatic endometrial CA s/p ex lap for small bowel obstruction with small bowel resection and anastomosis just proximal to terminal ileum and appendectomy with possible Fistula with peritoneal contamination, s/p washout . Still some ongoing concern that there is leak because of increased yellow output from wound with advancing diet, discussed with Dr. Salazar. Cultures have shown Klebsiella and Citrobacter and Norma. --will plan approximately 2 weeks of therapy after washout, stop date/re-eval date 01/12. May need repeat imaging at that time --continue on Unasyn and fluconazole for now if NPO at discharge would change to ceftriaxone plus fluconazole --if dc on PO diet, then augmentin/fluconazole thorugh 01/12 meds Fluconazole 200mg IV daily Unasyn 3gm IV q6h Subjective: really wants to go home Objective: Vital Signs Temp Pulse Resp BP Pulse Ox 36.7 C 101 H 16 133/89 H 93 01/06/17 08:21 01/06/17 08:21 01/06/17 08:21 01/06/17 08:21 01/06/17 08:21 Microbiology 12/29/16 11:15 Gram Stain - Final Abdomen - Anaerobic Tube/Swab Anaerobic Culture - Final Klebsiella Pneumoniae Citrobacter Freundii Cmplx Norma Albicans Laboratory Results 01/05/17 07:00 01/05/17 07:00 01/05/17 01/06/17 01/07/17 05:59 05:59 05:59 Intake Total 1831 440 Output Total 800 1800 Balance 1031 -1360 - Physical Exam General Appearance: alert, no apparent distress EENT: No scleral icterus Respiratory: lungs clear Cardiac/Chest: regular rate, rhythm Extremities: No pedal edema Abdomen: normal bowel sounds, non-tender, soft, other (wound vac in place; yellow fluid in tube) Pelvic Exam: No marquez Skin: pallor, No rash Neuro/Psych: alert, normal mood/affect, oriented x 3 - Line/s RUE PICC Lines: No drainage, No erythema - Time Spent With Patient Time Spent with Patient: greater than 25 minutes Time Spent with Patient: Greater than 25 minutes spent on this patients care, greater than 50% of time spent counseling, educating, and coordinating care regarding the above mentioned plan. ICD10 Worksheet Patient Problems: Problems Problem Status Onset Myalgia Acute Neutropenic fever Acute
[2017-01-06] MEDS ORDERED: NS 1,000 ML IV SCH (18:00)
[2017-01-06] MEDS: HYDROmorphONE/DILAUDID 1 MG/ML SYR IVP PRN (22:46)
[2017-01-07] MEDS: AMPICILLIN/SULBACTAM 3 GM in NS 100 ML IV SCH ×2 (00:47→06:15)
[2017-01-07 06:04] VITALS: O2SAT 90
--- NOTE | 2017-01-07 08:41 | PDIAF ---
- Diagnosis Diagnosis: Polymicrobial peritonitis/fistula Code Status: Full Code - Medication Management Discharge Medications: Medications to Continue on Transfer amLODIPine BESYLATE [Norvasc 10 mg (*)] 10 mg PO DAILY@18 12/08/16 [Last Taken 12/08/16] Long-Term Antibiotics: ertapenem 1gm IV daily; fluconazole 200mg IV daily Clinical Applications Manager Antibiotic Stop Date: 01/21/17 Discharge Medications: Refer to the Discharge Home Medication list for PRN reason. PICC Care - Routine: Yes - Orders Services needed: Home Care, Registered Nurse Home Care Face to Face: I certify that this patient was under my care and that I had the required [id number] encounter meeting the encounter requirements on the discharge day. My findings support the fact that the patient is homebound as defined in CMS Chapter 7 Medicare Benefits Manual 30.1.1, The condition of the patient is such that there exists a normal inability to leave home and consequently, leaving home would require a considerable and taxing effort. - Labs/Radiology CBC Date: 01/12/17 (Thursday weekly) CMP Date: 01/12/17 Call or Fax Lab and Imaging Results to: roger [phone] - Follow Up Care Current Providers and Referrals: Nohemi Poe NP [Primary Care Provider] - Farhat Amador MD [Medical Doctor] - (1-2 weeks) Laura Starr MD [Medical Doctor] - 01/20/17
--- NOTE | 2017-01-07 08:43 | PCMIDPN ---
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 Prior cx show klebsiella, Citrobacter and Norma. Will be NPO for up to two weeks therefore PO antibiotics not possible. 01/05 labs were stable --IV ertapenem 1gm IV daily + fluconazole 200mg IV daily through 01/21. first dose of ertapenem today. Primary gap is enterococcus and more resistant GNR, neither previously isolated --follow up ID clinic 01/21/17 at 11am --dc Unasyn meds Fluconazole 200mg IV daily Unasyn 3gm IV q6h Time 15 min >50% time spent with discharge planning, coordination of care with surgical team. Education about IV abx regimen 01/07/17 09:49 Subjective: patient without c/o Objective: Vital Signs Temp Pulse Resp BP Pulse Ox 37.1 C 97 16 126/83 H 90 L 01/07/17 06:02 01/07/17 06:02 01/07/17 06:02 01/07/17 06:02 01/07/17 06:02 Laboratory Results 01/05/17 07:00 01/05/17 07:00 01/06/17 01/07/17 01/08/17 05:59 05:59 05:59 Intake Total 440 900 Output Total 1800 800 Balance -1360 100 patient examined at same time as surgery team present. Wound vac off, base of wound appears healthy, no erythema surrounding. + yellow material present on sponge RUE PICC c/d/i ICD10 Worksheet Patient Problems: Problems Problem Status Onset Myalgia Acute Neutropenic fever Acute
--- NOTE | 2017-01-07 08:47 | PDIAF ---
- Diagnosis Diagnosis: Polymicrobial peritonitis/fistula Code Status: Full Code - Medication Management Discharge Medications: Medications to Continue on Transfer amLODIPine BESYLATE [Norvasc 10 mg (*)] 10 mg PO DAILY@18 12/08/16 [Last Taken 12/08/16] Mcc Antibiotics: ertapenem 1gm IV daily; fluconazole 200mg IV daily Cigar Making Supervisor Antibiotic Stop Date: 01/21/17 Discharge Medications: Refer to the Discharge Home Medication list for PRN reason. PICC Care - Routine: Yes - Orders Services needed: Home Care, Registered Nurse Home Care Face to Face: I certify that this patient was under my care and that I had the required [id number] encounter meeting the encounter requirements on the discharge day. My findings support the fact that the patient is homebound as defined in CMS Chapter 7 Medicare Benefits Manual 30.1.1, The condition of the patient is such that there exists a normal inability to leave home and consequently, leaving home would require a considerable and taxing effort. Diet Recommendation: other (NPO) Diet Texture: None Tube feeding: Nightly TPN Cramer: No Wound Care Instructions: Change wound vac dressing Tuesdays and Fridays. Black and white sponge in base. Remove sponge and irrigate wound with NS. Cut white sponge to fit base of wound (undermining 5cm to left, 3cm to right) then black sponge superficial. Suction at 75mmHg. Activity/Weight Bearing Restrictions: No heavy lifting, pushing or pulling > 15lbs - Labs/Radiology CBC Date: 01/12/17 (Thursday weekly) CMP Date: 01/12/17 (Thursday weekly) Call or Fax Lab and Imaging Results to: roger [phone] - Follow Up Care Current Providers and Referrals: Nohemi Poe NP [Primary Care Provider] - Laura Starr MD [Medical Doctor] - 01/20/17 Farhat Amador MD [Medical Doctor] - (1-2 weeks) Rianna Salazar MD [Medical Doctor] - 01/13/17
[2017-01-07] MEDS ORDERED: ERTAPENEM 1 GM in NS 100 ML IV SCH (09:00)
--- NOTE | 2017-01-07 09:25 | SOAPPROG ---
SOAP Progress Note Assessment/Plan: Assessment: s/p ex lap for small bowel obstruction with small bowel resection and anastomosis just proximal to terminal ileum and appendectomy s/p washout and debridement with dr. dowd. No fistula identified. Wound vac change in OR 01/02 Neuro -[place] Resp - Off O2 Cards - no hemodynamic instability. GI - having BMs and passing flatus. NPO with ice chips for comfort. Resume TPN Heme/ID - Lovenox. Appreciate ID - IV Invanz and Fluconazole x 2 weeks. Yellow-green fluid in wound bed - HIGHLY suspicious for low-output fistula. Will treat for fistula. NPO with TPN and wound vac Dispo - D/c home today with wound vac, TPN and IV antibiotics. Wound vac change Tuesdays and Fridays. Seen with Dr. Salazar and Dr. Starr S: Pain is controlled. no complaints this morning but wants to go home! O: Laying in bed, appears comfortable Wound vac dressing removed. yellowish drainage in wound bed but no fistula actively identified. Wound irrigated and redressed with white sponge, black sponge and vac to suction at 75mmHg Abd soft nontender nondistended Objective: Vital Signs Temp Pulse Resp BP Pulse Ox 37.1 C 97 16 126/83 H 90 L 01/07/17 06:02 01/07/17 06:02 01/07/17 06:02 01/07/17 06:02 01/07/17 06:02 Laboratory Results 01/05/17 07:00 01/05/17 07:00 01/06/17 01/07/17 01/08/17 05:59 05:59 05:59 Intake Total 440 900 Output Total 1800 800 Balance -1360 100 PT 13.7 SEC (12.0-15.0) 01/05/17 07:00 INR 1.06 (0.83-1.16) 01/05/17 07:00 ICD10 Worksheet Patient Problems: Problems Problem Status Onset Myalgia Acute Neutropenic fever Acute
[2017-01-07] MEDS: ENOXAPARIN 40 MG/0.4 ML SYR SC SCH (09:29)
[2017-01-07 10:33] VITALS: BP 132/82; PULSE 107; TEMP 98.1
[2017-01-07] MEDS: FLUCONAZOLE/NaCl 100 ML IV SCH (10:38)
== END 2017-01-07 12:37 | disposition home health service (06) | DRG 330 ==
LOC: F3E 12:30 → OBSVTOIN 17:40 → F1N 19:51
PROVIDERS: ADMIT Surgery; ATTEND Surgery
DX: K56.5 Intestinal adhesions [bands] with obstruction (postinfection) (principal); T66.XXXS Radiation sickness, unspecified, sequela; T81.4XXA Infection following a procedure, initial encounter; B96.1 Klebsiella pneumoniae [K. pneumoniae] as the cause of diseases classified elsewhere; D62 Acute posthemorrhagic anemia; I96 Gangrene, not elsewhere classified; E46 Unspecified protein-calorie malnutrition; C54.1 Malignant neoplasm of endometrium; G62.9 Polyneuropathy, unspecified; R11.2 Nausea with vomiting, unspecified; I10 Essential (primary) hypertension; Z53.31 Laparoscopic surgical procedure converted to open procedure; Z90.710 Acquired absence of both cervix and uterus; Z90.722 Acquired absence of ovaries, bilateral; Z90.79 Acquired absence of other genital organ(s)
CPT/HCPCS: 97165-GO; C1751; J0295; J0697; J1100; J1170; J1335; J1450; J1650; J1885; J2250; J2405; J2543; J2550; J2704; J2765; J2997; J3010; Q9967

== ENCOUNTER → 2017-02-02 | Outpatient (CLI) | payer OTHER ==
[~2017-02-02] MED LIST changes: -BUPIVACAINE 0.5% 30 ML SDV ONE; +IOPAMIDOL (ISOVUE-300) 100 ML BTL IV ONE; -SKIN ADHESIVE (DERMABOND) 1 EACH TP ONE; -cefOXitin SODIUM 1 GM in D5W 50 ML IV ONE
== END ==
LOC: FIMAGING 11:22
PROVIDERS: ATTEND Internal Medicine Infectious Disease
DX: K63.2 Fistula of intestine (principal)
CPT/HCPCS: Q9967

== ENCOUNTER 2017-11-26 16:13 | Emergency (ER) | payer OTHER ==
[2017-11-26 16:20] VITALS: TEMP 98.6
--- NOTE | 2017-11-26 16:26 | EDPHY ---
H & P Time Seen by Provider: 11/26/17 16:24 HPI/ROS: CHIEF COMPLAINT: Abdominal cramping nausea and vomiting HISTORY OF PRESENT ILLNESS: History of bowel obstruction in December of 2016, history of metastatic endometrial cancer. Patient was at work and felt well until 2:00 a.m. When she developed crampy abdominal pain followed by 4 episodes of nausea and vomiting. She left work at 5:30 a.m. And continued to have dry heaves as recently as 2:00 p.m.. She has pain in her abdomen which radiates to her back. Feels a little bit associated bloating and distended but no diarrhea. Feels like her previous bowel obstruction. Still has nausea at this time, associated with being thirsty and a mild headache. REVIEW OF SYSTEMS: Eye: no change in vision ENT: no sore throat Cardiac: no chest pain or syncope Pulmonary: no cough or SOB Abdomen: HPI Musculoskeletal: no back pain Skin: Abdominal fistula is stable Neuro: Mild headache Constitutional: no fever : no urinary symptoms A comprehensive 10 point review of systems is otherwise negative aside from elements mentioned in the history of present illness. PAST MEDICAL HISTORY: Includes metastatic endometrial cancer, peripheral neuropathy from chemotherapy, hypertension, hysterectomy and oophorectomy, sigmoid colon resection. 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 Eyes: No scleral icterus. ENT, Mouth: Normal mucous membranes. Respiratory: Normal respiratory effort, breath sounds equal, lungs are clear to auscultation. Cardiovascular: Regular rate and rhythm. Gastrointestinal: Mild abdominal tenderness but no rebound or guarding. Dressing in place over the fistula. Bowel sounds quiet but present. Neurological: Alert, face symmetric, normal motor and sensory in extremities. Skin: Warm and dry, no rashes. Musculoskeletal: No peripheral edema. Psychiatric: Not agitated. Emergency Department course/MDM: Phenergan 6.25 mg IV at her request for nausea, normal saline 1 L IV, CT scanning abdomen and pelvis discussed and consented. Physicians are Dr. Farhat Amador from [facility] and Dr. Rianna Salazar. 1827: 2 loops of bowel inflamed, anteriorly, possible reason for symptoms. No definite SBO. Results discussed, [facility] Seen by surgeon, recommends patient can be discharged if she tolerates oral fluids. Patient would like to try and go home if possible. 2000: took oral fluids, no N/V, wants DC. Smoking Status: Never smoked Constitutional: Initial Vital Signs Temperature (C) 37 C 11/26/17 16:18 Heart Rate 85 11/26/17 16:18 Respiratory Rate 18 11/26/17 16:18 Blood Pressure 154/85 H 11/26/17 16:18 O2 Sat (%) 94 11/26/17 16:18 O2 Delivery Mode Room Air Allergies/Adverse Reactions: paclitaxel [From Taxol] Allergy (Verified 11/26/17 16:16) Anaphylaxis Home Medications: Medication Instructions Recorded amLODIPine BESYLATE [Norvasc 10 mg 10 mg PO DAILY@18 12/08/16 (*)] Hydrochlorothiazide 11/26/17 Megace 20 mg (*) 11/26/17 Tamoxifen Citrate 11/26/17 Medical Decision Making Differential Diagnosis: Differential considered including but not limited to gastroenteritis, food poisoning, bowel obstruction, metabolic problem. - Data Points Laboratory Results: Laboratory Results 11/26/17 16:39 11/26/17 16:39 11/26/17 11/26/17 11/26/17 16:39 16:39 16:30 WBC 7.96 10^3/uL 10^3/uL (3.80-9.50) RBC 4.73 10^6/uL 10^6/uL (4.18-5.33) Hgb 14.5 g/dL g/dL (12.6-16.3) Hct 43.1 % % (38.0-47.0) MCV 91.1 fL fL (81.5-99.8) MCH 30.7 pg pg (27.9-34.1) MCHC 33.6 g/dL g/dL (32.4-36.7) RDW 13.4 % % (11.5-15.2) Plt Count 272 10^3/uL 10^3/uL (150-400) MPV 8.8 fL fL (8.7-11.7) Neut % (Auto) 80.3 % H % (39.3-74.2) Lymph % (Auto) 13.3 % L % (15.0-45.0) [place] % (Auto) 5.5 % % (4.5-13.0) Eos % (Auto) 0.1 % L % (0.6-7.6) Baso % (Auto) 0.4 % % (0.3-1.7) Nucleat RBC Rel Count 0.0 % % (0.0-0.2) Absolute Neuts (auto) 6.39 10^3/uL 10^3/uL (1.70-6.50) Absolute Lymphs (auto) 1.06 10^3/uL 10^3/uL (1.00-3.00) Absolute Monos (auto) 0.44 10^3/uL 10^3/uL (0.30-0.80) Absolute Eos (auto) 0.01 10^3/uL L 10^3/uL (0.03-0.40) Absolute Basos (auto) 0.03 10^3/uL 10^3/uL (0.02-0.10) Absolute Nucleated RBC 0.00 10^3/uL 10^3/uL (0-0.01) Immature Gran % 0.4 % % (0.0-1.1) Immature Gran # 0.03 10^3/uL 10^3/uL (0.00-0.10) Sodium 141 mEq/L mEq/L (135-145) Potassium 3.2 mEq/L L mEq/L (3.5-5.2) Chloride 103 mEq/L mEq/L (97-110) Carbon Dioxide 23 mEq/l mEq/l (22-31) Anion Gap 15 mEq/L mEq/L (8-16) BUN 10 mg/dL mg/dL (7-23) Creatinine 0.7 mg/dL mg/dL (0.6-1.0) Estimated GFR > 60 Glucose 117 mg/dL H mg/dL (70-100) Calcium 9.6 mg/dL mg/dL (8.5-10.4) Total Bilirubin 0.9 mg/dL mg/dL (0.1-1.4) Conjugated Bilirubin 0.3 mg/dL mg/dL (0.0-0.5) Unconjugated Bilirubin 0.6 mg/dL mg/dL (0.0-1.1) AST 25 IU/L IU/L (14-46) ALT 31 IU/L IU/L (9-52) Alkaline Phosphatase 91 IU/L IU/L (38-126) Total Protein 7.2 g/dL g/dL (6.3-8.2) Albumin 4.3 g/dL g/dL (3.5-5.0) Lipase 59 IU/L IU/L (23-300) Medications Given: Discontinued Medications Sodium Chloride (Ns) 1,000 mls @ 0 mls/hr IV EDNOW ONE; Wide Open PRN Reason: Protocol Stop: 11/26/17 16:45 Last Admin: 11/26/17 16:50 Dose: 1,000 mls Promethazine HCl (Phenergan) 6.25 mg IVP EDNOW ONE Stop: 11/26/17 16:45 Last Admin: 11/26/17 16:50 Dose: 6.25 mg Departure - Departure Disposition: Home, Routine, Self-Care Clinical Impression: Nausea & vomiting Qualifiers: Vomiting type: unspecified Vomiting Intractability: non-intractable Qualified Code(s): R11.2 - Nausea with vomiting, unspecified Condition: Good Instructions: Acute Nausea and Vomiting (ED) Referrals: Nohemi Poe NP [Primary Care Provider] - As per Instructions Rianna Salazar MD [Medical Doctor] - As per Instructions
[2017-11-26] MEDS ORDERED: NS 1,000 ML IV ONE (16:44)
[2017-11-26] MEDS ORDERED: PROMETHAZINE HCL 25 MG/ML INJ IVP ONE (16:44)
[2017-11-26] MEDS ORDERED: PROMETHAZINE HCL 25 MG/ML INJ ONE (16:45)
[2017-11-26 16:49] LABS: PLATELET COUNT 272 10^3/uL (150-400)
[2017-11-26] MEDS ORDERED: IOPAMIDOL (ISOVUE-300) 100 ML BTL ONE (17:35)
[2017-11-26 20:02] VITALS: BP 125/7; PULSE 78; RESP 16; O2SAT 96
--- NOTE | 2017-11-26 22:02 | GCON ---
[f rep st] CONSULTATION DATE OF CONSULTATION: 11/26/2017 CHIEF COMPLAINT: Abdominal cramps with nausea. HISTORY OF PRESENT ILLNESS: This is a 57-year-old female, known to my partner, Dr. Salazar, for a long standing enterocutaneous fistula. Briefly, the patient has a history of metastatic endometrial cance r diagnosed in March 2015. She subsequently underwent a hysterectomy with bilateral salpingo-oophorec james and subsequent chemo and radiation therapy. She subsequently had a recurrence in December 2015 and at that time, required a partial colectomy. Since that time, she has had a longstanding indolent en terocutaneous fistula, as well as at least 1 prior admission for small-bowel obstruction. She states that she has otherwise been in her usual state of health and feeling well. 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 This persisted to the point where she actually le ft work prior to shift change. Subsequently went home, felt fairly miserable throughout the day with persistent symptoms. She spoke with my partner, Dr. Salazar, who recommended evaluation in the emerge ncy department and she is subsequently here. Here in the emergency department, she actually states t hat she feels well and that the cramps have resolved with some fluid resuscitation and antiemetics, s tating that she overall feels well and that the previous symptoms she was having were gone. She curr ently denies having any nausea, states that she has minimal to no abdominal pain. She does endorse t hat her EC fistula usually has scant output every day but that over the last 24 hours, it has had a l ittle bit more, difficult to quantify but clearly, more on the dressings per, her report. No change in character. She states her last bowel movement was yesterday and that she does not really recall p assing gas today, which is not uncommon for her. She denies having any fevers or chills. PAST MEDICAL HISTORY: Metastatic endometrial carcinoma with recurrence, status post hysterectomy and BSO and subsequent debulking with colectomy. Hypertension and neuropathy, as well as an enterocutan eous fistula. PAST SURGICAL HISTORY: Again, radical hysterectomy, followed by sigmoid colon resection, as well as a tonsillectomy and adenoidectomy. CURRENT MEDICATIONS: Reviewed. ALLERGIES: Paclitaxel. FAMILY HISTORY: Noncontributory. 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 Has never smoked. Denies illicit drug use. REVIEW OF SYSTEMS: A full 10-point review was performed. PHYSICAL EXAM: VITAL SIGNS: Blood pressure 125/70, heart rate 78. She is 96% on room air. CONSTIT UTIONAL: She is in no apparent distress. She appears comfortable. HEENT: Eyes, her pupils are equ al, round, and reactive to light and accommodation. Her extraocular movements are intact. Ears, nos e, mouth, throat, she has dry mucous membranes. Her hearing is normal. Her ears are normal, and she has normal dentition. CARDIOVASCULAR: Regular rate and rhythm without any murmurs. RESPIRATORY: No respiratory distress, rales, or rhonchi. She is otherwise clear to auscultation. GI: Normoactiv e bowel sounds. Abdomen soft, nondistended, nontender. Her EC fistula has scant output on the dress ing. There is no rebound tenderness or guarding appreciated. SKIN: Warm, normal color. No rashes. MUSCULOSKELETAL: Full strength, no weakness. Normal joint range of motion. NEUROLOGIC: Alert and oriented x3. Cranial nerves 2-12 are intact. She has no weakness, no numbness. PSYCHIATRIC: She is interacting appropriately. She is not anxious or encephalopathic. LYMPH/HEME/IMMUNOLOGIC: She h as no cervical or groin lymphadenopathy appreciated. LABORATORY DATA: White blood cell count normal at 7. H and H stable at 14 and 43, platelets 272. H er chemistry with the exception of a low potassium at 3.2 is otherwise unremarkable. IMAGING: The patient had CT scanning of her abdomen and pelvis with IV contrast, the images of which were personally reviewed by me. There are a few small dilated small bowel loops in the inferior-ant erior pelvis, question early bowel obstruction. I see no free air. No free fluid. No fidelina bowel o bstruction or any other concerning findings. ASSESSMENT AND PLAN: A 57-year-old female, with persistent enterocutaneous fistula, status post radi cary hysterectomy and subsequent debulking for endometrial cancer. On my evaluation of the patient in the emergency department, she actually feels well after being hydrated and states that the cramps simon ve improved. She has no objective findings which I feel at this point in time warrant admission. He r CT scan does show some fluid-filled dilated small bowel loops and it is unclear whether these are c hronic or not given her enterocutaneous fistula. The patient at this point in time feels well and wo uld like to attempt a p.o. challenge and go home and I feel that this is reasonable. She has an adeq uate background and understands her current situation. I feel that if she is able to adequately hydr ate and able to go home, that this is a reasonable course as I feel if she decompensates or worsens, she will follow up. She understands return precautions. I told her to follow a bland diet for the n ext few weeks as she likely does have an early partial small bowel obstruction which is resolving or resolved at this point in time. I asked her to either call the clinic or return back to the emergenc y department should her symptoms return and/or worsen. She voiced understanding of this. /[id number]/MODL
== END 2017-11-26 20:02 | disposition home or self-care (01) ==
DX: R11.2 Nausea with vomiting, unspecified (principal); E86.9 Volume depletion, unspecified; I10 Essential (primary) hypertension; Z90.710 Acquired absence of both cervix and uterus; Z85.42 Personal history of malignant neoplasm of other parts of uterus
CPT/HCPCS: 96374; J2550; Q9967

== ENCOUNTER 2018-01-13 05:42 | Inpatient (IN) | payer OTHER ==
--- NOTE | 2018-01-12 20:43 | GHP ---
[f rep st] HISTORY AND PHYSICAL DATE OF ADMISSION: 01/13/2018 CHIEF COMPLAINT: Enterocutaneous fistula. HISTORY OF PRESENT ILLNESS: The patient is a 57-year-old woman who had endometrial cancer. She is s tatus post chemotherapy and radiation. She had recurrent progressive small bowel obstructions. Took the patient to the operating room for exploratory laparotomy with lysis of adhesions, and small gregorio l resection. She developed a chronic low output enterocutaneous fistula. She has been approximately a year since her last chemo. She denies any changes in her health since I last saw her, other than having an epigastric hernia. She noticed it a few months ago. It is nontender. PAST MEDICAL HISTORY: Endometrial cancer with EC fistula, hypertension, migraine. PAST SURGICAL HISTORY: Adenoidectomy, appendectomy, hysterectomy, bilateral salpingo-oophorectomy, s mall bowel resection, tonsillectomy. MEDICATIONS: Amlodipine, hydrochlorothiazide, Megace, tamoxifen. ALLERGIES: Taxol. FAMILY HISTORY: Alzheimer's, COPD, coronary artery disease, diabetes, lung cancer, pancreatic cancer . 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 She denies tobacco or alcohol use. She has a son. REVIEW OF SYSTEMS: Ten-point review of systems negative. PHYSICAL EXAMINATION: GENERAL: Pleasant, well-nourished, well-groomed woman. HEENT: Normocephalic . No gross hearing deficits. Mucous membranes moist. Pupils equal and round. No scleral icterus. LUNGS: Clear to auscultation bilaterally. No increased work of breathing. CARDIAC: Regular rate. No peripheral edema. ABDOMEN: Bowel sounds present. Soft. She has scant staining by her abdomen . PSYCH: Mood and affect normal. NEURO: Grossly intact. IMPRESSION AND PLAN: The patient is a 57-year-old woman with an enterocutaneous fistula and a ventra l hernia. I will take her to the operating room for repair of the hernia. I will also repair the en terocutaneous fistula. The risks and benefits, including, but not limited to, stroke, heart attack, , blood clots, infection, bleeding, damage to surrounding structures, likely bowel resection, po ssible leak, were all discussed. She had her questions answered to her satisfaction and signed the i nformed consent. /[id number]/MODL
--- NOTE | 2018-01-13 06:18 | PDHPUP ---
History & Physical Update H&P update statement: This history and physical update is based on an assessment of the patient which was completed after admission or registration (within 24 hours), but prior to the surgery/procedure. H&P update: H&P reviewed & patient examined, no change in patient's condition since H&P completed
[2018-01-13] MEDS ORDERED: cefOXitin SODIUM 2 GM in STERILE WATER INJ 21 ML IV ONE (06:19)
[2018-01-13] MEDS ORDERED: LIDOCAINE 1% 2 ML INJ ID PRN (06:20)
[2018-01-13] MEDS ORDERED: LR 1,000 ML IV ONE (06:20)
[2018-01-13] MEDS ORDERED: MIDAZOLAM 2 MG/2 ML VIAL IVP ONE (06:45)
--- NOTE | 2018-01-13 06:45 | PDANEPAE ---
ANE History of Present Illness fistula revision/bowel resection/hernia repair ANE Past Medical History - Cardiovascular History Hx Hypertension: Yes Hx Arrhythmias: No Hx Chest Pain: No Hx Coronary Artery / Peripheral Vascular Disease: No Hx CHF / Valvular Disease: No Hx Palpitations: No - Pulmonary History Hx COPD: No Hx Asthma/Reactive Airway Disease: No Hx Recent Upper Respiratory Infection: No Hx Oxygen in Use at Home: No Hx Sleep Apnea: No Sleep Apnea Screening Result - Last Documented: Negative - Neurologic History Hx Cerebrovascular Accident: No Hx Seizures: No Hx Dementia: No Neurologic History Comment: remote HX MIGRAINES - Endocrine History Hx Diabetes: No - Renal History Hx Renal Disorders: Yes Renal History Comment: incontinence - Liver History Hx Hepatic Disorders: No - Neurological & Psychiatric Hx Hx Neurological and Psychiatric Disorders: No - Cancer History Hx Cancer: Yes Cancer History Comment: ENDOMETRIAL CA 03/2015, HYST, CHEMO, SIGMOIDECTOMY. METS TO COLON. STOPPED CHEMO 11/06/16 FOR SURGERY - Congenital Disorder History Hx Congenital Disorders: No - GI History Hx Gastrointestinal Disorders: Yes Gastrointestinal History Comment: enterocutaneous fistula-mid abd - Other Health History Other Health History: none - Chronic Pain History Chronic Pain: No - Surgical History Prior Surgeries: Sx for bowel obstruction 3-;. PORT PLACEMENT WITH ALBINO . SIGMOIDECTOMY 12/10/15. HYSTERECTOMY & SALPINGECTOMY 04/18/15. TONSILLECTOMY AND ADENOIDECTOMY ANE Review of Systems Review of Systems: - Exercise capacity METS (RN): 4 METS ANE Patient History - Allergies Allergies/Adverse Reactions: paclitaxel [From Taxol] Allergy (Verified 01/05/18 10:14) Anaphylaxis - Home Medications Home medications: home medication list seen and reviewed Home Medications: Hydrochlorothiazide [HCTZ (*)] 25 mg PO DAILY 11/26/17 [Last Taken Unknown] Megestrol Acetate [Megace 40 mg (*)] 40 mg PO BID 11/26/17 [Last Taken Unknown] Tamoxifen Citrate 20 mg PO DAILY 11/26/17 [Last Taken Unknown] Ibuprofen [Motrin (*)] 200 mg PO DAILY PRN 12/31/17 [Last Taken Unknown] amLODIPine BESYLATE [Norvasc 5 mg (*)] 5 mg PO DAILY 12/31/17 [Last Taken Unknown] - NPO status NPO Status: no food or drink >8 hours - Anes Hx Anes Hx: post operative nausea and vomiting - Smoking Hx Smoking Status: Never smoked - Alcohol Use Alcohol Use: None - Family Anes Hx Family Anes Hx: none Family Hx Anesthesia Complications: NONE ANE Labs/Vital Signs - Vital Signs Vital Signs: reviewed preoperatively; see RN documention for details Height: 161.29 cm Weight: 70.307 kg ANE Physical Exam - Airway Neck exam: FROM Mallampati Score: Class 2 Mouth exam: normal dental/mouth exam - Pulmonary Pulmonary: no respiratory distress, clear to auscultation - Cardiovascular Cardiovascular: regular rate and rhythym, no murmur, rub, or gallop - ASA Status ASA Status: III ANE Anesthesia Plan Anesthesia Plan: general endotracheal anesthesia, epidural
[2018-01-13] MEDS ORDERED: BUPIVACAINE 0.5% 30 ML SDV ONE (06:50)
[2018-01-13] MEDS ORDERED: PROPOFOL 200 MG/20 ML VIAL ONE (07:12)
[2018-01-13] MEDS ORDERED: fentaNYL 100 MCG/2 ML INJ ONE (07:12)
[2018-01-13] MEDS ORDERED: ROCURONIUM 50 MG/5 ML VIAL ONE (07:13)
[2018-01-13] MEDS ORDERED: LIDOCAINE 2% 100 MG/5 ML SYR ONE ×2 (07:13)
[2018-01-13] MEDS ORDERED: ROPIVACAINE HCL 150 MG/30 ML INJ ONE (07:59)
[2018-01-13] MEDS ORDERED: NALOXONE HCL 0.4 MG/ML INJ IVP PRN ×2 (08:28→11:43)
[2018-01-13] MEDS ORDERED: diphenhydrAMINE 25 MG CAP PO PRN ×2 (08:28→10:30)
[2018-01-13] MEDS ORDERED: NARCOTIC DRIP BAG-TOTAL ALL TYPES EP PRN (08:28)
[2018-01-13] MEDS ORDERED: ONDANSETRON 4 MG/2 ML VIAL IVP PRN ×2 (08:28→10:30)
[2018-01-13] MEDS ORDERED: ONDANSETRON 4 MG/2 ML VIAL ONE (09:05)
[2018-01-13] MEDS ORDERED: DEXAMETHASONE 4 MG/ML VIAL ONE (09:05)
[2018-01-13] MEDS ORDERED: PROPOFOL/EMULSION 500 MG/50 ML BOTTLE IV ONE (09:37)
--- NOTE | 2018-01-13 10:29 | POSTOPPROG ---
Post Op Note Date of Operation: 01/13/18 Surgeon: Rianna Salazar Veneer Sawyer: miguel Anesthesiologist: opal Anesthesia: GET(General Endotracheal) Pre-op Diagnosis: enterocutaneous fistula Post-op Diagnosis: same Indication: 57yo F with endometrial ca and enterocutaneous fistula, draining Procedure: ex lap with FRANSICO, SB resection and ileocolic anastomosis, hernia repair Findings: ventral hernia, adhesions with loops of SB stuck deep in pelvis Inf/Abcess present in the surg proc area at time of surgery?: Yes Depth: Organ Space EBL: 100-500 Specimen(s): small bowel
[2018-01-13] MEDS ORDERED: ONDANSETRON DISINTEGRATING 4 MG TAB PO PRN (10:30)
[2018-01-13] MEDS ORDERED: HYDROmorphone HCL/NS 0.5 MG/ML SYR IVP PRN (10:33)
[2018-01-13] MEDS ORDERED: SUGAMMADEX SODIUM 200 MG/2 ML VIAL IVP ONE (10:35)
[2018-01-13] MEDS ORDERED: PROMETHAZINE HCL 25 MG/ML INJ ONE (11:40)
[2018-01-13] MEDS ORDERED: PROMETHAZINE HCL 25 MG/ML INJ IVP PRN (11:43)
[2018-01-13] MEDS ORDERED: fentaNYL 100 MCG/2 ML INJ IVP PRN (11:43)
[2018-01-13] MEDS ORDERED: ACETAMINOPHEN 500 MG TAB PO PRN (11:43)
--- NOTE | 2018-01-13 11:45 | POSTANESTH ---
Post Anesthetic Evaluation Cardiovascular Status: Normal, Stable, Similar to Pre-Op Cond Respiratory Status: Normal, Stable, Similar to Pre-op Cond. Level of Consciousness/Mental Status: Can Participate in Eval Pain Control: Adequate, Prn Tx Ordered Nausea/Vomiting Control: Adequate, Prn Tx Ordered Complications Possibly Related to Anesthesia: None Noted
[2018-01-13] MEDS: REGARDING ANTICOAG MISC SCH (12:06)
[2018-01-13] MEDS: DC NARCS MISC SCH (12:06)
--- NOTE | 2018-01-13 12:34 | PDMN ---
Medical Necessity Medical necessity: S250 bowel surgery: small intestine resection 4-5 days : Exp. Laparotomy with Lysis of adhesions, Sm. Bowel resection and ileocolic anastomosis, hernia repair
[2018-01-13] MEDS: ACETAMINOPHEN 325 MG TAB PO PRN (20:00)
[2018-01-13] MEDS: HEPARIN 5,000 UNIT/0.5 ML SYR SC SCH (20:01)
[2018-01-13] MEDS: TAMOXIFEN CITRATE 10 MG TAB PO SCH (20:02)
[2018-01-13] MEDS ORDERED: MEGESTROL ACETATE 40 MG TAB PO SCH (21:00)
[2018-01-13] MEDS: NS 1,000 ML IV SCH (22:37)
[2018-01-14] MEDS: ACETAMINOPHEN 325 MG TAB PO PRN (02:07)
[2018-01-14] MEDS: fentaNYL 200 MCG, BUPIVACAINE 0.5% 20 ML in NS 100 ML IV SCH (04:22)
[2018-01-14 05:21] LABS: PLATELET COUNT 203 10^3/uL (150-400)
[2018-01-14] MEDS: NS 1,000 ML IV SCH ×2 (06:34→17:37)
[2018-01-14] MEDS ORDERED: HEPARIN 5,000 UNIT/0.5 ML SYR SC SCH (08:00)
[2018-01-14] MEDS ORDERED: NON-FORMULARY NEW DRUG (Tamoxifen Citrate [Tamoxifen Citrate] 20 MG) PO SCH (09:00)
[2018-01-14] MEDS: cefTRIAXone 2 GM in STERILE WATER INJ 20 ML IV SCH (09:33)
[2018-01-14] MEDS: TAMOXIFEN CITRATE 10 MG TAB PO SCH ×2 (09:33→22:16)
[2018-01-14] MEDS: amLODIPine BESYLATE 5 MG TAB PO SCH (09:34)
[2018-01-14] MEDS: REGARDING ANTICOAG MISC SCH (09:34)
[2018-01-14] MEDS: DC NARCS MISC SCH (09:34)
[2018-01-14] MEDS: HYDROCHLOROTHIAZIDE 25 MG TAB PO SCH (09:34)
[2018-01-14] MEDS: HEPARIN 5,000 UNIT/0.5 ML SYR SC SCH ×2 (09:34→22:15)
--- NOTE | 2018-01-14 13:12 | POSTANESTH ---
Post Anesthetic Evaluation Cardiovascular Status: Normal, Stable, Similar to Pre-Op Cond Respiratory Status: Normal, Stable, Similar to Pre-op Cond. Level of Consciousness/Mental Status: Can Participate in Eval, Alert and Oriented Pain Control: Adequate, Prn Tx Ordered Nausea/Vomiting Control: Adequate, Prn Tx Ordered Complications Possibly Related to Anesthesia: None Noted Notes: POD1 S/P ex lap, PCEA in place. Pt rates pain control as excellent. One episode of nausea w/ small emesis after walking, requests phenergan. Back site c/d/i, no e/e/e. Denies STRINGER/pruritis/rash. Plan: Continue PCEA base rate 6cc/hr, 3 cc q 15 min bolus. Will plan disposition of catheter in conjunction with surgical team, maximum duration would be 7 days. Hold heparin am on day of planned d/c. Ambulate with assistance. Phenergan 6.25 q 6 prn nausea. Please page with any questions
[2018-01-14] MEDS: PROMETHAZINE HCL 25 MG/ML INJ IVP PRN ×2 (13:56→20:53)
--- NOTE | 2018-01-14 16:50 | ASMTCMCOM ---
CM Note CM Note Notes: Pt with hx of endometrial ca had surgery yesterday. Pt's DC needs unclear. CM will continue to follow, Date Signed: 01/14/2018 04:50 PM Electronically Signed By:Rose Nelson LCSW
--- NOTE | 2018-01-14 22:18 | SOAPPROG ---
SOAP Progress Note Assessment/Plan: Assessment: POD # 1 s/p small bowel resection with ileocolic anastomosis for EC fistula Doing very well Neuro - epidural Resp - cough deep breath Cards - holding BP meds due to hypotension GI - Awaiting bowel function to return FEN - Sips and chips Heme/ID - IV abx - day 2 of 7 Proph - Heparin sq Dispo - continue inpatient S: Pain controlled. No flatus. Some nausea O: CTAB RRR BS present, soft, dressing cdi Plan: 01/14/18 22:16 Objective: Vital Signs Temp Pulse Resp BP Pulse Ox 37.7 C 85 15 140/82 H 96 01/14/18 19:58 01/14/18 22:00 01/14/18 22:00 01/14/18 19:58 01/14/18 22:00 Laboratory Results 01/14/18 04:33 01/14/18 04:33 01/13/18 01/14/18 01/15/18 05:59 05:59 05:59 Intake Total 4575 1516 Output Total 1150 450 Balance 3425 1066 ICD10 Worksheet Patient Problems: Problems Problem Status Onset Myalgia Acute Neutropenic fever Acute
[2018-01-15] MEDS: NS 1,000 ML IV SCH ×2 (04:18→14:59)
[2018-01-15] MEDS: cefTRIAXone 2 GM in STERILE WATER INJ 20 ML IV SCH (08:59)
[2018-01-15] MEDS: TAMOXIFEN CITRATE 10 MG TAB PO SCH ×2 (09:02→22:18)
[2018-01-15] MEDS: HEPARIN 5,000 UNIT/0.5 ML SYR SC SCH ×2 (09:02→22:22)
[2018-01-15] MEDS: amLODIPine BESYLATE 5 MG TAB PO SCH (09:02)
[2018-01-15] MEDS: HYDROCHLOROTHIAZIDE 25 MG TAB PO SCH (09:02)
[2018-01-15] MEDS: fentaNYL 200 MCG, BUPIVACAINE 0.5% 20 ML in NS 100 ML IV SCH (10:38)
--- NOTE | 2018-01-15 12:05 | SOAPPROG ---
SOAP Progress Note Assessment/Plan: Assessment/Plan: 57yo F with endometrial ca, POD #2 s/p small bowel resection with ileocolic anastomosis for enterocutaneous fistula, FRANSICO Neuro - epidural, pain controlled Resp - cough deep breathe, IS, ambulation Cards - holding BP meds due to hypotension GI - passing flatus - advance to clears FEN -Clear liquid diet - go slow - will keep marquez while epidural in - likely 1-2 more days Heme/ID - therapeutic IV abx (day 3) Ppx - Heparin sq Dispo - continue inpatient for pain control and return of bowel function S: Feels very well today. Pain controlled. Passing flatus. No nausea O: Laying in bed, comfortable, NAD No increased WOB BS present throughout, soft, appropriately tender. Dressing cdi Marquez clear yellow urine Objective: Vital Signs Temp Pulse Resp BP Pulse Ox 37.3 C 86 14 135/82 H 96 01/15/18 08:21 01/15/18 10:46 01/15/18 10:46 01/15/18 10:46 01/15/18 10:46 Laboratory Results 01/14/18 04:33 01/14/18 04:33 01/14/18 01/15/18 01/16/18 05:59 05:59 05:59 Intake Total 8952 1776 Output Total 1150 900 Balance 5452 7412 ICD10 Worksheet Patient Problems: Problems Problem Status Onset Myalgia Acute Neutropenic fever Acute
--- NOTE | 2018-01-15 12:40 | POSTANESTH ---
Post Anesthetic Evaluation Cardiovascular Status: Normal, Stable, Similar to Pre-Op Cond Respiratory Status: Normal, Stable, Similar to Pre-op Cond. Level of Consciousness/Mental Status: Can Participate in Eval, Alert and Oriented Pain Control: Adequate, Prn Tx Ordered Nausea/Vomiting Control: Adequate, Prn Tx Ordered Complications Possibly Related to Anesthesia: None Noted Notes: POD2 s/p Ex LAP, PCEA. Pain control excellent. Denies negative side effects, N /V/STRINGER/pruritis. Back site c/d/i, no e/e/e; reinforced the dressing. ABle to ambulate with assistance. Appears to be recovering well from surgery, her diet is advancing. Plan: Continue PCEA tonight, 6ml/hr continuous, bolus 3 ml q 15 prn. Hold infusion in the am. Please hold am heparin dose. If patient is able to tolerate PO medications and pain is controlled will remove epidural catheter tomorrow afternoon. Please page with questions. [phone]
[2018-01-15] MEDS: DC NARCS MISC SCH (16:01)
[2018-01-15] MEDS: REGARDING ANTICOAG MISC SCH (16:01)
--- NOTE | 2018-01-15 18:01 | ASMTCMCOM ---
CM Note CM Note Notes: Reviewed chart, spoke with ZANE Walters regarding discharge plan of care, pt's progress. Per Selena, pt is POD #2 s/p small bowel resection with a hx of endometrial cancer and will be here a few more days. 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 PT is recommending home with no needs. OT evals pending. Discharge needs remain unclear at this time. CM will continue to follow. Current Discharge Plan: To be determined Date Signed: 01/15/2018 06:00 PM Electronically Signed By:Bryanna Wyman RN
[2018-01-16] MEDS: fentaNYL 200 MCG, BUPIVACAINE 0.5% 20 ML in NS 100 ML IV SCH (02:06)
[2018-01-16] MEDS: NS 1,000 ML IV SCH ×2 (02:29→21:32)
--- NOTE | 2018-01-16 08:35 | SOAPPROG ---
SOAP Progress Note Assessment/Plan: Assessment/Plan: 57-year-old female status post takedown of enterocutaneous fistula - patient is doing well today, her epidural as been off this morning with anticipated removal today. Patient has oral [place] and IV breakthrough Dilaudid as needed. - tolerating clear liquids, will maintain clear liquids today. She does feel as though bowel movement is imminent, she has been passing flatus. Her abdomen is otherwise soft, nondistended and appropriately tender - Cramer out once epidural was removed - encourage ambulation 01/16/18 08:34 Subjective: Doing well, passing flatus. Tolerating clear liquids Objective: Vital Signs Temp Pulse Resp BP Pulse Ox 37.2 C 78 14 134/85 H 97 01/16/18 04:00 01/16/18 06:04 01/16/18 06:04 01/16/18 06:04 01/16/18 06:04 Laboratory Results 01/14/18 04:33 01/14/18 04:33 01/15/18 01/16/18 01/17/18 05:59 05:59 05:59 Intake Total 8749 1508 Output Total 900 1350 150 Balance 1779 158 -150 ICD10 Worksheet Patient Problems: Problems Problem Status Onset Myalgia Acute Neutropenic fever Acute
[2018-01-16] MEDS: amLODIPine BESYLATE 5 MG TAB PO SCH (09:09)
[2018-01-16] MEDS: HYDROCHLOROTHIAZIDE 25 MG TAB PO SCH (09:09)
[2018-01-16] MEDS: cefTRIAXone 2 GM in STERILE WATER INJ 20 ML IV SCH (09:09)
[2018-01-16] MEDS: TAMOXIFEN CITRATE 10 MG TAB PO SCH ×2 (09:09→21:24)
[2018-01-16] MEDS: HEPARIN 5,000 UNIT/0.5 ML SYR SC SCH ×2 (09:53→21:24)
--- NOTE | 2018-01-16 10:39 | POSTANESTH ---
Post Anesthetic Evaluation Cardiovascular Status: Normal, Stable Respiratory Status: Normal, Stable Level of Consciousness/Mental Status: Can Participate in Eval Pain Control: Adequate, Prn Tx Ordered Nausea/Vomiting Control: Adequate, Prn Tx Ordered Complications Possibly Related to Anesthesia: None Noted (epidural discontinued with tip intact and site clear.)
[2018-01-16] MEDS: REGARDING ANTICOAG MISC SCH (11:29)
[2018-01-16] MEDS: DC NARCS MISC SCH (11:29)
[2018-01-16] MEDS: HYDROCODONE/APAP 5/325 TAB PO PRN ×2 (13:07→21:30)
[2018-01-17] MEDS: NS 1,000 ML IV SCH (09:32)
[2018-01-17] MEDS: amLODIPine BESYLATE 5 MG TAB PO SCH (09:46)
[2018-01-17] MEDS: HYDROCHLOROTHIAZIDE 25 MG TAB PO SCH (09:46)
[2018-01-17] MEDS: TAMOXIFEN CITRATE 10 MG TAB PO SCH (09:47)
[2018-01-17] MEDS: HEPARIN 5,000 UNIT/0.5 ML SYR SC SCH (09:47)
[2018-01-17] MEDS: cefTRIAXone 2 GM in STERILE WATER INJ 20 ML IV SCH (09:51)
--- NOTE | 2018-01-17 10:50 | PDDCSUM ---
Discharge Summary Discharge Summary: DISCHARGE SUMMARY Date of Admission January 12 Date of Discharge January 17 DISCHARGE DIAGNOSES -enterocutaneous fistula status post take down HOSPITAL COURSE The patient was admitted and taken to the operating room where she underwent exploratory laparotomy with lysis of adhesions, small-bowel resection and ileocolonic anastomosis with a concomitant hernia repair. She was subsequently transferred to the general medical floor, her diet was advanced and well tolerated with appropriate return of bowel function on day of discharge. Her pain is well controlled on oral narcotics. DISCHARGE MEDICATIONS Only new medication was [place] as needed for pain DISPOSITION Home FOLLOW UP Follow up with Dr. Salazar in the office in 10-14 days for a general post- operative visit
[2018-01-17] MEDS: HYDROCODONE/APAP 5/325 TAB PO PRN (11:23)
[2018-01-17 11:25] VITALS: BP 122/74
== END 2018-01-17 13:37 | disposition home or self-care (01) | DRG 331 ==
LOC: F3N 05:42 → F1N 07:48
PROVIDERS: ADMIT Surgery; ATTEND Surgery
PROC: 0D1 Gastrointestinal System, Bypass (ICD-10-PCS; principal; 2018-01-13 07:15)
PROC: 0DB88ZX Excision of Small Intestine, Via Natural or Artificial Opening Endoscopic, Diagnostic (ICD-10-PCS; principal; 2018-01-13 07:15)
PROC: 0WQF4ZZ Repair Abdominal Wall, Percutaneous Endoscopic Approach (ICD-10-PCS; principal; 2018-01-13 07:15)
DX: K63.2 Fistula of intestine (principal); K43.9 Ventral hernia without obstruction or gangrene; K66.0 Peritoneal adhesions (postprocedural) (postinfection); I10 Essential (primary) hypertension; Z85.42 Personal history of malignant neoplasm of other parts of uterus; Z90.710 Acquired absence of both cervix and uterus; Z90.49 Acquired absence of other specified parts of digestive tract; Z90.722 Acquired absence of ovaries, bilateral; Z92.3 Personal history of irradiation; Z82.49 Family history of ischemic heart disease and other diseases of the circulatory system
CPT/HCPCS: 97161-GP; C9399; J0694; J0696; J1100; J1200; J1644; J2001; J2250; J2405; J2550; J2704; J2795; J3010